=== PATIENT | male | born 1965 | race Caucasian/White ===

== ENCOUNTER 2018-04-29 14:37 | Inpatient (IN) | payer OTHER ==
--- NOTE | 2018-04-29 15:06 | PDOC ---
History of Present Illness - General Chief Complaint: Altered Mental Status Stated Complaint: AMS Time Seen by Provider: 04/29/18 15:06 - History of Present Illness Initial Comments: 04/29/18 15:13 Mr. Medina is a 52 yo male w/ pmh of diffuse large B cell lymphoma s/p chemotherapy complicated by aplastic anemia (last chemo in February R-CHOP, itMTX ; discontinued as patient platelets were reportedly extremely low) who presents for evaluation of altered mental status. Patient had been recently admitted to [facility] 01/31/18-02/11/2018 for SOB w/ hematemesis, multiple falls, and AMS and was found to be in aplastic crisis with SAH, distributive shock, and lactic acidosis. Was treated in NSICU for IV ABX and blood products. R-ICE started . Patient discharged with dx of paraneoplastic vs. disease infiltration for outpatient f/u. Niece who is with him reports he had been improving since then however yesterday started "talking to the air" however responding appropriately. Today they noticed him not answering questions appropriately at all. Niece also believes he has looked yellow for 3-4 days. Denies other symptoms at this time. FULL CODE Past History - Past Medical History Allergies/Adverse Reactions: Allergies Allergy/AdvReac Type Severity Reaction Status Date / Time No Known Allergies Allergy Verified 04/29/18 15:04 Home Medications: Ambulatory Orders Eltrombopag Olamine [Promacta] 50 mg PO DAILY 04/29/18 Filgrastim [Neupogen] 300 mcg IJ ASDIR 04/29/18 Filgrastim-Sndz [Zarxio] 300 mcg IJ ASDIR 04/29/18 Levofloxacin [Levaquin] 500 mg PO ASDIR 04/29/18 Posaconazole [Noxafil] 100 mg PO ASDIR 04/29/18 Valacyclovir HCl [Valtrex -] 1,000 mg PO ASDIR 04/29/18 Review of Systems - Review of Systems Comments:: 04/29/18 15:23 Unable to obtain further. *Physical Exam - Physical Exam Comments: 04/29/18 15:23 GENERAL: +Patient not oriented at this time. Appears yellow in color. Awake, alert, in no acute distress HEAD: No signs of trauma, normocephalic, atraumatic EYES: +Conjunctiva yellowed. PERRLA, EOMI, sclera anicteric ENT: Auricles normal inspection, hearing grossly normal, nares patent, oropharynx clear without exudates. Moist mucosa NECK: Normal ROM, supple, no lymphadenopathy, JVD, or masses LUNGS: No distress, speaks full sentences, clear to auscultation bilaterally HEART: Regular rate and rhythm, normal S1 and S2, no murmurs, rubs or gallops, peripheral pulses normal and equal bilaterally. ABDOMEN: Soft, nontender, normoactive bowel sounds. No guarding, no rebound. No masses EXTREMITIES: +Asterixis noted. Normal inspection, Normal range of motion, no edema. No clubbing or cyanosis. NEUROLOGICAL: +Right sided neglect noted. Cranial nerves II through XII grossly intact. Normal speech, no focal sensorimotor deficits SKIN: Warm, Dry, normal turgor, no rashes or lesions noted. ED Treatment Course - LABORATORY CBC & Chemistry Diagram: 04/29/18 15:30 04/29/18 15:30 Medical Decision Making - Medical Decision Making 04/29/18 16:21 Mr. Medina is a 52 yo male w/ pmh as described who presents for evaluation of symptoms concerning for aplastic anemia vs. cranial process vs. hyperammonemia vs. other acute process. Patient evaluation started with broad septic and AMS workup. Patient noted to be severely anemic upon CBC with low platelets; hematology paged (Abhilash Khan). 04/29/18 16:51 Patient lactate elevated. 04/29/18 16:58 2 units PRBC and 1 unit platelets ordered. Discussed patient with Hematology ( Dr. Zeng) who recommended empiric ABX Vanc/Zosyn for coverage. Agreed with blood products. 04/29/18 17:[address] negative for acute bleed. 04/29/18 17:[address] Perdomo of [facility] who did not believe patient stable for transfer at this time. Suggested admission to ICU for stabilization and agreed with patient receiving 2 units PRBC's and 1 unit platelets as well as ABX admin. No further oncologic treatment suggested emergently at this time beyond stabilization. Transfer to be revisited tomorrow. Patient Head CT negative. Patient CXR negative. 04/29/18 19:17 Discussed with MICHELLE Restrepo for admission to ICU. Patient niece made aware patient will stay. Divina [phone] Laboratory Results - last 24 hr 04/29/18 04/29/18 04/29/18 15:25 15:30 15:30 WBC 3.0 L RBC 0.67 L Hgb 2.2 L* Hct 6.0 L MCV 88.5 MCH 32.6 MCHC 36.9 H RDW 12.9 Plt Count 8 L* MPV 10.0 Absolute Neuts (auto) 1.3 L Neutrophils % 43.9 Lymphocytes % 38.7 Monocytes % 15.2 H Eosinophils % 1.7 Basophils % 0.5 Nucleated RBC % 0 PT with INR Cancelled INR Cancelled PTT (Actin FS) Cancelled VBG pH POC VBG pCO2 POC VBG pO2 VBG HCO3 VBG O2 Sat (Emily) VBG Base Excess Sodium Potassium Chloride Carbon Dioxide Anion Gap BUN Creatinine Creat Clearance w eGFR Random Glucose Lactic Acid Calcium Total Bilirubin AST ALT Alkaline Phosphatase Ammonia Troponin I Total Protein Albumin Urine Color Yellow Urine Appearance Clear Urine pH 6.0 Ur Specific [place] 1.011 Urine Protein Negative Urine Glucose (UA) Negative Urine Ketones Negative Urine Blood Negative Urine Nitrite Negative Urine Bilirubin Negative Urine Urobilinogen 0.2 Ur Leukocyte Esterase Trace Urine WBC (Auto) 3 Urine RBC (Auto) 3 Urine Casts (Auto) 6 U Epithel Cells (Auto) 1.9 Urine Bacteria (Auto) 1.512 Anti-A Titer Blood Type Antibody Screen Crossmatch 04/29/18 04/29/18 04/29/18 15:30 15:30 15:30 WBC RBC Hgb Hct MCV MCH MCHC RDW Plt Count MPV Absolute Neuts (auto) Neutrophils % Lymphocytes % Monocytes % Eosinophils % Basophils % Nucleated RBC % PT with INR INR PTT (Actin FS) VBG pH 7.24 L POC VBG pCO2 38.2 L POC VBG pO2 48.7 H VBG HCO3 15.9 L VBG O2 Sat (Emily) 71.4 VBG Base Excess -10.0 L Sodium 136 Potassium 4.8 Chloride 105 Carbon Dioxide 14 L Anion Gap 17 H BUN 13 Creatinine 1.2 Creat Clearance w eGFR 63.58 Random Glucose 112 H Lactic Acid Calcium 8.4 L Total Bilirubin 1.1 H AST 34 ALT 59 Alkaline Phosphatase 214 H Ammonia 51.50 H Troponin I < 0.02 Total Protein 6.5 Albumin 3.3 L Urine Color Urine Appearance Urine pH Ur Specific [place] Urine Protein Urine Glucose (UA) Urine Ketones Urine Blood Urine Nitrite Urine Bilirubin Urine Urobilinogen Ur Leukocyte Esterase Urine WBC (Auto) Urine RBC (Auto) Urine Casts (Auto) U Epithel Cells (Auto) Urine Bacteria (Auto) Anti-A Titer Blood Type Antibody Screen Crossmatch 04/29/18 04/29/18 04/29/18 15:30 16:24 17:15 WBC RBC Hgb Hct MCV MCH MCHC RDW Plt Count MPV Absolute Neuts (auto) Neutrophils % Lymphocytes % Monocytes % Eosinophils % Basophils % Nucleated RBC % PT with INR INR PTT (Actin FS) VBG pH POC VBG pCO2 POC VBG pO2 VBG HCO3 VBG O2 Sat (Emily) VBG Base Excess Sodium Potassium Chloride Carbon Dioxide Anion Gap BUN Creatinine Creat Clearance w eGFR Random Glucose Lactic Acid 9.4 H* 6.2 H* Calcium Total Bilirubin AST ALT Alkaline Phosphatase Ammonia Troponin I Total Protein Albumin Urine Color Urine Appearance Urine pH Ur Specific [place] Urine Protein Urine Glucose (UA) Urine Ketones Urine Blood Urine Nitrite Urine Bilirubin Urine Urobilinogen Ur Leukocyte Esterase Urine WBC (Auto) Urine RBC (Auto) Urine Casts (Auto) U Epithel Cells (Auto) Urine Bacteria (Auto) Anti-A Titer Blood Type A POSITIVE Antibody Screen Negative Crossmatch See Detail 04/29/18 04/29/18 17:15 17:15 WBC RBC Hgb Hct MCV MCH MCHC RDW Plt Count MPV Absolute Neuts (auto) Neutrophils % Lymphocytes % Monocytes % Eosinophils % Basophils % Nucleated RBC % PT with INR INR PTT (Actin FS) VBG pH POC VBG pCO2 POC VBG pO2 VBG HCO3 VBG O2 Sat (Emily) VBG Base Excess Sodium Potassium Chloride Carbon Dioxide Anion Gap BUN Creatinine Creat Clearance w eGFR Random Glucose Lactic Acid Calcium Total Bilirubin AST ALT Alkaline Phosphatase Ammonia Troponin I Total Protein Albumin Urine Color Urine Appearance Urine pH Ur Specific [place] Urine Protein Urine Glucose (UA) Urine Ketones Urine Blood Urine Nitrite Urine Bilirubin Urine Urobilinogen Ur Leukocyte Esterase Urine WBC (Auto) Urine RBC (Auto) Urine Casts (Auto) U Epithel Cells (Auto) Urine Bacteria (Auto) Anti-A Titer Cancelled Blood Type Cancelled A POSITIVE Antibody Screen Cancelled Crossmatch *DC/Admit/Observation/Transfer Diagnosis at time of Disposition: Aplastic anemia B-cell lymphoma Qualifiers: B-cell lymphoma type: diffuse large B-cell Lymphoma site: unspecified region Qualified Code(s): C83.30 - Diffuse large B-cell lymphoma, unspecified site - Discharge Dispostion Decision to Admit order: Yes - Referrals - Patient Instructions - Post Discharge Activity
[2018-04-29 15:57] LABS: VENOUS PC02 38.2 mmHg (41-51); VENOUS PH 7.24 (7.31-7.41); VENOUS PO2 48.7 mmHg (30-40)
[2018-04-29 16:09] LABS: BASO % 0.5 % (0-2.0); EOS % 1.7 % (0-4.5); LYMPH % 38.7 % (8-40); MCH 32.6 pg (25.7-33.7); MCHC 36.9 g/dl (32.0-35.9); MEAN CELL VOLUME 88.5 fl (80-96); MONO % 15.2 % (3.8-10.2); NEUT % 43.9 % (42.8-82.8); RBC 0.67 M/mm3 (4.00-5.60); RDW 12.9 % (11.9-15.9)
[2018-04-29 16:15] LABS: HEMOGLOBIN 2.2 GM/dL (11.7-16.9); PLATELET COUNT 8 K/MM3 (134-434)
[2018-04-29 16:26] LABS: ALBUMIN 3.3 g/dl (3.4-5.0); ALK PHOS 214 U/L (45-117); ANION GAP 17 MMOL/L (8-16); BILIRUBIN,TOTAL 1.1 mg/dL (0.2-1); BLOOD UREA NITROGEN 13 mg/dL (7-18); CALCIUM 8.4 mg/dL (8.5-10.1); CHLORIDE 105 mmol/L (98-107); CO2 14 mmol/L (21-32); CREATININE 1.2 mg/dL (0.55-1.3); GLUCOSE,RANDOM 112 mg/dL (74-106); POTASSIUM 4.8 mmol/L (3.5-5.1); SGOT/AST 34 U/L (15-37); SGPT/ALT 59 U/L (13-61); SODIUM 136 mmol/L (136-145); TOT PROT 6.5 g/dl (6.4-8.2)
[2018-04-29] MEDS ORDERED: LORazepam 2 MG/ML SDV VIAL ONE (16:26)
[2018-04-29 16:41] LABS: EPI CELLS 1.9 /HPF (0-5); URINE APPEARANCE CLEAR; URINE BACTERIA 1.512 /hpf (NEGATIVE); URINE BILIRUBIN NEGATIVE (<2.0 mg/dL); URINE CASTS 6 /hpf (0-8); URINE COLOR YELLOW; URINE GLUCOSE (UA) NEGATIVE (NEGATIVE); URINE KETONE NEGATIVE (NEGATIVE); URINE LEUK ESTERASE TRACE (NEGATIVE); URINE NITRITE NEGATIVE (NEGATIVE); URINE PROTEIN NEGATIVE (NEGATIVE); URINE RBC 3 /hpf (0-4); URINE UROBILINOGEN 0.2 mg/dL (0.2-1.0); URINE WBC 3 /hpf (0-5)
[2018-04-29] MEDS ORDERED: PIPERACILLIN/TAZOB 3.375 GM 3.375 GM in DEXTROSE 5%-WATER - 50 ML IVPB ONE (16:57)
[2018-04-29] MEDS ORDERED: VANCOMYCIN 1 GM in D5W (PRE-DOCKED) 1,000 MG/250 ML IVPB ONE (16:57)
[2018-04-29] MEDS ORDERED: PIPERACILLIN/TAZOB 3.375 GM 3.375 GM/50 ML BAG IVPB ONE (17:07)
[2018-04-29] MEDS ORDERED: VANCOMYCIN 1 GRAM (PRE-DOCKED) 1,000 MG/250 ML BAG IVPB ONE (17:27)
--- NOTE | 2018-04-29 17:30 | PDOC ---
Attending Attestation - HPI HPI: 04/29/18 17:33 The patient is a 52-year-old female with past medical history significant for B cell lymphoma s/p chemotherapy complicated by aplastic anemia (the last chemo in February R-CHOP, itMTX; discontinued as patient platelets were reportedly extremely low) presents to the emergency department for AMS. Per niece at the bedside, The patients been acting weird for the past 2 days, states she noticed the patient was talking to the air 2 days ago, however, the patient was responding appropriately. Which changes earlier today, states the patient wasn t answering questions appropriately. The niece reports associated symptoms of the patient appear more yellow for the past 3-4 days. The patient lives with family members. The patient was admitted to [facility] on 01/31/2018 for shortness of breath with hematemesis, AMS and multiple falls. The patient was found to be an aplastic crisis with SAH, distributive shock, and lactic acidosis. The patient was treated in NSICU with IV abx and blood product. The patient was started on R -ICE on 02/08/2018. The patient was discharged on 02/11/2018 with a dx of paraneoplastic vs. disease infiltration for outpatient f/u. Allergies: NKDA PCP: Not on staff. - Physicial Exam PE: 04/29/18 17:32 GENERAL: AOx0. The patient is awake. in no acute distress HEAD: No signs of trauma EYES: PERRLA, EOMI, scleral icterus, conjunctiva clear ENT: Auricles normal inspection, hearing grossly normal, nares patent. Moist mucosa NECK: supple, no JVD, or masses LUNGS: Breath sounds equal, clear to auscultation bilaterally. No wheezes, and no crackles HEART: Regular rate and rhythm, normal S1 and S2, no murmurs, rubs or gallops ABDOMEN: Soft, nontender. No guarding, no rebound. No masses EXTREMITIES: no edema. No clubbing or cyanosis. No cords, erythema, or tenderness NEUROLOGICAL: +right side neglect, doesnt follow commands, appears to move extremities grossly. SKIN: Warm, Dry, normal turgor, no rashes or lesions noted. - Medical Decision Making 04/29/18 17:33 Documentation prepared by Liliana Truong, acting as medical authorization specialist for Presley Pollock MD. 04/29/18 17:34 Phone Call: Call placed to Dr. Santoro/Azucena at 4:47 pm. Spoke with service and waiting for a call back. Case discussed with Dr. Zeng at 4:52 pm. Call placed to [facility] 5:24 pm. Information exchanged with the service. Waiting for a call back from Dr. Del Rosario, on-call hem/onc. Second call placed to [facility] 6:11 pm. Case discussed with Dr. Perdomo at 6:17 pm. 04/29/18 17:41 EXAM: CT Head EXAM DATE AND TIME: 2018-04-29 16:36:22 FINDINGS: The cerebral sulci and ventricles are normal in size for the patient' s age. There are no intracranial hemorrhages, extra-axial fluid collections or evidence of an intra-axial mass lesion. There is no clear evidence of chronic ischemic demyelination. Cerebral grijalva/white matter differentiation is preserved , without clear evidence of an acute ischemic lesion at this time. Orbital and petrous structures, cerebellopontine angles, and posterior fossa appear unremarkable. The paranasal and mastoid sinuses are clear. IMPRESSION: The study is otherwise unremarkable. No evidence of acute or chronic ischemic change. No intracranial hemorrhages, extra-axial fluid collections or intra- axial mass lesion. THIS DOCUMENT HAS BEEN ELECTRONICALLY SIGNED Tony Chinchilla MD. 04/29/2018 17:10 EST <Liliana Truong - Last Filed: 04/29/18 18:17> - Resident Resident Name: Edmond Anna - ED Attending Attestation I have performed the following: I have examined & evaluated the patient, The case was reviewed & discussed with the resident, I agree w/resident's findings & plan, Exceptions are as noted - Medical Decision Making 04/29/18 17:28 A portion of this note was documented by scribe services under my direction. I have reviewed the details of the note, within reason, and agree with the documentation with the following case summary and management plan written by me. Patient treated in the ED. Nursing notes are reviewed and incorporated into the medical decision-making. Vital signs reviewed. Peripheral IV access obtained by the nurse, laboratory studies are drawn and sent, reviewed and interpreted by myself. Vital Signs Temp Pulse Resp BP Pulse Ox 97.2 F L 117 H 16 126/64 100 04/29/18 15:29 04/29/18 16:50 04/29/18 16:50 04/29/18 16:50 04/29/18 16:50 52-year-old male with past medical history of diffuse B-cell lymphoma, last chemotherapy in February 2018, plastic anemia, presents with altered mental status. Since yesterday, the patient's niece had noted that the patient has become increasingly altered. The patient has been neglecting his right side. An has also noticed that he's becoming increasing jaundice. Patient denies any pain but otherwise does not follow directions. Patient's blood work demonstrates anemia as well as from a cytopenia. Initially I was concerned for spontaneous brain bleed but the head CT is negative. We'll however need transfused PRBCs and platelets. Patient's has an elevated lactate so we'll cover empirically with vancomycin and Zosyn. The patient's symptoms and findings are likely secondary to his cancer. Given the complexity of the case, case is discussed with Dr. Zeng. Requests that we speak to Harsha Lucien/ Onc. 04/29/18 18:35 CBC, BMP 04/29/18 15:30 04/29/18 15:30 CMP Sodium 136 mmol/L (136-145) 04/29/18 15:30 Potassium 4.8 mmol/L (3.5-5.1) 04/29/18 15:30 Chloride 105 mmol/L (98-107) 04/29/18 15:30 Carbon Dioxide 14 mmol/L (21-32) L 04/29/18 15:30 Anion Gap 17 MMOL/L (8-16) H 04/29/18 15:30 BUN 13 mg/dL (7-18) 04/29/18 15:30 Creatinine 1.2 mg/dL (0.55-1.3) 04/29/18 15:30 Creat Clearance w eGFR 63.58 (>60) 04/29/18 15:30 Random Glucose 112 mg/dL (74-106) H 04/29/18 15:30 Lactic Acid 6.2 mmol/L (0.4-2.0) H* 04/29/18 17:15 Calcium 8.4 mg/dL (8.5-10.1) L 04/29/18 15:30 Total Bilirubin 1.1 mg/dL (0.2-1) H 04/29/18 15:30 AST 34 U/L (15-37) 04/29/18 15:30 ALT 59 U/L (13-61) 04/29/18 15:30 Alkaline Phosphatase 214 U/L (45-117) H 04/29/18 15:30 Ammonia 51.50 umol/L (11-32) H 04/29/18 15:30 Troponin I < 0.02 ng/ml (0.00-0.05) 04/29/18 15:30 Total Protein 6.5 g/dl (6.4-8.2) 04/29/18 15:30 Albumin 3.3 g/dl (3.4-5.0) L 04/29/18 15:30 Urine Test Results Urine Color Yellow 04/29/18 15:25 Urine Appearance Clear 04/29/18 15:25 Urine pH 6.0 (5.0-8.0) 04/29/18 15:25 Ur Specific [place] 1.011 (1.010-1.035) 04/29/18 15:25 Urine Protein Negative (NEGATIVE) 04/29/18 15:25 Urine Glucose (UA) Negative (NEGATIVE) 04/29/18 15:25 Urine Ketones Negative (NEGATIVE) 04/29/18 15:25 Urine Blood Negative (NEGATIVE) 04/29/18 15:25 Urine Nitrite Negative (NEGATIVE) 04/29/18 15:25 Urine Bilirubin Negative (<2.0 mg/dL) 04/29/18 15:25 Ur Leukocyte Esterase Trace (NEGATIVE) 04/29/18 15:25 Pt's laboratory demonstrates multiple issues. Pt is anemic and pt thrombocytopenic. Case discussed with Dr. Del Rosario (Heme onc attending). Agrees with our plan for PRBCs and platelets. Head CT is negative for bleed. Given elevated lactic acid and SBP 90s, states that we should treat this as sepsis. Pt given vanc and zosyn. Dr. Perdomo states patient should be stabilized and should be transferred tomorrow once stabilized. States no new other treatments needed, and we should treat as sepsis. After lengthy discussion with the attending, the patient will be kept here at [facility] ICU and then considered for transfer tomorrow. <Presley Pollock - Last Filed: 04/29/18 18:38> Heart Score/ECG Review #1 ECG reviewed & interpreted by me at: 17:35 04/29/18 17:54 NSR 101, low voltage QRS, no std/nikole, QTC 461 msec <Presley Pollock - Last Filed: 04/29/18 18:38>
[2018-04-29 19:18] LABS: INR 1.2 (0.83-1.09); PROTHROMBIN TIME (PATIENT) 14.2 SEC (9.7-13.0)
--- NOTE | 2018-04-29 19:44 | PN ---
Teaching Attending Note Name of Resident: Angel Ramsey ATTENDING PHYSICIAN STATEMENT I saw and evaluated the patient. I reviewed the resident's note and discussed the case with the resident. I agree with the resident's findings and plan as documented. SUBJECTIVE: Seen and examined; please refer to resident note for further historical documentation. Briefly, this is a 52 y/o male presenting to the ER with AMS; niece saw him at home and noted that he was stuttering and not responding to questions appropriately. He was found to have aplastic anemia. ER and ICU spoke with [facility] who requested that we stabilize the patient and that they would accept him tomorrow. In the ER he was able to follow simple commands but was unable to speak just responding with sounds. Difficult neuro exam but no obvious FNDs. In terms of his cancer care, he was on RICE/itMTX but has not gotten treatment since early March due to issues with aplastic crisis. Hospitalized earlier this year at [facility] for AMS, falls, hemetemsis, SAH and distributive shock with lactic acidosis. Diagnosis at that time was paraneoplasticvs. disease infiltration. Niece provided history to ER but was unfortunately gone by the time I got there. When I saw the patient he was already in the ICU and he was mentating better than aforementioned with hemodynamics improved (stable BP, HR 110s) and he had already gotten 2 units of blood at that time. He is on prophys with valtrex/noxafil/LQ as documented. Neupogen and promacta noted on med list as well. ER discussed with Dr. Zeng who recommended vanc and zosyn. Per documentation they spoke with Dr. Perdomo of [facility] who recommended stabilation prior to xf. He has been accepted to the ICU and will be monitored on our service. 10 sys ROS done and negative aside from HPI PMH (B-cell lymphoma follows at [facility]), PSH, Family hx, Social hx reviewed Medications reviewed; pending reconciliation Home Medications Medication Instructions Recorded Eltrombopag Olamine [Promacta] 50 mg PO DAILY 04/29/18 Filgrastim [Neupogen] 300 mcg IJ ASDIR 04/29/18 Filgrastim-Sndz [Zarxio] 300 mcg IJ ASDIR 04/29/18 Levofloxacin [Levaquin] 500 mg PO ASDIR 04/29/18 Posaconazole [Noxafil] 100 mg PO ASDIR 04/29/18 Valacyclovir HCl [Valtrex -] 1,000 mg PO ASDIR 04/29/18 OBJECTIVE: VS, labs, imaging reviewed NAD, AAOx1, resting in bed, pale and confused NC AT EOMI PERRLA Tachycardic but sinus, s1/2 no mgr Lungs CTAB, w/ sym exp NT ND +BS CN2-12 wnl, no fnd, only orientated to self. Confused; poor thought progression and thought content lacking only; not agitated CT head done negative for acute pathology Labs show pancytopenia across all cell lines. ASSESSMENT AND PLAN: Presents to the hospital with AMS found to have aplastic crisis with AG+ Lactic Acidosis; he has B-cell lymphoma for which he follows at [facility] 1) Pancytopenia/Aplastic Crisis 2) Lactic Acidosis 3) Elevated bilirubin/Alk Phos -Niece concerned at home he was 'looking yellow;' I do not know if his bili is baseline elevated or not. Check GGT and RUQ u/s; would be useful to compare to old labs at [facility]. Checking lipase. If needed consult GI. 4) Elevated Ammonia 5) Neutropenia 6) Altered mental status 7) B-cell Lymphoma (s/p R-ICE, itMTX) Admitting to ICU; transfusing 2 units PRBC and placing 2 on hold. Transfusing platelets. Continue vanc and zosyn; noted on prophys so will continue valtrex and noxafil for now and defer further tx to heme/onc and ID. Consulting ID. Plan to transfer tomorrow to [facility] once stabilized. Frequent neuro checks with seizure precautions, NPO for now. Mentation is improved from ER to ICU. Consider hepatic encephalopathy as potential cause; consider starting lactulose in AM (avoiding rectal given neutropenia and furthermore his mentation, while slightly improved, would be prohibitive of reliable oral dosing) Aggressively hydrating and rechecking lactate; trended down to 6. Will continue to trend and keep him on isotonic fluids overnight. Appreciate excellent care rendered in ER and ICU Full Code
--- NOTE | 2018-04-29 21:54 | HP ---
CHIEF COMPLAINT: AMS PCP: HISTORY OF PRESENT ILLNESS: 52 yo M w/ pmhx of diffuse large B cell lymphoma s/p chemotherapy complicated by aplastic anemia (last chemo in February R-CHOP, itMTX; discontinued as patient platelets were reportedly extremely low) who presents for evaluation of altered mental status. Patient had been recently admitted to [facility] 01/31/18 -02/11/2018 for SOB w/ hematemesis, multiple falls, and AMS and was found to be in aplastic crisis with SAH, distributive shock, and lactic acidosis. Was treated in NSICU for IV ABX and blood products. R-ICE started 02/08/18. Patient discharged with dx of paraneoplastic vs. disease infiltration for outpatient f/ u. Niece who is with him reports he had been improving since then however yesterday started "talking to the air" however responding appropriately. Today they noticed him not answering questions appropriately at all. Niece also believes he has looked yellow for 3-4 days. ER course was notable for: (1) Labs show aplastic anemia (2)1 unit PRBC's (3)1 unit Plt.s Recent Travel: denies PAST MEDICAL HISTORY: B-cell lymphoma PAST SURGICAL HISTORY: none mentioned by niece. Social History: Smoking:never Alcohol:denied Drugs: denied Family History: Allergies No Known Allergies Allergy (Verified 04/29/18 15:04) HOME MEDICATIONS: Home Medications Medication Instructions Recorded Eltrombopag Olamine [Promacta] 50 mg PO DAILY 04/29/18 Filgrastim [Neupogen] 300 mcg IJ ASDIR 04/29/18 Filgrastim-Sndz [Zarxio] 300 mcg IJ ASDIR 04/29/18 Levofloxacin [Levaquin] 500 mg PO ASDIR 04/29/18 Posaconazole [Noxafil] 100 mg PO ASDIR 04/29/18 Valacyclovir HCl [Valtrex -] 1,000 mg PO ASDIR 04/29/18 REVIEW OF SYSTEMS unable to obtain 2/2 clinical condition. PHYSICAL EXAMINATION Vital Signs - 24 hr 04/29/18 04/29/18 04/29/18 15:04 15:29 16:50 Temperature 97.2 F L Pulse Rate 114 H Pulse Rate [ 117 H Apical] Respiratory 24 H 16 Rate Blood Pressure 94/60 Blood Pressure 126/64 [Right Arm] O2 Sat by Pulse 92 L 100 Oximetry (%) 04/29/18 04/29/18 04/29/18 18:03 18:27 18:35 Temperature 98.3 F 98.5 F Pulse Rate 103 H Pulse Rate [ 92 H 92 H Apical] Respiratory 16 12 16 Rate Blood Pressure 110/90 Blood Pressure 76/39 L 95/50 L [Right Arm] O2 Sat by Pulse 97 97 Oximetry (%) 04/29/18 19:57 Temperature Pulse Rate Pulse Rate [ 90 Apical] Respiratory 18 Rate Blood Pressure Blood Pressure 91/60 [Right Arm] O2 Sat by Pulse 100 Oximetry (%) GENERAL: lethargic minimally responsive. HEAD: NCAT EYES: PERRLA,EOMI, sclera anicteric, conjunctiva clear. EARS, NOSE, THROAT:dry mucous membranes. NECK: supple with JVD present. LUNGS: CTAB. No wheezes, and no crackles. No accessory muscle use. HEART: RRR, normal S1 and S2 without murmur, rub or gallop. ABDOMEN: Soft, NTND, NABS, no guarding, no rebound, no masses. No hepatomegaly or splenomegaly. LOWER EXTREMITIES: 2+ pulses, warm, well-perfused. No calf tenderness. No peripheral edema. NEUROLOGICAL: lethargic and minimally responsive. PSYCHIATRIC: uncooperative. poor eye contact. SKIN: Warm, dry, normal turgor, no rashes or lesions noted, normal capillary refill. Laboratory Results - last 24 hr 04/29/18 04/29/18 04/29/18 15:25 15:30 15:30 WBC 3.0 L RBC 0.67 L Hgb 2.2 L* Hct 6.0 L MCV 88.5 MCH 32.6 MCHC 36.9 H RDW 12.9 Plt Count 8 L* MPV 10.0 Absolute Neuts (auto) 1.3 L Neutrophils % 43.9 Lymphocytes % 38.7 Monocytes % 15.2 H Eosinophils % 1.7 Basophils % 0.5 Nucleated RBC % 0 PT with INR Cancelled INR Cancelled PTT (Actin FS) Cancelled VBG pH POC VBG pCO2 POC VBG pO2 VBG HCO3 VBG O2 Sat (Emily) VBG Base Excess Sodium Potassium Chloride Carbon Dioxide Anion Gap BUN Creatinine Creat Clearance w eGFR Random Glucose Lactic Acid Calcium Total Bilirubin AST ALT Alkaline Phosphatase Ammonia Troponin I Total Protein Albumin Urine Color Yellow Urine Appearance Clear Urine pH 6.0 Ur Specific [place] 1.011 Urine Protein Negative Urine Glucose (UA) Negative Urine Ketones Negative Urine Blood Negative Urine Nitrite Negative Urine Bilirubin Negative Urine Urobilinogen 0.2 Ur Leukocyte Esterase Trace Urine WBC (Auto) 3 Urine RBC (Auto) 3 Urine Casts (Auto) 6 U Epithel Cells (Auto) 1.9 Urine Bacteria (Auto) 1.512 Anti-A Titer Blood Type Antibody Screen Crossmatch 04/29/18 04/29/18 04/29/18 15:30 15:30 15:30 WBC RBC Hgb Hct MCV MCH MCHC RDW Plt Count MPV Absolute Neuts (auto) Neutrophils % Lymphocytes % Monocytes % Eosinophils % Basophils % Nucleated RBC % PT with INR INR PTT (Actin FS) VBG pH 7.24 L POC VBG pCO2 38.2 L POC VBG pO2 48.7 H VBG HCO3 15.9 L VBG O2 Sat (Emily) 71.4 VBG Base Excess -10.0 L Sodium 136 Potassium 4.8 Chloride 105 Carbon Dioxide 14 L Anion Gap 17 H BUN 13 Creatinine 1.2 Creat Clearance w eGFR 63.58 Random Glucose 112 H Lactic Acid Calcium 8.4 L Total Bilirubin 1.1 H AST 34 ALT 59 Alkaline Phosphatase 214 H Ammonia 51.50 H Troponin I < 0.02 Total Protein 6.5 Albumin 3.3 L Urine Color Urine Appearance Urine pH Ur Specific [place] Urine Protein Urine Glucose (UA) Urine Ketones Urine Blood Urine Nitrite Urine Bilirubin Urine Urobilinogen Ur Leukocyte Esterase Urine WBC (Auto) Urine RBC (Auto) Urine Casts (Auto) U Epithel Cells (Auto) Urine Bacteria (Auto) Anti-A Titer Blood Type Antibody Screen Crossmatch 04/29/18 04/29/18 04/29/18 15:30 16:24 17:15 WBC RBC Hgb Hct MCV MCH MCHC RDW Plt Count MPV Absolute Neuts (auto) Neutrophils % Lymphocytes % Monocytes % Eosinophils % Basophils % Nucleated RBC % PT with INR INR PTT (Actin FS) VBG pH POC VBG pCO2 POC VBG pO2 VBG HCO3 VBG O2 Sat (Emily) VBG Base Excess Sodium Potassium Chloride Carbon Dioxide Anion Gap BUN Creatinine Creat Clearance w eGFR Random Glucose Lactic Acid 9.4 H* 6.2 H* Calcium Total Bilirubin AST ALT Alkaline Phosphatase Ammonia Troponin I Total Protein Albumin Urine Color Urine Appearance Urine pH Ur Specific [place] Urine Protein Urine Glucose (UA) Urine Ketones Urine Blood Urine Nitrite Urine Bilirubin Urine Urobilinogen Ur Leukocyte Esterase Urine WBC (Auto) Urine RBC (Auto) Urine Casts (Auto) U Epithel Cells (Auto) Urine Bacteria (Auto) Anti-A Titer Blood Type A POSITIVE Antibody Screen Negative Crossmatch See Detail 04/29/18 04/29/18 04/29/18 17:15 17:15 17:32 WBC RBC Hgb Hct MCV MCH MCHC RDW Plt Count MPV Absolute Neuts (auto) Neutrophils % Lymphocytes % Monocytes % Eosinophils % Basophils % Nucleated RBC % PT with INR 14.20 H INR 1.20 H PTT (Actin FS) 26.0 VBG pH POC VBG pCO2 POC VBG pO2 VBG HCO3 VBG O2 Sat (Emily) VBG Base Excess Sodium Potassium Chloride Carbon Dioxide Anion Gap BUN Creatinine Creat Clearance w eGFR Random Glucose Lactic Acid Calcium Total Bilirubin AST ALT Alkaline Phosphatase Ammonia Troponin I Total Protein Albumin Urine Color Urine Appearance Urine pH Ur Specific [place] Urine Protein Urine Glucose (UA) Urine Ketones Urine Blood Urine Nitrite Urine Bilirubin Urine Urobilinogen Ur Leukocyte Esterase Urine WBC (Auto) Urine RBC (Auto) Urine Casts (Auto) U Epithel Cells (Auto) Urine Bacteria (Auto) Anti-A Titer Cancelled Blood Type Cancelled A POSITIVE Antibody Screen Cancelled Crossmatch ASSESSMENT/PLAN: 52 yo M w/ pmhx of 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 Problem List - Problem (1) Aplastic anemia Assessment/Plan: admit to ICU * transfused 2 units of PRBC will order for 2 more. - repeat CBC in AM * Transfuse plt. * CT head was negative for acute bleed. * Empiric antibiotics. * Continue Prophylaxis with Valacyclovir and antifungal * ID consult * Heme/Onc consult * awaiting transfer to [facility] (2) B-cell lymphoma Visit type - Emergency Visit Emergency Visit: Yes ED Registration Date: 04/29/18 Care time: The patient presented to the Emergency Department on the above date and was hospitalized for further evaluation of their emergent condition. - New Patient This patient is new to me today: Yes Date on this admission: 04/30/18 - Critical Care Critical Care patient: Yes Total Critical Care Time (in minutes): 63 Critical Care Statement: The care of this patient involved high complexity decision making to prevent further life threatening deterioration of the patient 's condition and/or to evaluate & treat vital organ system(s) failure or risk of failure.
[2018-04-29] MEDS: MUPIROCIN 2% TOPICAL OINTMENT FOR DECOLONIZATION NS SCH (22:43)
[2018-04-29] MEDS: CHLORHEXIDINE GLUCONATE 4% CLEANSER FOR DECOLONIZATION TP SCH (22:43)
[2018-04-29] MEDS ORDERED: LORazepam 2 MG/ML SDV VIAL IVPUSH STA (23:25)
[2018-04-29] MEDS ORDERED: valACYclovir HCL 1000 MG TABLET PO SCH (23:30)
[2018-04-29] MEDS: LORazepam 2 MG/ML SDV VIAL IVPUSH PRN (23:57)
[2018-04-30] MEDS: SODIUM CHLORIDE 1,000 ML IV SCH (02:24)
[2018-04-30 02:55] LABS: BASO % 0.2 % (0-2.0); EOS % 1.9 % (0-4.5); HEMATOCRIT 10.8 % (35.4-49); HEMOGLOBIN 3.9 GM/dL (11.7-16.9); LYMPH % 19.5 % (8-40); MCH 29.2 pg (25.7-33.7); MCHC 36.4 g/dl (32.0-35.9); MEAN CELL VOLUME 80.3 fl (80-96); MEAN PLT VOLUME 8.5 fl (7.5-11.1); MONO % 19.3 % (3.8-10.2); NEUT % 59.1 % (42.8-82.8); PLATELET COUNT 47 K/MM3 (134-434); RBC 1.35 M/mm3 (4.00-5.60); RDW 14.4 % (11.9-15.9); WHITE BLOOD COUNT 1.3 K/mm3 (4.0-10.0)
[2018-04-30] MEDS ORDERED: SODIUM BICARBONATE 8.4% - 50 ML ONE (04:21)
[2018-04-30 05:28] LABS: ANISOCYTOSIS 2+; MACROCYTOSIS 1+; PLATELET ESTIMATE DECREASED
--- NOTE | 2018-04-30 07:42 | CONSULT ---
Consult Consult Specialty:: PULM/CCM Referred by:: Dr. Baldo Kirk Reason for Consultation:: Neutropenic infection/AA crisis - History of Present Illness Chief Complaint: AMS History of Present Illness: Mr. Medina is a 52 y/o man w/ DLBCL on Chemo c/b AA (last chemo in February R- CHOP + itMTX; d/c'ed 2/2 thrombocytopenia) pt of Dr. Santoro & Dr. Zeng ( [facility] Heme/Onc). Pt family presents the pt to the ED yesterday (04/29) for AMS (talking to the air, not making any sense). Of note, the pt is followed by Onc at [facility]. The pt receives all of his care at [facility]. All of the pt's records are at [facility]. The [facility] to [facility]. The pt was admitted last to [facility] on 01/31/2018 for AMS, multiple falls, hematemesis, & SOB. At that time the pt was found to be in AA crisis w/ distributive shock & an SAH. The patient was treated in NSICU with IV abx and blood products. The patient was started on R-ICE on 02/08/2018. The patient was discharged on 02/11/2018 with a dx of paraneoplastic vs. disease infiltration for outpatient f/u. In the ED the pt was notable for stewart-cytopenia, fever, and AMS m/l multifactorial: neutropenic infection, Chemo, bone marrow suppression, AA crisis all or any combo there of +/-. I instructed Dr. Edmond Perez to: stewart-clxr, adm PRBCs X2U, Plts, Vanc, Zo, & immediately X-Vamsi the pt to [facility] for best patient care. I explained that once the pt is admitted to this ICU he becomes an ICU - ICU X- Vamsi which is very difficult w/ [facility]. I explained that the fastest, safest , and best course for this patient would be immediately X-Vamsi the pt to [facility] s/p PRBCs, Plts, & Abx. My instructions were completely disregarded and the pt was promptly sent to this ICU. - History Source History Provided By: Transfer Record Limitations to Obtaining History: Clinical Condition - Past Medical History Heme/Onc: Yes: Anemia, Other (DLBCL) Infectious Disease: Yes: Other (Neutropenic) - Alcohol/Substance Use Hx Alcohol Use: No - Smoking History Smoking history: Never smoked - Social History Usual Living Arrangement: Other (w/ Family) ADL: Family Assistance Place of : Other History of Recent Travel: No Home Medications - Allergies Allergies/Adverse Reactions: Allergies Allergy/AdvReac Type Severity Reaction Status Date / Time No Known Allergies Allergy Verified 04/29/18 15:04 - Home Medications Home Medications: Ambulatory Orders Eltrombopag Olamine [Promacta] 50 mg PO DAILY 04/29/18 Filgrastim [Neupogen] 300 mcg IJ ASDIR 04/29/18 Filgrastim-Sndz [Zarxio] 300 mcg IJ ASDIR 04/29/18 Levofloxacin [Levaquin] 500 mg PO ASDIR 04/29/18 Posaconazole [Noxafil] 100 mg PO ASDIR 04/29/18 Valacyclovir HCl [Valtrex -] 1,000 mg PO ASDIR 04/29/18 Family Disease History - Family Disease History Family History: Unable to Obtain (AMS) Review of Systems Unable to obtain ROS, reason: AMS Physical Exam Vital Signs: Vital Signs Temperature 97.4 F L 04/30/18 05:00 Pulse Rate 103 H 04/30/18 05:00 Respiratory Rate 12 04/30/18 05:00 Blood Pressure 92/63 04/30/18 05:00 O2 Sat by Pulse Oximetry (%) 100 04/29/18 19:57 Intake & Output 04/27/18 04/28/18 04/29/18 04/30/18 23:59 23:59 23:59 23:59 Intake Total 350 1100 Balance 350 1100 Weight 56.331 kg 56.331 kg Constitutional: Yes: Well Nourished, Anxious Eyes: Yes: WNL, Conjunctiva Clear, EOM Intact HENT: Yes: WNL, Atraumatic, Normocephalic Neck: Yes: WNL, Supple, Trachea Midline Cardiovascular: Yes: WNL, Regular Rate and Rhythm, Tachycardia, S1, S2 Respiratory: Yes: WNL, Regular, CTA Bilaterally Gastrointestinal: Yes: WNL, Normal Bowel Sounds, Soft ...Rectal Exam: Yes: Deferred Renal/: Yes: WNL Breast(s): Yes: WNL Musculoskeletal: Yes: WNL Extremities: Yes: WNL Edema: No Peripheral Pulses WNL: Yes Integumentary: Yes: Jaundice Neurological: Yes: Confusion ...Motor Strength: WNL Psychiatric: Yes: Agitated Labs: CBC, BMP 04/30/18 02:24 04/29/18 15:30 Laboratory Tests 04/29/18 04/29/18 04/29/18 15:25 15:30 15:30 WBC 3.0 L RBC 0.67 L Hgb 2.2 L* Hct 6.0 L MCV 88.5 MCH 32.6 MCHC 36.9 H RDW 12.9 Plt Count 8 L* MPV 10.0 Absolute Neuts (auto) 1.3 L Neutrophils % 43.9 Neutrophils % (Manual) Band Neutrophils % Lymphocytes % 38.7 Lymphocytes % (Manual) Monocytes % 15.2 H Monocytes % (Manual) Eosinophils % 1.7 Eosinophils % (Manual) Basophils % 0.5 Basophils % (Manual) Myelocytes % (Man) Promyelocytes % (Man) Blast Cells % (Manual) Nucleated RBC % 0 Metamyelocytes Hypochromia Platelet Estimate Polychromasia Poikilocytosis Anisocytosis Microcytosis Macrocytosis Spherocytes PT with INR Cancelled INR Cancelled PTT (Actin FS) Cancelled VBG pH POC VBG pCO2 POC VBG pO2 VBG HCO3 VBG O2 Sat (Emily) VBG Base Excess Sodium Potassium Chloride Carbon Dioxide Anion Gap BUN Creatinine Creat Clearance w eGFR Random Glucose Lactic Acid Calcium Total Bilirubin AST ALT Alkaline Phosphatase Ammonia Troponin I Total Protein Albumin Urine Color Yellow Urine Appearance Clear Urine pH 6.0 Ur Specific [place] 1.011 Urine Protein Negative Urine Glucose (UA) Negative Urine Ketones Negative Urine Blood Negative Urine Nitrite Negative Urine Bilirubin Negative Urine Urobilinogen 0.2 Ur Leukocyte Esterase Trace Urine WBC (Auto) 3 Urine RBC (Auto) 3 Urine Casts (Auto) 6 U Epithel Cells (Auto) 1.9 Urine Bacteria (Auto) 1.512 Anti-A Titer Blood Type Antibody Screen Crossmatch 04/29/18 04/29/18 04/29/18 15:30 15:30 15:30 WBC RBC Hgb Hct MCV MCH MCHC RDW Plt Count MPV Absolute Neuts (auto) Neutrophils % Neutrophils % (Manual) Band Neutrophils % Lymphocytes % Lymphocytes % (Manual) Monocytes % Monocytes % (Manual) Eosinophils % Eosinophils % (Manual) Basophils % Basophils % (Manual) Myelocytes % (Man) Promyelocytes % (Man) Blast Cells % (Manual) Nucleated RBC % Metamyelocytes Hypochromia Platelet Estimate Polychromasia Poikilocytosis Anisocytosis Microcytosis Macrocytosis Spherocytes PT with INR INR PTT (Actin FS) VBG pH 7.24 L POC VBG pCO2 38.2 L POC VBG pO2 48.7 H VBG HCO3 15.9 L VBG O2 Sat (Emily) 71.4 VBG Base Excess -10.0 L Sodium 136 Potassium 4.8 Chloride 105 Carbon Dioxide 14 L Anion Gap 17 H BUN 13 Creatinine 1.2 Creat Clearance w eGFR 63.58 Random Glucose 112 H Lactic Acid Calcium 8.4 L Total Bilirubin 1.1 H AST 34 ALT 59 Alkaline Phosphatase 214 H Ammonia 51.50 H Troponin I < 0.02 Total Protein 6.5 Albumin 3.3 L Urine Color Urine Appearance Urine pH Ur Specific [place] Urine Protein Urine Glucose (UA) Urine Ketones Urine Blood Urine Nitrite Urine Bilirubin Urine Urobilinogen Ur Leukocyte Esterase Urine WBC (Auto) Urine RBC (Auto) Urine Casts (Auto) U Epithel Cells (Auto) Urine Bacteria (Auto) Anti-A Titer Blood Type Antibody Screen Crossmatch 04/29/18 04/29/18 04/29/18 15:30 16:24 17:15 WBC RBC Hgb Hct MCV MCH MCHC RDW Plt Count MPV Absolute Neuts (auto) Neutrophils % Neutrophils % (Manual) Band Neutrophils % Lymphocytes % Lymphocytes % (Manual) Monocytes % Monocytes % (Manual) Eosinophils % Eosinophils % (Manual) Basophils % Basophils % (Manual) Myelocytes % (Man) Promyelocytes % (Man) Blast Cells % (Manual) Nucleated RBC % Metamyelocytes Hypochromia Platelet Estimate Polychromasia Poikilocytosis Anisocytosis Microcytosis Macrocytosis Spherocytes PT with INR INR PTT (Actin FS) VBG pH POC VBG pCO2 POC VBG pO2 VBG HCO3 VBG O2 Sat (Emily) VBG Base Excess Sodium Potassium Chloride Carbon Dioxide Anion Gap BUN Creatinine Creat Clearance w eGFR Random Glucose Lactic Acid 9.4 H* 6.2 H* Calcium Total Bilirubin AST ALT Alkaline Phosphatase Ammonia Troponin I Total Protein Albumin Urine Color Urine Appearance Urine pH Ur Specific [place] Urine Protein Urine Glucose (UA) Urine Ketones Urine Blood Urine Nitrite Urine Bilirubin Urine Urobilinogen Ur Leukocyte Esterase Urine WBC (Auto) Urine RBC (Auto) Urine Casts (Auto) U Epithel Cells (Auto) Urine Bacteria (Auto) Anti-A Titer Blood Type A POSITIVE Antibody Screen Negative Crossmatch See Detail 04/29/18 04/29/18 04/29/18 17:15 17:15 17:32 WBC RBC Hgb Hct MCV MCH MCHC RDW Plt Count MPV Absolute Neuts (auto) Neutrophils % Neutrophils % (Manual) Band Neutrophils % Lymphocytes % Lymphocytes % (Manual) Monocytes % Monocytes % (Manual) Eosinophils % Eosinophils % (Manual) Basophils % Basophils % (Manual) Myelocytes % (Man) Promyelocytes % (Man) Blast Cells % (Manual) Nucleated RBC % Metamyelocytes Hypochromia Platelet Estimate Polychromasia Poikilocytosis Anisocytosis Microcytosis Macrocytosis Spherocytes PT with INR 14.20 H INR 1.20 H PTT (Actin FS) 26.0 VBG pH POC VBG pCO2 POC VBG pO2 VBG HCO3 VBG O2 Sat (Emily) VBG Base Excess Sodium Potassium Chloride Carbon Dioxide Anion Gap BUN Creatinine Creat Clearance w eGFR Random Glucose Lactic Acid Calcium Total Bilirubin AST ALT Alkaline Phosphatase Ammonia Troponin I Total Protein Albumin Urine Color Urine Appearance Urine pH Ur Specific [place] Urine Protein Urine Glucose (UA) Urine Ketones Urine Blood Urine Nitrite Urine Bilirubin Urine Urobilinogen Ur Leukocyte Esterase Urine WBC (Auto) Urine RBC (Auto) Urine Casts (Auto) U Epithel Cells (Auto) Urine Bacteria (Auto) Anti-A Titer Cancelled Blood Type Cancelled A POSITIVE Antibody Screen Cancelled Crossmatch 04/30/18 04/30/18 02:24 02:24 WBC 1.3 L* RBC 1.35 L Hgb 3.9 L* Hct 10.8 L MCV 80.3 D MCH 29.2 D MCHC 36.4 H RDW 14.4 D Plt Count 47 L D MPV 8.5 D Absolute Neuts (auto) 0.8 L Neutrophils % 59.1 D Neutrophils % (Manual) 60.6 Band Neutrophils % 1.0 Lymphocytes % 19.5 D Lymphocytes % (Manual) 22.2 Monocytes % 19.3 H Monocytes % (Manual) 9 Eosinophils % 1.9 Eosinophils % (Manual) 0.0 Basophils % 0.2 Basophils % (Manual) 0.0 Myelocytes % (Man) 1 Promyelocytes % (Man) 0 Blast Cells % (Manual) 5 H Nucleated RBC % 0 Metamyelocytes 1 Hypochromia 1+ Platelet Estimate Decreased Polychromasia 0 Poikilocytosis 0 Anisocytosis 2+ Microcytosis 2+ Macrocytosis 1+ Spherocytes 1+ PT with INR INR PTT (Actin FS) VBG pH POC VBG pCO2 POC VBG pO2 VBG HCO3 VBG O2 Sat (Emily) VBG Base Excess Sodium Potassium Chloride Carbon Dioxide Anion Gap BUN Creatinine Creat Clearance w eGFR Random Glucose Lactic Acid 1.0 Calcium Total Bilirubin AST ALT Alkaline Phosphatase Ammonia Troponin I Total Protein Albumin Urine Color Urine Appearance Urine pH Ur Specific [place] Urine Protein Urine Glucose (UA) Urine Ketones Urine Blood Urine Nitrite Urine Bilirubin Urine Urobilinogen Ur Leukocyte Esterase Urine WBC (Auto) Urine RBC (Auto) Urine Casts (Auto) U Epithel Cells (Auto) Urine Bacteria (Auto) Anti-A Titer Blood Type Antibody Screen Crossmatch Imaging - Results Chest X-ray: Image Reviewed (CXR 04/29: Clear but PLEASE NOTE: cannot r/o PNA as pt is extremely volume down and this PNA may not show on CXR until the pt has been properly resucitated (My Read).) Cat Scan: Report Reviewed (04/29/18 17:41 EXAM: CT Head EXAM DATE AND TIME: 2018 16:36:22 FINDINGS: The cerebral sulci and ventricles are normal in size for the patient's age. There are no intracranial hemorrhages, extra-axial fluid collections or evidence of an intra-axial mass lesion. There is no clear evidence of chronic ischemic demyelination. Cerebral grijalva/white matter differentiation is preserved, without clear evidence of an acute ischemic lesion at this time. Orbital and petrous structures, cerebellopontine angles, and posterior fossa appear unremarkable. The paranasal and mastoid sinuses are clear. IMPRESSION: The study is otherwise unremarkable. No evidence of acute or chronic ischemic change. No intracranial hemorrhages, extra-axial fluid collections or intra-axial mass lesion.) Ultrasound: Report Reviewed (ABD US 04/29: Multiple gallbladder calculi are noted with resultant partial obscuration of the posterior gallbladder wall and fundus. There appears to be mild thickening of the visualized ventral gallbladder wall. No obvious pericholecystic fluid accumulation is noted allowing for partially obscuring artifact arising from the previously described multiple calculi. There is no obvious gallbladder overdistention. The common bile duct diameter appears unremarkable measuring 0.3 cm. The liver, right kidney and partially visualized pancreas demonstrate no obvious pathology. No free intraperitoneal fluid is seen. Impression: Cholelithiasis is noted above. There is mild nonspecific thickening of the visualized ventral gallbladder wall. Additional imaging evaluation may be performed if there is clinical concern for possible acute cholecystitis.) EKG: Image Reviewed (12 Lead 04/29: S-Tach @ 110 w/o ectopy, q'ued out in Lead I c/f LWI & global T-wave flattening but low QRS voltage, QTc = 454ms, very poor quality EKG, ?arm lead reversal --> difficult to interpret (My Read).) Problem List - Problems (1) Aplastic anemia Code(s): D61.9 - APLASTIC ANEMIA, UNSPECIFIED (2) B-cell lymphoma Code(s): C85.10 - UNSPECIFIED B-CELL LYMPHOMA, UNSPECIFIED SITE Qualifiers: B-cell lymphoma type: diffuse large B-cell Lymphoma site: unspecified region Qualified Code(s): C83.30 - Diffuse large B-cell lymphoma, unspecified site (3) Neutropenic sepsis Code(s): A41.9 - SEPSIS, UNSPECIFIED ORGANISM; D70.9 - NEUTROPENIA, UNSPECIFIED (4) Altered mental status Code(s): R41.82 - ALTERED MENTAL STATUS, UNSPECIFIED (5) Dehydration Code(s): E86.0 - DEHYDRATION (6) Hyperbilirubinemia Code(s): E80.6 - OTHER DISORDERS OF BILIRUBIN METABOLISM Assessment/Plan ASSESS: This is a 52 y/o man w/ DLBCL on Chemo c/b AA (last chemo in February R- CHOP + itMTX; d/c'ed 2/2 thrombocytopenia) pt of Dr. Santoro & Dr. Zeng ( [facility] Heme/Onc), who presents now w/ stewart-cytopneia & AMS m/l multifactorial : neutropenic infection, Chemo, bone marrow suppression, AA crisis, paraneoplastic, dz infiltration all or any combo there of +/-. Of note: The ED generated a plan to Transfer this pt to [facility] from this ICU However I am unable to Transfer this pt & I have no medical records for this complex patient. PLAN: -Stewart Clxr -Supp FiO2 for an SpO2 > 92% -Nebs -IS -Vanc -Zo -Staci -Immediate ID Consult -Trend LA -Low Threshold to establish CVC -PRBCs for a Hgb of 7.0 -Plts for a goal of > 40 -Prepare for Renal Fail -Stict I's & O's -Trend BUN/Cr -Replete e-lytes prn -Prepare for MSOF -Initiate full Heme/Onc Consult now -Prepare for Lengthy stay in this ICU -Call [facility] & retrieve as much data as possible (Micro, counts, ABx Hx) -Trend LFTs -Lipase -GI Consult -SCDs -No AC -PPI -DNR/DNI -Transfer to Hospice -Meet w/ Family Thank you for this Interesting Consult C[facility], [facility] ICU PULM/CCM [id number] Critical Care Total Critical Care Time (in minutes): 38 Critical Care Statement: The care of this patient involved high complexity decision making to prevent further life threatening deterioration of the patient 's condition and/or to evaluate & treat vital organ system(s) failure or risk of failure.
[2018-04-30] MEDS ORDERED: PIPERACILLIN/TAZOB 3.375 GM 3.375 GM in DEXTROSE 5%-WATER - 50 ML IVPB ONE (08:45)
[2018-04-30] MEDS ORDERED: DEXTROSE 5%-WATER - 50 ML IVPB ONE ×2 (09:04→21:03)
[2018-04-30] MEDS ORDERED: PIPERACILLIN/TAZOBACTAM 3.375 GM VIAL IVPB ONE ×2 (09:04→21:02)
--- NOTE | 2018-04-30 09:06 | PN ---
Progress Note (short form) - Note Progress Note: Subjective: unable to obtain hx. per RN , he has been very restless and confused. last night. received 3 units of RBC and one unit of Plt . he is starting the 4th unit . Objective: Vital Signs: Last Vital Signs Temp Pulse Resp BP Pulse Ox 97.4 F L 103 H 12 92/63 100 04/30/18 05:00 04/30/18 05:00 04/30/18 05:00 04/30/18 05:00 04/29/18 19:57 Laboratory Results - last 24 hr 04/29/18 04/29/18 04/29/18 15:25 15:30 15:30 WBC 3.0 L RBC 0.67 L Hgb 2.2 L* Hct 6.0 L MCV 88.5 MCH 32.6 MCHC 36.9 H RDW 12.9 Plt Count 8 L* MPV 10.0 Absolute Neuts (auto) 1.3 L Neutrophils % 43.9 Neutrophils % (Manual) Band Neutrophils % Lymphocytes % 38.7 Lymphocytes % (Manual) Monocytes % 15.2 H Monocytes % (Manual) Eosinophils % 1.7 Eosinophils % (Manual) Basophils % 0.5 Basophils % (Manual) Myelocytes % (Man) Promyelocytes % (Man) Blast Cells % (Manual) Nucleated RBC % 0 Metamyelocytes Hypochromia Platelet Estimate Polychromasia Poikilocytosis Anisocytosis Microcytosis Macrocytosis Spherocytes PT with INR Cancelled INR Cancelled PTT (Actin FS) Cancelled VBG pH POC VBG pCO2 POC VBG pO2 VBG HCO3 VBG O2 Sat (Emliy) VBG Base Excess Sodium Potassium Chloride Carbon Dioxide Anion Gap BUN Creatinine Creat Clearance w eGFR Random Glucose Lactic Acid Calcium Total Bilirubin AST ALT Alkaline Phosphatase Ammonia Troponin I Total Protein Albumin Urine Color Yellow Urine Appearance Clear Urine pH 6.0 Ur Specific [place] 1.011 Urine Protein Negative Urine Glucose (UA) Negative Urine Ketones Negative Urine Blood Negative Urine Nitrite Negative Urine Bilirubin Negative Urine Urobilinogen 0.2 Ur Leukocyte Esterase Trace Urine WBC (Auto) 3 Urine RBC (Auto) 3 Urine Casts (Auto) 6 U Epithel Cells (Auto) 1.9 Urine Bacteria (Auto) 1.512 Anti-A Titer Blood Type Antibody Screen Crossmatch 04/29/18 04/29/18 04/29/18 15:30 15:30 15:30 WBC RBC Hgb Hct MCV MCH MCHC RDW Plt Count MPV Absolute Neuts (auto) Neutrophils % Neutrophils % (Manual) Band Neutrophils % Lymphocytes % Lymphocytes % (Manual) Monocytes % Monocytes % (Manual) Eosinophils % Eosinophils % (Manual) Basophils % Basophils % (Manual) Myelocytes % (Man) Promyelocytes % (Man) Blast Cells % (Manual) Nucleated RBC % Metamyelocytes Hypochromia Platelet Estimate Polychromasia Poikilocytosis Anisocytosis Microcytosis Macrocytosis Spherocytes PT with INR INR PTT (Actin FS) VBG pH 7.24 L POC VBG pCO2 38.2 L POC VBG pO2 48.7 H VBG HCO3 15.9 L VBG O2 Sat (Emily) 71.4 VBG Base Excess -10.0 L Sodium 136 Potassium 4.8 Chloride 105 Carbon Dioxide 14 L Anion Gap 17 H BUN 13 Creatinine 1.2 Creat Clearance w eGFR 63.58 Random Glucose 112 H Lactic Acid Calcium 8.4 L Total Bilirubin 1.1 H AST 34 ALT 59 Alkaline Phosphatase 214 H Ammonia 51.50 H Troponin I < 0.02 Total Protein 6.5 Albumin 3.3 L Urine Color Urine Appearance Urine pH Ur Specific [place] Urine Protein Urine Glucose (UA) Urine Ketones Urine Blood Urine Nitrite Urine Bilirubin Urine Urobilinogen Ur Leukocyte Esterase Urine WBC (Auto) Urine RBC (Auto) Urine Casts (Auto) U Epithel Cells (Auto) Urine Bacteria (Auto) Anti-A Titer Blood Type Antibody Screen Crossmatch 04/29/18 04/29/18 04/29/18 15:30 16:24 17:15 WBC RBC Hgb Hct MCV MCH MCHC RDW Plt Count MPV Absolute Neuts (auto) Neutrophils % Neutrophils % (Manual) Band Neutrophils % Lymphocytes % Lymphocytes % (Manual) Monocytes % Monocytes % (Manual) Eosinophils % Eosinophils % (Manual) Basophils % Basophils % (Manual) Myelocytes % (Man) Promyelocytes % (Man) Blast Cells % (Manual) Nucleated RBC % Metamyelocytes Hypochromia Platelet Estimate Polychromasia Poikilocytosis Anisocytosis Microcytosis Macrocytosis Spherocytes PT with INR INR PTT (Actin FS) VBG pH POC VBG pCO2 POC VBG pO2 VBG HCO3 VBG O2 Sat (Emily) VBG Base Excess Sodium Potassium Chloride Carbon Dioxide Anion Gap BUN Creatinine Creat Clearance w eGFR Random Glucose Lactic Acid 9.4 H* 6.2 H* Calcium Total Bilirubin AST ALT Alkaline Phosphatase Ammonia Troponin I Total Protein Albumin Urine Color Urine Appearance Urine pH Ur Specific [place] Urine Protein Urine Glucose (UA) Urine Ketones Urine Blood Urine Nitrite Urine Bilirubin Urine Urobilinogen Ur Leukocyte Esterase Urine WBC (Auto) Urine RBC (Auto) Urine Casts (Auto) U Epithel Cells (Auto) Urine Bacteria (Auto) Anti-A Titer Blood Type A POSITIVE Antibody Screen Negative Crossmatch See Detail 04/29/18 04/29/18 04/29/18 17:15 17:15 17:32 WBC RBC Hgb Hct MCV MCH MCHC RDW Plt Count MPV Absolute Neuts (auto) Neutrophils % Neutrophils % (Manual) Band Neutrophils % Lymphocytes % Lymphocytes % (Manual) Monocytes % Monocytes % (Manual) Eosinophils % Eosinophils % (Manual) Basophils % Basophils % (Manual) Myelocytes % (Man) Promyelocytes % (Man) Blast Cells % (Manual) Nucleated RBC % Metamyelocytes Hypochromia Platelet Estimate Polychromasia Poikilocytosis Anisocytosis Microcytosis Macrocytosis Spherocytes PT with INR 14.20 H INR 1.20 H PTT (Actin FS) 26.0 VBG pH POC VBG pCO2 POC VBG pO2 VBG HCO3 VBG O2 Sat (Emily) VBG Base Excess Sodium Potassium Chloride Carbon Dioxide Anion Gap BUN Creatinine Creat Clearance w eGFR Random Glucose Lactic Acid Calcium Total Bilirubin AST ALT Alkaline Phosphatase Ammonia Troponin I Total Protein Albumin Urine Color Urine Appearance Urine pH Ur Specific [place] Urine Protein Urine Glucose (UA) Urine Ketones Urine Blood Urine Nitrite Urine Bilirubin Urine Urobilinogen Ur Leukocyte Esterase Urine WBC (Auto) Urine RBC (Auto) Urine Casts (Auto) U Epithel Cells (Auto) Urine Bacteria (Auto) Anti-A Titer Cancelled Blood Type Cancelled A POSITIVE Antibody Screen Cancelled Crossmatch 04/30/18 04/30/18 02:24 02:24 WBC 1.3 L* RBC 1.35 L Hgb 3.9 L* Hct 10.8 L MCV 80.3 D MCH 29.2 D MCHC 36.4 H RDW 14.4 D Plt Count 47 L D MPV 8.5 D Absolute Neuts (auto) 0.8 L Neutrophils % 59.1 D Neutrophils % (Manual) 60.6 Band Neutrophils % 1.0 Lymphocytes % 19.5 D Lymphocytes % (Manual) 22.2 Monocytes % 19.3 H Monocytes % (Manual) 9 Eosinophils % 1.9 Eosinophils % (Manual) 0.0 Basophils % 0.2 Basophils % (Manual) 0.0 Myelocytes % (Man) 1 Promyelocytes % (Man) 0 Blast Cells % (Manual) 5 H Nucleated RBC % 0 Metamyelocytes 1 Hypochromia 1+ Platelet Estimate Decreased Polychromasia 0 Poikilocytosis 0 Anisocytosis 2+ Microcytosis 2+ Macrocytosis 1+ Spherocytes 1+ PT with INR INR PTT (Actin FS) VBG pH POC VBG pCO2 POC VBG pO2 VBG HCO3 VBG O2 Sat (Emily) VBG Base Excess Sodium Potassium Chloride Carbon Dioxide Anion Gap BUN Creatinine Creat Clearance w eGFR Random Glucose Lactic Acid 1.0 Calcium Total Bilirubin AST ALT Alkaline Phosphatase Ammonia Troponin I Total Protein Albumin Urine Color Urine Appearance Urine pH Ur Specific [place] Urine Protein Urine Glucose (UA) Urine Ketones Urine Blood Urine Nitrite Urine Bilirubin Urine Urobilinogen Ur Leukocyte Esterase Urine WBC (Auto) Urine RBC (Auto) Urine Casts (Auto) U Epithel Cells (Auto) Urine Bacteria (Auto) Anti-A Titer Blood Type Antibody Screen Crossmatch Physical Exam: NAD, comfortable in bed. arousable to verbal command, but answers OK to all questions. In [place] , per [place] speaking RN, he does not make sense. HEENT: dry lips, no thrush in mouth , round equal pupils, reactive to light, no facial droop, no JVD. CV: RRR, no mRG , no JVD Lungs: CTAB anteriorly . no wheezes or crackles Ext : no edema or erythema. no signs of fungal infection in interdigital webs Imaging: Head CT image reviewed: no bleed seen . final report pending cxray image and report was reviewed Assessment/Plan: Unfortunate 52 y/o man with h/o B cell lymphoma, with recent admission to [facility] AMS, SAH, and hematemesis. he presented yesterday as he was found with AMS by his niece. He was found to have aplastic crisis. 1- Aplastic crisis: likely due to progression of his disease , but can't r/o an acute infection/sepsis causing the crisis - s/p 3 units of RBCs, now getting 4th unit - s/p 1 unit of PLt . count improved to 48k - neutropenic . - will repeat counts after transfusion . - neutropenic precautions - heme consult placed - follow blood cx - give another dose of vanc and zosyn now. ID to approve 2- AMS: due to ? infection, vs severe anemia, vs stroke ( per history had neglect of his R side) . unlikely hepatic encephalopathy - hydrate and transfuse blood products and reassess - CT with no big stroke or bleed. - will consider MRI when more stable. - even if he had a stroke he is not a candidate for any intervention or anti- plt therapy. - if needed neuro can be involved 3- Elevated Alk phos, and ammonia: disease process VS other - US of liver pending - GGT pending monitor Dispo: spoke to Dr. Del Rosario from [facility], who accepted patient for a transfer to heme/onc service. Beds are not available though. will be contacted later. paperwork was filled. message left for his niece . awaiting call back Visit type - Emergency Visit Emergency Visit: Yes ED Registration Date: 04/29/18 Care time: The patient presented to the Emergency Department on the above date and was hospitalized for further evaluation of their emergent condition. - New Patient This patient is new to me today: Yes Date on this admission: 04/30/18 - Critical Care Critical Care patient: Yes Total Critical Care Time (in minutes): 45 Critical Care Statement: The care of this patient involved high complexity decision making to prevent further life threatening deterioration of the patient 's condition and/or to evaluate & treat vital organ system(s) failure or risk of failure.
[2018-04-30] MEDS ORDERED: CALCIUM GLUCONATE 10% - 1,000 MG/10 ML VIAL IVPUSH ONE (09:26)
[2018-04-30] MEDS: MUPIROCIN 2% TOPICAL OINTMENT FOR DECOLONIZATION NS SCH ×2 (09:39→21:13)
[2018-04-30] MEDS ORDERED: VANCOMYCIN 750 MG in DEXTROSE 5%-WATER - 250 ML IVPB ONE ×2 (10:00→22:00)
[2018-04-30] MEDS: CALCIUM GLUCONATE 10% - 1,000 MG/10 ML VIAL IVPB SCH ×2 (11:02→12:27)
[2018-04-30] MEDS: valACYclovir HCL 500 MG TABLET (FP) PO SCH (14:03)
[2018-04-30 14:23] LABS: BASO % 0.2 % (0-2.0); HEMATOCRIT 20.3 % (35.4-49); HEMOGLOBIN 7.2 GM/dL (11.7-16.9); LYMPH % 21.4 % (8-40); MCH 28.4 pg (25.7-33.7); MCHC 35.4 g/dl (32.0-35.9); MEAN CELL VOLUME 80.2 fl (80-96); MEAN PLT VOLUME 8.6 fl (7.5-11.1); MONO % 9.5 % (3.8-10.2); NEUT % 64.9 % (42.8-82.8); PLATELET COUNT 44 K/MM3 (134-434); RBC 2.53 M/mm3 (4.00-5.60); RDW 16.1 % (11.9-15.9)
[2018-04-30 14:28] LABS: ALBUMIN 3.1 g/dl (3.4-5.0); ALK PHOS 189 U/L (45-117); ANION GAP 8 MMOL/L (8-16); BILIRUBIN,DIRECT 0.9 mg/dL (0.0-0.2); BILIRUBIN,TOTAL 2.2 mg/dL (0.2-1); BLOOD UREA NITROGEN 12 mg/dL (7-18); CALCIUM 8.7 mg/dL (8.5-10.1); CHLORIDE 110 mmol/L (98-107); CHOLESTEROL 148 mg/dL (50-200); CO2 21 mmol/L (21-32); CREATININE 0.9 mg/dL (0.55-1.3); GLUCOSE,RANDOM 74 mg/dL (74-106); HDL CHOLESTEROL 45 mg/dL (40-60); MAGNESIUM 1.5 mg/dL (1.8-2.4); PHOSPHOROUS 4.2 mg/dL (2.5-4.9); SGOT/AST 38 U/L (15-37); SGPT/ALT 60 U/L (13-61); SODIUM 138 mmol/L (136-145); TRIGLYCERIDES 209 mg/dL (0-150)
[2018-04-30] MEDS: LORazepam 2 MG/ML SDV VIAL IVPUSH PRN ×2 (14:51→22:52)
--- NOTE | 2018-04-30 14:55 | CON.ID ---
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 Patient had been recently admitted to [facility] 01/31/18 -02/11/2018 for SOB w/ hematemesis, multiple falls, and AMS and was found to be in aplastic crisis with SAH, distributive shock, and lactic acidosis. Was treated in NSICU for IV ABX and blood products. R-ICE started 02/08/18. Patient discharged with dx of paraneoplastic vs. disease infiltration for outpatient f/ u. Niece who is with him reports he had been improving since then however yesterday started "talking to the air" however responding appropriately. Today they noticed him not answering questions appropriately at all. the above was his history on admission patient was admitted to icu and received one 6 pack of patelets,and 4 units of prbc patient currently lethargic,and looks more septic - History Source History Provided By: Medical Record Limitations to Obtaining History: Clinical Condition - Past Medical History Infectious Disease: Yes: Other (Neutropenic) - Alcohol/Substance Use Hx Alcohol Use: No - Smoking History Smoking history: Never smoked - Social History Usual Living Arrangement: Other (w/ Family) ADL: Family Assistance History of Recent Travel: No Home Medications - Allergies Allergies/Adverse Reactions: Allergies Allergy/AdvReac Type Severity Reaction Status Date / Time No Known Allergies Allergy Verified 04/29/18 15:04 - Home Medications Home Medications: Ambulatory Orders Eltrombopag Olamine [Promacta] 50 mg PO DAILY 04/29/18 Filgrastim [Neupogen] 300 mcg IJ ASDIR 04/29/18 Filgrastim-Sndz [Zarxio] 300 mcg IJ ASDIR 04/29/18 Levofloxacin [Levaquin] 500 mg PO ASDIR 04/29/18 Posaconazole [Noxafil] 100 mg PO ASDIR 04/29/18 Valacyclovir HCl [Valtrex -] 1,000 mg PO ASDIR 04/29/18 Review of Systems Unable to obtain ROS, reason: unable to obtain Physical Exam Vital Signs: Vital Signs Temperature 97.4 F L 04/30/18 05:00 Pulse Rate 95 H 04/30/18 13:00 Respiratory Rate 15 04/30/18 13:00 Blood Pressure 91/60 04/30/18 13:00 O2 Sat by Pulse Oximetry (%) 100 04/30/18 09:00 Constitutional: Yes: Mild Distress, Thin, Other (barely responsive,thin,) Neck: Yes: Supple Cardiovascular: Yes: Regular Rate and Rhythm Respiratory: Yes: Regular, CTA Bilaterally, On Nasal O2 Gastrointestinal: Yes: Normal Bowel Sounds, Soft Musculoskeletal: Yes: WNL Extremities: Yes: WNL Neurological: Yes: Lethargy Psychiatric: Yes: Other Labs: CBC, BMP 04/30/18 13:45 04/30/18 13:45 Imaging - Results Chest X-ray: Report Reviewed, Image Reviewed Cat Scan: Report Reviewed, Image Reviewed Ultrasound: Report Reviewed, Image Reviewed Assessment/Plan 52 yo M w/ pmhx of 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 Problem List - Problem (1) Aplastic anemia (2) B-cell lymphoma 3 sepsis 4 fever plan continue broad spectrum abx await for all blood cx close watch on the condition transfusion as needed await for all cx reports rest as per icu monitor h and h cc 45 min
--- NOTE | 2018-04-30 17:09 | PN ---
Progress Note (short form) - Note Progress Note: Patient seen and examined
--- NOTE | 2018-04-30 17:10 | CONSULT ---
Consult - text type - Consultation Consultation Note: Mr. 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 Recently admitted to [facility] for polymicrobial bacteremia/ cellulitis/ MRSA/ sepsis. Was on dialysis. Palliative care was being discussed. He was brought in by his niece for altered mental status Allergies/Adverse Reactions: Allergies Allergy/AdvReac Type Severity Reaction Status Date / Time No Known Allergies Allergy Verified 04/29/18 15:04 Home Medications: Ambulatory Orders Eltrombopag Olamine [Promacta] 50 mg PO DAILY 04/29/18 Filgrastim [Neupogen] 300 mcg IJ ASDIR 04/29/18 Filgrastim-Sndz [Zarxio] 300 mcg IJ ASDIR 04/29/18 Levofloxacin [Levaquin] 500 mg PO ASDIR 04/29/18 Posaconazole [Noxafil] 100 mg PO ASDIR 04/29/18 Valacyclovir HCl [Valtrex -] 1,000 mg PO ASDIR 04/29/18 Last Vital Signs Temp Pulse Resp BP Pulse Ox 97.4 F L 100 H 15 98/74 100 04/30/18 05:00 04/30/18 15:00 04/30/18 15:00 04/30/18 15:00 04/30/18 09:00 Cor: RSR, No murmurs, No gallops Lungs: Clear to P&A Abd: Soft, Normal bowel sounds, No organomegaly Ext:No significant edema Labs/Meds reviewed A/P Mr. 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 Recently admitted to [facility] for polymicrobial bacteremia/ cellulitis/ MRSA/ sepsis. Was on dialysis. Palliative care was being discussed. He was brought in by his niece for altered mental status CT head negative for bleed Severe pancytopenia Hgb 3 s/p PRBCs s/p platelet transfusion Broad spectrum antibiotics
[2018-04-30 17:14] LABS: ANISOCYTOSIS 0; MACROCYTOSIS 0; PLATELET ESTIMATE DECREASED
[2018-04-30 20:10] LABS: HEMATOCRIT 20.7 % (35.4-49); HEMOGLOBIN 7.4 GM/dL (11.7-16.9); MCH 28.1 pg (25.7-33.7); MCHC 35.6 g/dl (32.0-35.9); MEAN PLT VOLUME 7.8 fl (7.5-11.1); PLATELET COUNT 40 K/MM3 (134-434); RBC 2.62 M/mm3 (4.00-5.60); RDW 15.8 % (11.9-15.9)
[2018-04-30 20:19] LABS: WHITE BLOOD COUNT 1.5 K/mm3 (4.0-10.0)
[2018-04-30] MEDS: CHLORHEXIDINE GLUCONATE 4% CLEANSER FOR DECOLONIZATION TP SCH (21:13)
[2018-04-30] MEDS: PIPERACILLIN/TAZOB 3.375 GM 3.375 GM in DEXTROSE 5%-WATER - 50 ML IVPB SCH (21:13)
--- NOTE | 2018-04-30 23:42 | PN ---
Progress Note (short form) - Note Progress Note: Patient's niece Ms. Murcia (HCP) at bed side this evening. Requesting to call her at [phone] if there are any changes in patient's medical condition. Discussed about code status, patient is a FULL CODE
--- NOTE | 2018-04-30 23:50 | EKG ---
Test Reason : Blood Pressure : / mmHG Vent. Rate : 101 BPM Atrial Rate : 101 BPM P-R Int : 152 ms QRS Dur : 086 ms QT Int : 356 ms P-R-T Axes : 066 -08 027 degrees QTc Int : 461 ms SINUS TACHYCARDIA LOW VOLTAGE QRS BORDERLINE ECG NO PREVIOUS ECGS AVAILABLE Confirmed by ALIYA RAMOS MD ([id number]) on 04/30/2018 11:50:37 PM Referred By: Confirmed By:ALIYA RAMOS MD
[2018-05-01] MEDS: SODIUM CHLORIDE 1,000 ML IV SCH (06:40)
[2018-05-01 06:44] LABS: ALBUMIN 2.6 g/dl (3.4-5.0); ALK PHOS 157 U/L (45-117); ANION GAP 8 MMOL/L (8-16); BILIRUBIN,TOTAL 1.4 mg/dL (0.2-1); BLOOD UREA NITROGEN 10 mg/dL (7-18); CALCIUM 7.8 mg/dL (8.5-10.1); CHLORIDE 113 mmol/L (98-107); CO2 19 mmol/L (21-32); CREATININE 0.8 mg/dL (0.55-1.3); GLUCOSE,RANDOM 78 mg/dL (74-106); MAGNESIUM 1.4 mg/dL (1.8-2.4); PHOSPHOROUS 4.6 mg/dL (2.5-4.9); POTASSIUM 3.3 mmol/L (3.5-5.1); SGOT/AST 26 U/L (15-37); SGPT/ALT 56 U/L (13-61); SODIUM 140 mmol/L (136-145); TOT PROT 5.1 g/dl (6.4-8.2)
[2018-05-01 06:50] LABS: BASO % 0.3 % (0-2.0); EOS % 4.8 % (0-4.5); HEMATOCRIT 17.5 % (35.4-49); LYMPH % 20.4 % (8-40); MCH 28.8 pg (25.7-33.7); MCHC 36.9 g/dl (32.0-35.9); MONO % 18.4 % (3.8-10.2); NEUT % 56.1 % (42.8-82.8); PLATELET COUNT 38 K/MM3 (134-434); RBC 2.25 M/mm3 (4.00-5.60)
[2018-05-01 07:46] LABS: HEMOGLOBIN 6.5 GM/dL (11.7-16.9); WHITE BLOOD COUNT 1.1 K/mm3 (4.0-10.0)
--- NOTE | 2018-05-01 07:50 | PN ---
Physical Exam: SUBJECTIVE: Patient seen and examined at bedside. Pt seen very lethargic but arousable to voice. Scientific Glass Blower hands but does not move feet. Does not follow commands very well and does not verbally communicate when asked questions. OBJECTIVE: Vital Signs Period Temp Pulse Resp BP Sys/Borjas Pulse Ox Last 24 Hr 97.7 F-98.9 F 86-100 12-17 85-110/60-81 100-100 GENERAL: Lethargic, arousable to verbal stimuli. Unable to follow commands or converse. HEENT: AT/NC. EOMI. MMM. NECK: Trachea midline, full range of motion, supple. LUNGS: CTA B/L. No wheezes noted. HEART: RRR. Normal S1, S2. No murmurs noted. ABDOMEN: Soft, NT/ND. normoactive bowel sounds. EXTREMITIES: 2+ pulses, warm, well-perfused, no edema. NEUROLOGICAL: Unable to assess. CBC, BMP 05/01/18 05:30 05/01/18 05:30 Active Medications Chlorhexidine Gluconate (Hibiclens For Decolonization -) 1 applic TP HS JAYLENE Last Admin: 04/30/18 21:13 Dose: 1 applic Sodium Chloride (Normal Saline -) 1,000 mls @ 150 mls/hr IV ASDIR JAYLENE Last Admin: 05/01/18 06:40 Dose: 150 mls/hr Piperacillin Sod/Tazobactam (Sod 3.375 gm/ Dextrose) 50 mls @ 100 mls/hr IVPB BID JAYLENE; Protocol Last Admin: 04/30/18 21:13 Dose: 100 mls/hr Vancomycin HCl 1,500 mg/ (Dextrose) 500 mls @ 250 mls/hr IVPB Q24H JAYLENE; Protocol Lorazepam (Ativan Injection -) 1 mg IVPUSH Q3H PRN PRN Reason: ANXIETY Last Admin: 04/30/18 22:52 Dose: 1 mg Mupirocin (Bactroban Ointment (For Decolonization) -) 1 applic NS BID JAYLENE Stop: 05/04/18 21:59 Last Admin: 04/30/18 21:13 Dose: 1 applic Non-Formulary Medication (Posaconazole [Noxafil]) 100 mg PO ASDIR JAYLENE Valacyclovir HCl (Valtrex -) 1,000 mg PO DAILY JAYLENE Last Admin: 04/30/18 14:03 Dose: Not Given IMAGING: * CXR (04/29/18): No acute chest pathology. * Head CT (04/29/18): No definite CT evidence of acute IC pathology. Possible minimal to mild periventricular chronic microvascular changes. Small amt of nonspecific fluid seen within L mastoid air cells. B/l nasal fractures probably chronic. * Multiple GB calculi noted w/ resultant partial obstruction of posterior GB wall and fundus. No obvious GB overdistension. CBD measuring 0.3mm in diameter. 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 NEURO -Lethargic, but arousable to verbal stimuli -Previously on Ativan 1 mg Q3H IVP for agitation; will hold for now and re- assess mental status -Neuro checks PULM -Aspiration precautions -O2 NC 2L -monitor O2 sat HEME #Aplastic crisis likely 2/2 chemotherapy -s/p 4U pRBC, 1U pl upon admission -H/H today 6.5/17.5; Abs neuts 0.6 -1U pRBC ordered today; recheck CBC this evening. Goal Hgb >7, transfuse PRN -Neutropenic precautions #Diffuse Large B Cell Lymphoma - hold chemotherapy agents ID -Per ID, cont Vanc 1500 mg/Zosyn 3.375 gm for broad spectrum coverage -BCx (04/29) neg x24h; follow up final results -UCx neg PROPHYLAXIS -Hold AC FEN -NS @ 150 -repletes lytes PRN -NPO Dispo -Currently being monitored in the ICU for transfusional support -Called [facility] this AM, accepted for transfer to oncology floor for continuation of care -Will downgrade from ICU as patient no longer needs ICU level of care - Visit type - Emergency Visit Emergency Visit: Yes ED Registration Date: 04/29/18 Care time: The patient presented to the Emergency Department on the above date and was hospitalized for further evaluation of their emergent condition. - New Patient This patient is new to me today: Yes Date on this admission: 05/01/18 - Critical Care Critical Care patient: Yes Total Critical Care Time (in minutes): 40 Critical Care Statement: The care of this patient involved high complexity decision making to prevent further life threatening deterioration of the patient 's condition and/or to evaluate & treat vital organ system(s) failure or risk of failure.
[2018-05-01] MEDS ORDERED: MAGNESIUM OXIDE 400 MG TABLET (FP) PO ONE (08:18)
[2018-05-01] MEDS ORDERED: MAGNESIUM SULF 50% (8.12 MEQ/2 ML-1 GM VIAL) IVPB ONE (09:39)
[2018-05-01] MEDS ORDERED: PIPERACILLIN/TAZOBACTAM 3.375 GM VIAL IVPB ONE ×2 (09:42→21:19)
[2018-05-01] MEDS ORDERED: PT OWN MED DRAWER 7, Y5N ONE (09:42)
[2018-05-01] MEDS ORDERED: DEXTROSE 5%-WATER - 50 ML IVPB ONE ×2 (09:43→21:19)
[2018-05-01] MEDS: MUPIROCIN 2% TOPICAL OINTMENT FOR DECOLONIZATION NS SCH ×2 (09:58→21:25)
[2018-05-01] MEDS: PIPERACILLIN/TAZOB 3.375 GM 3.375 GM in DEXTROSE 5%-WATER - 50 ML IVPB SCH ×2 (09:59→21:26)
[2018-05-01] MEDS: valACYclovir HCL 500 MG TABLET (FP) PO SCH (09:59)
--- NOTE | 2018-05-01 10:00 | PN ---
Physical Exam: HEME/ONC Progress Note SUBJECTIVE: Patient seen and examined at bedside. Patient is lethargic but awakens to touch and voice. Is able to nod yes and shake head no to simple questions but is not speaking and is unable to answer any complex questions. Denies generalized pain but nods head "yes" when asked if patient has pain in abdomen. Per nurse, patient has axillary temp of 99.4 and tachycardic. OBJECTIVE: Vital Signs Period Temp Pulse Resp BP Sys/Borjas Pulse Ox Last 24 Hr 97.7 F-98.9 F 90-100 13-17 91-110/60-81 100 GENERAL: The patient is awake but not alert or oriented HEAD: Normal with no signs of trauma. EYES: Pupils equal, slightly constricted and sluggish to react to light, unable to assess extraocular eye muscles, no scleral icterus noted on exam52 ye ENT: poor dentition, patient is not opening his mouth wide enough to visualize pharynx, no overt blood noted in mouth NECK: Trachea midline, full range of motion, supple, no masses palpated LUNGS: Breath sounds equal but coarse, no crackles noted bilaterally HEART: tachycardic without murmur ABDOMEN: Soft, nontender, nondistended, bowel sounds present, no masses palpated EXTREMITIES: 2+ pulses, warm, well-perfused, no edema. NEUROLOGICAL: unable to assess neurologic status due to mental status, innovation analyst strength intact SKIN: Warm, dry, normal turgor, no rashes or lesions noted Laboratory Results - last 24 hr 04/29/18 04/30/18 04/30/18 16:24 13:45 13:45 WBC 1.0 L* RBC 2.53 L Hgb 7.2 L Hct 20.3 L D MCV 80.2 MCH 28.4 MCHC 35.4 RDW 16.1 H Plt Count 44 L MPV 8.6 Absolute Neuts (auto) 0.6 L Neutrophils % 64.9 Neutrophils % (Manual) 54.7 Band Neutrophils % 4.1 Lymphocytes % 21.4 Lymphocytes % (Manual) 33.0 D Monocytes % 9.5 Monocytes % (Manual) 4 Eosinophils % 4.0 D Eosinophils % (Manual) 3.1 D Basophils % 0.2 Basophils % (Manual) 0.0 Myelocytes % (Man) 1 Promyelocytes % (Man) 0 Blast Cells % (Manual) 0 D Nucleated RBC % 1 H Metamyelocytes 0 D Hypochromia 0 Platelet Estimate Decreased Polychromasia 0 Poikilocytosis 0 Anisocytosis 0 Microcytosis 0 Macrocytosis 0 Sodium 138 Potassium 4.0 Chloride 110 H Carbon Dioxide 21 Anion Gap 8 BUN 12 Creatinine 0.9 Creat Clearance w eGFR 88.61 Random Glucose 74 Lactic Acid Calcium 8.7 Phosphorus 4.2 Magnesium 1.5 L Total Bilirubin 2.2 H Direct Bilirubin 0.9 H AST 38 H ALT 60 Alkaline Phosphatase 189 H Total Protein 6.0 L Albumin 3.1 L Triglycerides 209 H Cholesterol 148 Total LDL Cholesterol 76 HDL Cholesterol 45 Crossmatch See Detail 04/30/18 04/30/18 05/01/18 13:45 19:55 05:30 WBC 1.5 L* 1.1 L* RBC 2.62 L 2.25 L Hgb 7.4 L 6.5 L* Hct 20.7 L 17.5 L D MCV 79.0 L 78.0 L MCH 28.1 28.8 MCHC 35.6 36.9 H RDW 15.8 16.0 H Plt Count 40 L 38 L MPV 7.8 9.0 D Absolute Neuts (auto) 0.6 L Neutrophils % 56.1 Neutrophils % (Manual) Band Neutrophils % Lymphocytes % 20.4 Lymphocytes % (Manual) Monocytes % 18.4 H D Monocytes % (Manual) Eosinophils % 4.8 H Eosinophils % (Manual) Basophils % 0.3 Basophils % (Manual) Myelocytes % (Man) Promyelocytes % (Man) Blast Cells % (Manual) Nucleated RBC % 0 Metamyelocytes Hypochromia Platelet Estimate Polychromasia Poikilocytosis Anisocytosis Microcytosis Macrocytosis Sodium Potassium Chloride Carbon Dioxide Anion Gap BUN Creatinine Creat Clearance w eGFR Random Glucose Lactic Acid 1.3 Calcium Phosphorus Magnesium Total Bilirubin Direct Bilirubin AST ALT Alkaline Phosphatase Total Protein Albumin Triglycerides Cholesterol Total LDL Cholesterol HDL Cholesterol Crossmatch 05/01/18 05:30 WBC RBC Hgb Hct MCV MCH MCHC RDW Plt Count MPV Absolute Neuts (auto) Neutrophils % Neutrophils % (Manual) Band Neutrophils % Lymphocytes % Lymphocytes % (Manual) Monocytes % Monocytes % (Manual) Eosinophils % Eosinophils % (Manual) Basophils % Basophils % (Manual) Myelocytes % (Man) Promyelocytes % (Man) Blast Cells % (Manual) Nucleated RBC % Metamyelocytes Hypochromia Platelet Estimate Polychromasia Poikilocytosis Anisocytosis Microcytosis Macrocytosis Sodium 140 Potassium 3.3 L Chloride 113 H Carbon Dioxide 19 L Anion Gap 8 BUN 10 Creatinine 0.8 Creat Clearance w eGFR 101.51 Random Glucose 78 Lactic Acid Calcium 7.8 L Phosphorus 4.6 Magnesium 1.4 L Total Bilirubin 1.4 H Direct Bilirubin AST 26 ALT 56 Alkaline Phosphatase 157 H Total Protein 5.1 L Albumin 2.6 L Triglycerides Cholesterol Total LDL Cholesterol HDL Cholesterol Crossmatch Active Medications Generic Name Dose Route Start Last Admin Trade Name Freq PRN Reason Stop Dose Admin Chlorhexidine Gluconate 1 applic 04/29/18 22:00 04/30/18 21:13 Hibiclens For Decolonization - TP 1 applic HS JAYLENE Administration Sodium Chloride 1,000 mls @ 150 mls/hr 04/30/18 01:00 05/01/18 06:40 Normal Saline - IV 150 mls/hr ASDIR JAYLENE Administration Piperacillin Sod/Tazobactam 50 mls @ 100 mls/hr 04/30/18 22:00 04/30/18 21:13 Sod 3.375 gm/ Dextrose IVPB 100 mls/hr BID JAYLENE Administration Protocol Vancomycin HCl 1,500 mg/ 500 mls @ 250 mls/hr 05/01/18 10:00 Dextrose IVPB Q24H JAYLENE Protocol Potassium Chloride 10 meq in 100 mls @ 100 mls/hr 05/01/18 08:30 Potassium Chloride 10 Meq Premix Ivpb - IVPB 05/01/18 11:29 Q60M JAYLENE Lorazepam 1 mg 04/29/18 23:25 04/30/18 22:52 Ativan Injection - IVPUSH 1 mg Q3H PRN Administration ANXIETY Mupirocin 1 applic 04/29/18 22:00 04/30/18 21:13 Bactroban Ointment (For Decolonization) - NS 05/04/18 21:59 1 applic BID JAYLENE Administration Non-Formulary Medication 100 mg 04/29/18 23:30 Posaconazole [Noxafil] PO ASDIR JAYLENE Valacyclovir HCl 1,000 mg 04/30/18 10:00 04/30/18 14:03 Valtrex - PO Not Given DAILY JAYLENE ASSESSMENT/PLAN: DRAFT 52 year old male with a hx of 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 (most recently 02/15) with aplastic crisis presented for altered mental status, multiple falls Aplastic crisis: possibly secondary to bone marrow destruction from chemotherapy , absolute neutrophil count 600 = moderate neutropenia compounded with overlying infection -neutropenic precautions -s/p 4U PRBC and 1 platelets -continue to transfuse to hgb goal of 7 -continue vanc/zosyn/valtrex Altered Mental Status: possibly 2/2 infectious process and neutropenic fever head ct (-) for acute disease Continue to treat with abx 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 -chemo held due to low platelets/aplastic crisis -will need evaluation after acute symptoms resolve Hypokalemia replete potassium Non-anion gap metabolic acidosis - low bicarb/high chloride -would recommend holding normal saline as this is increasing serum chloride and possibly contributing to acidosis -recommend transitioning to lactated ringers for fluid repletion between transfusions, which would assist in repleting potassium as well Hyperbilirubinemia: improving -continue to hydrate and transfuse prbcs Lactic Acidosis: resolved Pending transfer to [facility] Thank you for this consultative opportunity, Elton Melchor, PGY2 Discussed case with Dr. Shea Visit type - Emergency Visit Emergency Visit: No - New Patient This patient is new to me today: Yes Date on this admission: 05/01/18 - Critical Care Critical Care patient: No
[2018-05-01] MEDS: KCL 10 MEQ IVPB 10 MEQ/100 ML INFUS.BAG IVPB SCH ×3 (11:28→13:30)
--- NOTE | 2018-05-01 11:46 | PN ---
Teaching Attending Note Name of Resident: Tabitha Tellez ATTENDING PHYSICIAN STATEMENT I saw and evaluated the patient. I reviewed the resident's note and discussed the case with the resident. I agree with the resident's findings and plan as documented. SUBJECTIVE: Patient seen and examined in the ICU. Lethargic but arousable. Gripping hands and moves feet when repeatedly prompted. Severe hematologic derrangement noted. Hemodynamics stable. Transfusional support ordered. Intake & Output 04/28/18 04/29/18 04/30/18 05/01/18 23:59 23:59 23:59 23:59 Intake Total 350 2750 0 Balance 350 2750 0 Weight 124 lb 3 oz 124 lb 3 oz 125 lb 1.6 oz Last Vital Signs Temp Pulse Resp BP Pulse Ox 99.2 F 103 H 13 117/88 100 05/01/18 10:00 05/01/18 10:00 05/01/18 10:00 05/01/18 10:00 04/30/18 20:14 Active Medications Chlorhexidine Gluconate (Hibiclens For Decolonization -) 1 applic TP HS JAYLENE Last Admin: 04/30/18 21:13 Dose: 1 applic Sodium Chloride (Normal Saline -) 1,000 mls @ 150 mls/hr IV ASDIR JAYLENE Last Admin: 05/01/18 06:40 Dose: 150 mls/hr Piperacillin Sod/Tazobactam (Sod 3.375 gm/ Dextrose) 50 mls @ 100 mls/hr IVPB BID JAYLENE; Protocol Last Admin: 05/01/18 09:59 Dose: 100 mls/hr Vancomycin HCl 1,500 mg/ (Dextrose) 500 mls @ 250 mls/hr IVPB Q24H JAYLENE; Protocol Lorazepam (Ativan Injection -) 1 mg IVPUSH Q3H PRN PRN Reason: ANXIETY Last Admin: 04/30/18 22:52 Dose: 1 mg Mupirocin (Bactroban Ointment (For Decolonization) -) 1 applic NS BID JAYLENE Stop: 05/04/18 21:59 Last Admin: 05/01/18 09:58 Dose: 1 applic Non-Formulary Medication (Posaconazole [Noxafil]) 100 mg PO ASDIR JAYLENE Valacyclovir HCl (Valtrex -) 1,000 mg PO DAILY JAYLENE Last Admin: 05/01/18 09:59 Dose: Not Given Constitutional: Yes: Lethragic but arousable, NAD Eyes: Yes: WNL, Conjunctiva Clear, EOM Intact HENT: Yes: WNL, Atraumatic, Normocephalic Neck: Yes: WNL, Supple, Trachea Midline Cardiovascular: Yes: WNL, Regular Rate and Rhythm, Tachycardia, S1, S2 Respiratory: Yes: Clear Gastrointestinal: Yes: WNL, Normal Bowel Sounds, Soft Renal/: Yes: WNL Breast(s): Yes: WNL Musculoskeletal: Yes: WNL Extremities: Yes: WNL Edema: No Peripheral Pulses WNL: Yes Integumentary: Yes: Jaundice Neurological: Yes: Confusion ...Motor Strength: WNL Psychiatric: Yes: Agitated, confusion Labs: Laboratory Results - last 24 hr 04/29/18 04/30/18 04/30/18 16:24 13:45 13:45 WBC 1.0 L* RBC 2.53 L Hgb 7.2 L Hct 20.3 L D MCV 80.2 MCH 28.4 MCHC 35.4 RDW 16.1 H Plt Count 44 L MPV 8.6 Absolute Neuts (auto) 0.6 L Neutrophils % 64.9 Neutrophils % (Manual) 54.7 Band Neutrophils % 4.1 Lymphocytes % 21.4 Lymphocytes % (Manual) 33.0 D Monocytes % 9.5 Monocytes % (Manual) 4 Eosinophils % 4.0 D Eosinophils % (Manual) 3.1 D Basophils % 0.2 Basophils % (Manual) 0.0 Myelocytes % (Man) 1 Promyelocytes % (Man) 0 Blast Cells % (Manual) 0 D Nucleated RBC % 1 H Metamyelocytes 0 D Hypochromia 0 Platelet Estimate Decreased Polychromasia 0 Poikilocytosis 0 Anisocytosis 0 Microcytosis 0 Macrocytosis 0 Sodium 138 Potassium 4.0 Chloride 110 H Carbon Dioxide 21 Anion Gap 8 BUN 12 Creatinine 0.9 Creat Clearance w eGFR 88.61 Random Glucose 74 Lactic Acid Calcium 8.7 Phosphorus 4.2 Magnesium 1.5 L Total Bilirubin 2.2 H Direct Bilirubin 0.9 H AST 38 H ALT 60 Alkaline Phosphatase 189 H Total Protein 6.0 L Albumin 3.1 L Triglycerides 209 H Cholesterol 148 Total LDL Cholesterol 76 HDL Cholesterol 45 Crossmatch See Detail 04/30/18 04/30/18 05/01/18 13:45 19:55 05:30 WBC 1.5 L* 1.1 L* RBC 2.62 L 2.25 L Hgb 7.4 L 6.5 L* Hct 20.7 L 17.5 L D MCV 79.0 L 78.0 L MCH 28.1 28.8 MCHC 35.6 36.9 H RDW 15.8 16.0 H Plt Count 40 L 38 L MPV 7.8 9.0 D Absolute Neuts (auto) 0.6 L Neutrophils % 56.1 Neutrophils % (Manual) Band Neutrophils % Lymphocytes % 20.4 Lymphocytes % (Manual) Monocytes % 18.4 H D Monocytes % (Manual) Eosinophils % 4.8 H Eosinophils % (Manual) Basophils % 0.3 Basophils % (Manual) Myelocytes % (Man) Promyelocytes % (Man) Blast Cells % (Manual) Nucleated RBC % 0 Metamyelocytes Hypochromia Platelet Estimate Polychromasia Poikilocytosis Anisocytosis Microcytosis Macrocytosis Sodium Potassium Chloride Carbon Dioxide Anion Gap BUN Creatinine Creat Clearance w eGFR Random Glucose Lactic Acid 1.3 Calcium Phosphorus Magnesium Total Bilirubin Direct Bilirubin AST ALT Alkaline Phosphatase Total Protein Albumin Triglycerides Cholesterol Total LDL Cholesterol HDL Cholesterol Crossmatch 05/01/18 05:30 WBC RBC Hgb Hct MCV MCH MCHC RDW Plt Count MPV Absolute Neuts (auto) Neutrophils % Neutrophils % (Manual) Band Neutrophils % Lymphocytes % Lymphocytes % (Manual) Monocytes % Monocytes % (Manual) Eosinophils % Eosinophils % (Manual) Basophils % Basophils % (Manual) Myelocytes % (Man) Promyelocytes % (Man) Blast Cells % (Manual) Nucleated RBC % Metamyelocytes Hypochromia Platelet Estimate Polychromasia Poikilocytosis Anisocytosis Microcytosis Macrocytosis Sodium 140 Potassium 3.3 L Chloride 113 H Carbon Dioxide 19 L Anion Gap 8 BUN 10 Creatinine 0.8 Creat Clearance w eGFR 101.51 Random Glucose 78 Lactic Acid Calcium 7.8 L Phosphorus 4.6 Magnesium 1.4 L Total Bilirubin 1.4 H Direct Bilirubin AST 26 ALT 56 Alkaline Phosphatase 157 H Total Protein 5.1 L Albumin 2.6 L Triglycerides Cholesterol Total LDL Cholesterol HDL Cholesterol Crossmatch Problem List - Problems (1) Aplastic anemia Code(s): D61.9 - APLASTIC ANEMIA, UNSPECIFIED (2) B-cell lymphoma Code(s): C85.10 - UNSPECIFIED B-CELL LYMPHOMA, UNSPECIFIED SITE Qualifiers: B-cell lymphoma type: diffuse large B-cell Lymphoma site: unspecified region Qualified Code(s): C83.30 - Diffuse large B-cell lymphoma, unspecified site (3) Neutropenic sepsis Code(s): A41.9 - SEPSIS, UNSPECIFIED ORGANISM; D70.9 - NEUTROPENIA, UNSPECIFIED (4) Altered mental status Code(s): R41.82 - ALTERED MENTAL STATUS, UNSPECIFIED (5) Dehydration Code(s): E86.0 - DEHYDRATION (6) Hyperbilirubinemia Code(s): E80.6 - OTHER DISORDERS OF BILIRUBIN METABOLISM Assessment/Plan DLBCL on Chemo c/b AA (last chemo in February R-CHOP + itMTX; d/c'ed 2/2 thrombocytopenia) Montemayor-cytopneia AMS m/l multifactorial: neutropenic infection, Chemo, bone marrow suppression, AA crisis, paraneoplastic Transfusional support Aspiration precautions ABX coverage IVF Stict I's & O's Follow Renal function No AC PPI Would contact [facility] as that is where the patient has received all of his previous care: Does not currently require ICU level of care. Dr Viera
[2018-05-01] MEDS ORDERED: ACETAMINOPHEN 1000 MG/100 ML VIAL (NON FORMULARY) IVPB ONE (11:47)
[2018-05-01] MEDS: VANCOMYCIN HCL 1,500 MG in DEXTROSE 5%-WATER - 500 ML IVPB SCH (11:50)
[2018-05-01 14:02] LABS: ANISOCYTOSIS 1+; MACROCYTOSIS 0; PLATELET ESTIMATE DECREASED
--- NOTE | 2018-05-01 14:21 | PN ---
Progress Note, Physician History of Present Illness: patient looking much better more awake and alert fatigue receiving transfusion - Current Medication List Current Medications: Active Medications Chlorhexidine Gluconate (Hibiclens For Decolonization -) 1 applic TP HS JAYLENE Last Admin: 04/30/18 21:13 Dose: 1 applic Sodium Chloride (Normal Saline -) 1,000 mls @ 150 mls/hr IV ASDIR JAYLENE Last Admin: 05/01/18 06:40 Dose: 150 mls/hr Piperacillin Sod/Tazobactam (Sod 3.375 gm/ Dextrose) 50 mls @ 100 mls/hr IVPB BID JAYLENE; Protocol Last Admin: 05/01/18 09:59 Dose: 100 mls/hr Vancomycin HCl 1,500 mg/ (Dextrose) 500 mls @ 250 mls/hr IVPB Q24H JAYLENE; Protocol Last Admin: 05/01/18 11:50 Dose: 250 mls/hr Lorazepam (Ativan Injection -) 1 mg IVPUSH Q3H PRN PRN Reason: ANXIETY Last Admin: 04/30/18 22:52 Dose: 1 mg Mupirocin (Bactroban Ointment (For Decolonization) -) 1 applic NS BID [facility] Stop: 05/04/18 21:59 Last Admin: 05/01/18 09:58 Dose: 1 applic Non-Formulary Medication (Posaconazole [Noxafil]) 100 mg PO ASDIR JAYLENE Valacyclovir HCl (Valtrex -) 1,000 mg PO DAILY [facility] Last Admin: 05/01/18 09:59 Dose: Not Given - Objective Vital Signs: Vital Signs Temperature 102 F H 05/01/18 12:00 Pulse Rate 118 H 05/01/18 12:00 Respiratory Rate 15 05/01/18 12:00 Blood Pressure 120/82 05/01/18 12:00 O2 Sat by Pulse Oximetry (%) 100 04/30/18 20:14 Constitutional: Yes: Calm, Mild Distress Neck: Yes: Supple, Trachea Midline Cardiovascular: Yes: Regular Rate and Rhythm Respiratory: Yes: Regular, CTA Bilaterally Gastrointestinal: Yes: Normal Bowel Sounds, Soft Musculoskeletal: Yes: WNL Extremities: Yes: WNL Integumentary: Yes: WNL Neurological: Yes: Alert, Oriented Psychiatric: Yes: Alert, Oriented Labs: CBC, BMP 05/01/18 05:30 05/01/18 05:30 INR, PTT INR 1.20 (0.83-1.09) H 04/29/18 17:32 Assessment/Plan 52 yo M w/ pmhx of 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 Problem List - Problem (1) Aplastic anemia (2) B-cell lymphoma 3 sepsis 4 fever plan continue broad spectrum abx transfusion monitor closely rest as per icu nutrition monitor fevers cc 40 min
--- NOTE | 2018-05-01 15:04 | PN ---
Teaching Attending Note Name of Resident: Rojelio Alonso ATTENDING PHYSICIAN STATEMENT I saw and evaluated the patient. I reviewed the resident's note and discussed the case with the resident. I agree with the resident's findings and plan as documented. SUBJECTIVE: unable to obtain hx due to AMS . no events over night OBJECTIVE: NAD, lethargic but arousable. HEENT: dry lips, no thrush in mouth , round equal pupils, reactive to light, no facial droop, no JVD. CV: RRR, no mRG , no JVD Lungs: CTAB . no wheezes or crackles Ext : no edema or erythema. Assessment/Plan: Unfortunate 52 y/o man with h/o B cell lymphoma, with recent admission to [facility] for AMS, SAH, polymicrobial bacteremia ( including MRSA ) and hematemesis. he presented yesterday as he was found with AMS by his niece. He was found to have aplastic crisis. 1- Aplastic crisis: likely due to progression of his disease or chemotherapy , but can't r/o an acute infection/sepsis causing the crisis - transfuse one unit today and repeat CBC. keep Hb > 7 - check parvovirus B19 - neutropenic [precautions . - will repeat counts after transfusion . - neutropenic precautions - cont vanc and zosyn. will get vanco trough when due - follow blood cx 2- AMS: due to ? infection, vs severe anemia, vs stroke - hydrate and transfuse blood products - CT with no big stroke or bleed. - consider MRI 3- Transaminitis : improved . US noted . - trend Dispo: pending transfer to [facility]. Spoke with office coordinator receptionist . Bed is pending
[2018-05-01] MEDS ORDERED: ACETAMINOPHEN 1000 MG/100 ML VIAL (NON FORMULARY) IVPB PRN (17:42)
--- NOTE | 2018-05-01 18:51 | PN ---
Physical Exam: SUBJECTIVE: Patient seen and examined in ICU. Not responsive to questions. OBJECTIVE: Vital Signs Period Temp Pulse Resp BP Sys/Borjas Pulse Ox Last 24 Hr 97.7 F-102 F 90-118 13-16 91-130/71-88 100 GENERAL: Somnolent HEAD: Atraumatic/Normocephalic EYES: Scleral icterus NECK: Trachea midline, full range of motion, supple. LUNGS: Refused Lung exam HEART: RRR nl s1s2 ABDOMEN: Soft NDNT EXTREMITIES: No CCE Laboratory Results - last 24 hr 04/29/18 04/30/18 05/01/18 16:24 19:55 05:30 WBC 1.5 L* 1.1 L* RBC 2.62 L 2.25 L Hgb 7.4 L 6.5 L* Hct 20.7 L 17.5 L D MCV 79.0 L 78.0 L MCH 28.1 28.8 MCHC 35.6 36.9 H RDW 15.8 16.0 H Plt Count 40 L 38 L MPV 7.8 9.0 D Absolute Neuts (auto) 0.6 L Neutrophils % 56.1 Neutrophils % (Manual) 54.6 Band Neutrophils % 2.1 Lymphocytes % 20.4 Lymphocytes % (Manual) 19.6 D Monocytes % 18.4 H D Monocytes % (Manual) 14 H D Eosinophils % 4.8 H Eosinophils % (Manual) 4.1 Basophils % 0.3 Basophils % (Manual) 0.0 Myelocytes % (Man) 0 D Promyelocytes % (Man) 0 Blast Cells % (Manual) 5 H D Nucleated RBC % 0 Metamyelocytes 0 Hypochromia 0 Platelet Estimate Decreased Polychromasia 0 Poikilocytosis 0 Anisocytosis 1+ Microcytosis 1+ Macrocytosis 0 Sodium Potassium Chloride Carbon Dioxide Anion Gap BUN Creatinine Creat Clearance w eGFR Random Glucose Calcium Phosphorus Magnesium Total Bilirubin AST ALT Alkaline Phosphatase Total Protein Albumin Blood Type A POSITIVE Antibody Screen Negative Crossmatch See Detail 05/01/18 05:30 WBC RBC Hgb Hct MCV MCH MCHC RDW Plt Count MPV Absolute Neuts (auto) Neutrophils % Neutrophils % (Manual) Band Neutrophils % Lymphocytes % Lymphocytes % (Manual) Monocytes % Monocytes % (Manual) Eosinophils % Eosinophils % (Manual) Basophils % Basophils % (Manual) Myelocytes % (Man) Promyelocytes % (Man) Blast Cells % (Manual) Nucleated RBC % Metamyelocytes Hypochromia Platelet Estimate Polychromasia Poikilocytosis Anisocytosis Microcytosis Macrocytosis Sodium 140 Potassium 3.3 L Chloride 113 H Carbon Dioxide 19 L Anion Gap 8 BUN 10 Creatinine 0.8 Creat Clearance w eGFR 101.51 Random Glucose 78 Calcium 7.8 L Phosphorus 4.6 Magnesium 1.4 L Total Bilirubin 1.4 H AST 26 ALT 56 Alkaline Phosphatase 157 H Total Protein 5.1 L Albumin 2.6 L Blood Type Antibody Screen Crossmatch Active Medications Generic Name Dose Route Start Last Admin Trade Name Freq PRN Reason Stop Dose Admin Acetaminophen 1,000 mg 05/01/18 17:42 05/01/18 18:34 Ofirmev Injection - IVPB 1,000 mg Q6H PRN Administration PAIN LEVEL 7 - 10 Chlorhexidine Gluconate 1 applic 04/29/18 22:00 04/30/18 21:13 Hibiclens For Decolonization - TP 1 applic HS JAYLENE Administration Sodium Chloride 1,000 mls @ 150 mls/hr 04/30/18 01:00 05/01/18 06:40 Normal Saline - IV 150 mls/hr ASDIR JAYLENE Administration Piperacillin Sod/Tazobactam 50 mls @ 100 mls/hr 04/30/18 22:00 05/01/18 09:59 Sod 3.375 gm/ Dextrose IVPB 100 mls/hr BID JAYLENE Administration Protocol Vancomycin HCl 1,500 mg/ 500 mls @ 250 mls/hr 05/01/18 10:00 05/01/18 11:50 Dextrose IVPB 250 mls/hr Q24H JAYLENE Administration Protocol Lorazepam 1 mg 04/29/18 23:25 04/30/18 22:52 Ativan Injection - IVPUSH 1 mg Q3H PRN Administration ANXIETY Mupirocin 1 applic 04/29/18 22:00 05/01/18 09:58 Bactroban Ointment (For Decolonization) - NS 05/04/18 21:59 1 applic BID AJYLENE Administration Non-Formulary Medication 100 mg 04/29/18 23:30 Posaconazole [Noxafil] PO ASDIR JAYLENE Valacyclovir HCl 1,000 mg 04/30/18 10:00 05/01/18 09:59 Valtrex - PO Not Given DAILY [facility] ASSESSMENT/PLAN: Unfortunate 52 y/o man with h/o B cell lymphoma, with recent admission to [facility] for AMS, SAH, polymicrobial bacteremia ( including MRSA ) and hematemesis. Presented to [facility] as he was found with AMS by his niece. He was found to have aplastic crisis. #Aplastic crisis likely 2/2 chemotherapy -s/p 4U pRBC, 1U pl upon admission -H/H today 6.5/17.5; Abs neuts 0.6 -1U pRBC ordered today; recheck CBC this evening. Goal Hgb >7, transfuse PRN -Neutropenic precautions - check parvovirus B19 #Diffuse Large B Cell Lymphoma - hold chemotherapy agents -Per ID, cont Vanc 1500 mg/Zosyn 3.375 gm for broad spectrum coverage -BCx (04/29) neg x24h; follow up final results -UCx neg FEN -NS @ 150 -Monitor Electrolytes -NPO Dispo -[facility] has accepted patient. Waiting on bed availability. - Visit type - Emergency Visit Emergency Visit: Yes ED Registration Date: 04/29/18 Care time: The patient presented to the Emergency Department on the above date and was hospitalized for further evaluation of their emergent condition. - New Patient This patient is new to me today: Yes Date on this admission: 05/01/18 - Critical Care Critical Care patient: Yes Total Critical Care Time (in minutes): 35 Critical Care Statement: The care of this patient involved high complexity decision making to prevent further life threatening deterioration of the patient 's condition and/or to evaluate & treat vital organ system(s) failure or risk of failure. - Discharge Referral Referred to [facility] No
[2018-05-01 21:01] LABS: HEMATOCRIT 20.7 % (35.4-49); MCHC 35.5 g/dl (32.0-35.9); MEAN CELL VOLUME 81.7 fl (80-96); MEAN PLT VOLUME 9.3 fl (7.5-11.1); RBC 2.53 M/mm3 (4.00-5.60); RDW 17.5 % (11.9-15.9)
[2018-05-01 21:15] LABS: HEMOGLOBIN 7.3 GM/dL (11.7-16.9); WHITE BLOOD COUNT 1.2 K/mm3 (4.0-10.0)
[2018-05-01 21:16] LABS: PLATELET COUNT 28 K/MM3 (134-434)
[2018-05-01] MEDS: CHLORHEXIDINE GLUCONATE 4% CLEANSER FOR DECOLONIZATION TP SCH (21:26)
[2018-05-02] MEDS: SODIUM CHLORIDE 1,000 ML IV SCH (02:00)
[2018-05-02 06:58] LABS: HEMATOCRIT 20.1 % (35.4-49); HEMOGLOBIN 7.1 GM/dL (11.7-16.9); MCH 28.5 pg (25.7-33.7); MCHC 35.3 g/dl (32.0-35.9); MEAN CELL VOLUME 80.6 fl (80-96); MEAN PLT VOLUME 8.9 fl (7.5-11.1); RDW 16.8 % (11.9-15.9)
[2018-05-02 07:17] LABS: ALBUMIN 2.3 g/dl (3.4-5.0); ALK PHOS 130 U/L (45-117); ANION GAP 8 MMOL/L (8-16); BILIRUBIN,TOTAL 1.1 mg/dL (0.2-1); BLOOD UREA NITROGEN 8 mg/dL (7-18); CALCIUM 7.4 mg/dL (8.5-10.1); CHLORIDE 112 mmol/L (98-107); CO2 20 mmol/L (21-32); CREATININE 0.7 mg/dL (0.55-1.3); GLUCOSE,RANDOM 76 mg/dL (74-106); MAGNESIUM 1.6 mg/dL (1.8-2.4); POTASSIUM 3.2 mmol/L (3.5-5.1); SGOT/AST 15 U/L (15-37); SGPT/ALT 40 U/L (13-61); SODIUM 140 mmol/L (136-145); TOT PROT 4.6 g/dl (6.4-8.2)
--- NOTE | 2018-05-02 07:41 | PN ---
Physical Exam: SUBJECTIVE: Patient seen and examined at bedside. No acute events overnight. OBJECTIVE: Vital Signs Period Temp Pulse Resp BP Sys/Borjas Pulse Ox Last 24 Hr 97.8 F-102 F 86-118 13-17 82-130/57-88 100 GENERAL: Awake and alert. Nodding head in response to yes or no questions. Able to answer some questions. Oriented x1. HEENT: AT/NC. EOMI. MMM. NECK: Trachea midline, full range of motion, supple. LUNGS: CTA B/L. No wheezes noted. HEART: RRR. Normal S1, S2. No murmurs noted. ABDOMEN: Soft, NT/ND. normoactive bowel sounds. EXTREMITIES: 2+ pulses, warm, well-perfused, no edema. NEUROLOGICAL: Unable to assess. CBCD WBC 1.2 K/mm3 (4.0-10.0) L* 05/01/18 20:00 RBC 2.53 M/mm3 (4.00-5.60) L 05/01/18 20:00 Hgb 7.3 GM/dL (11.7-16.9) L 05/01/18 20:00 Hct 20.7 % (35.4-49) L D 05/01/18 20:00 MCV 81.7 fl (80-96) 05/01/18 20:00 MCHC 35.5 g/dl (32.0-35.9) 05/01/18 20:00 RDW 17.5 % (11.9-15.9) H 05/01/18 20:00 Plt Count 28 K/MM3 (134-434) L* D 05/01/18 20:00 MPV 9.3 fl (7.5-11.1) 05/01/18 20:00 CMP Sodium 140 mmol/L (136-145) 05/02/18 05:30 Potassium 3.2 mmol/L (3.5-5.1) L 05/02/18 05:30 Chloride 112 mmol/L (98-107) H 05/02/18 05:30 Carbon Dioxide 20 mmol/L (21-32) L 05/02/18 05:30 Anion Gap 8 MMOL/L (8-16) 05/02/18 05:30 BUN 8 mg/dL (7-18) 05/02/18 05:30 Creatinine 0.7 mg/dL (0.55-1.3) 05/02/18 05:30 Creat Clearance w eGFR 118.43 (>60) 05/02/18 05:30 Calcium 7.4 mg/dL (8.5-10.1) L 05/02/18 05:30 Total Bilirubin 1.1 mg/dL (0.2-1) H 05/02/18 05:30 AST 15 U/L (15-37) 05/02/18 05:30 ALT 40 U/L (13-61) 05/02/18 05:30 Alkaline Phosphatase 130 U/L (45-117) H 05/02/18 05:30 Total Protein 4.6 g/dl (6.4-8.2) L 05/02/18 05:30 Albumin 2.3 g/dl (3.4-5.0) L 05/02/18 05:30 Active Medications Acetaminophen (Ofirmev Injection -) 1,000 mg IVPB Q6H PRN PRN Reason: PAIN LEVEL 7 - 10 Last Admin: 05/01/18 18:34 Dose: 1,000 mg Chlorhexidine Gluconate (Hibiclens For Decolonization -) 1 applic TP HS JAYLENE Last Admin: 05/01/18 21:26 Dose: 1 applic Sodium Chloride (Normal Saline -) 1,000 mls @ 150 mls/hr IV ASDIR JAYLENE Last Admin: 05/02/18 02:00 Dose: 150 mls/hr Piperacillin Sod/Tazobactam (Sod 3.375 gm/ Dextrose) 50 mls @ 100 mls/hr IVPB BID [facility]; Protocol Last Admin: 05/01/18 21:26 Dose: 100 mls/hr Vancomycin HCl 1,500 mg/ (Dextrose) 500 mls @ 250 mls/hr IVPB Q24H JAYLENE; Protocol Last Admin: 05/01/18 11:50 Dose: 250 mls/hr Potassium Chloride (Potassium Chloride 10 Meq Premix Ivpb -) 10 meq in 100 mls @ 100 mls/hr IVPB Q60M JAYLENE Stop: 05/02/18 10:29 Lorazepam (Ativan Injection -) 1 mg IVPUSH Q3H PRN PRN Reason: ANXIETY Last Admin: 04/30/18 22:52 Dose: 1 mg Magnesium Sulfate (Magnesium Sulfate) 2 gm IVPB ONCE ONE Stop: 05/02/18 07:28 Mupirocin (Bactroban Ointment (For Decolonization) -) 1 applic NS BID [facility] Stop: 05/04/18 21:59 Last Admin: 05/01/18 21:25 Dose: 1 applic Non-Formulary Medication (Posaconazole [Noxafil]) 100 mg PO ASDIR [facility] Valacyclovir HCl (Valtrex -) 1,000 mg PO DAILY [facility] Last Admin: 05/01/18 09:59 Dose: Not Given IMAGING: * CXR (04/29/18): No acute chest pathology. * Head CT (04/29/18): No definite CT evidence of acute IC pathology. Possible minimal to mild periventricular chronic microvascular changes. Small amt of nonspecific fluid seen within L mastoid air cells. B/l nasal fractures probably chronic. * Multiple GB calculi noted w/ resultant partial obstruction of posterior GB wall and fundus. No obvious GB overdistension. CBD measuring 0.3mm in diameter. 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 NEURO -More alert today, answering questions nodding head. -Neuro checks PULM -Aspiration precautions -O2 NC 2L -monitor O2 sat HEME #Aplastic crisis likely 2/2 chemotherapy -s/p 5U pRBCs, 1U platelets total this admission -H/H stable; trend CBC, transfuse PRN #Diffuse Large B Cell Lymphoma -hold chemotherapy agents ID -Per ID, cont Vanc 1500 mg/Zosyn 3.375 gm for broad spectrum coverage -BCx (04/29) neg x72h; follow up final results -UCx neg -ID recs PROPHYLAXIS -Hold AC FEN -NS @ 150 -repletes lytes PRN -NPO Dispo -transfer to [facility] -Primary team contacted by tertiary care facility; pt accepted for transfer, but still awaiting bed -full code Visit type - Emergency Visit Emergency Visit: Yes ED Registration Date: 04/29/18 Care time: The patient presented to the Emergency Department on the above date and was hospitalized for further evaluation of their emergent condition. - New Patient This patient is new to me today: No - Critical Care Critical Care patient: Yes Total Critical Care Time (in minutes): 30 Critical Care Statement: The care of this patient involved high complexity decision making to prevent further life threatening deterioration of the patient 's condition and/or to evaluate & treat vital organ system(s) failure or risk of failure.
[2018-05-02 08:03] LABS: WHITE BLOOD COUNT 1.3 K/mm3 (4.0-10.0)
[2018-05-02 08:04] LABS: PLATELET COUNT 24 K/MM3 (134-434)
[2018-05-02] MEDS ORDERED: MAGNESIUM SULF 50% (8.12 MEQ/2 ML-1 GM VIAL) ONE (08:07)
[2018-05-02] MEDS ORDERED: PIPERACILLIN/TAZOBACTAM 3.375 GM VIAL IVPB ONE ×2 (08:07→20:15)
[2018-05-02] MEDS ORDERED: DEXTROSE 5%-WATER - 50 ML IVPB ONE ×2 (08:08→20:15)
[2018-05-02] MEDS ORDERED: LACTATED RINGERS SOLUTION 1,000 ML/1,000 ML INFUS.BAG IV SCH (08:15)
[2018-05-02] MEDS ORDERED: MAGNESIUM 2GM/50ML STERILE WATER IVPB IVPB ONE (08:30)
[2018-05-02] MEDS: PIPERACILLIN/TAZOB 3.375 GM 3.375 GM in DEXTROSE 5%-WATER - 50 ML IVPB SCH ×2 (09:19→22:10)
[2018-05-02] MEDS: KCL 10 MEQ IVPB 10 MEQ/100 ML INFUS.BAG IVPB SCH ×3 (09:27→13:32)
--- NOTE | 2018-05-02 10:43 | PN ---
Teaching Attending Note Name of Resident: Tabitha Tellez ATTENDING PHYSICIAN STATEMENT I saw and evaluated the patient. I reviewed the resident's note and discussed the case with the resident. I agree with the resident's findings and plan as documented. SUBJECTIVE: Patient seen and examined in the ICU. Less lethargic today and more interactive. Can tell us his name. Moves all extremities. No occult bleeding noted. Intake & Output 04/29/18 04/30/18 05/01/18 05/02/18 23:59 23:59 23:59 23:59 Intake Total 350 2750 4090 1800 Output Total 700 Balance 350 2750 4090 1100 Weight 124 lb 3 oz 124 lb 3 oz 125 lb 127 lb Last Vital Signs Temp Pulse Resp BP Pulse Ox 98.7 F 88 14 93/62 100 05/02/18 04:00 05/02/18 08:00 05/02/18 08:00 05/02/18 08:00 05/01/18 21:00 Active Medications Acetaminophen (Ofirmev Injection -) 1,000 mg IVPB Q6H PRN PRN Reason: PAIN LEVEL 7 - 10 Last Admin: 05/01/18 18:34 Dose: 1,000 mg Piperacillin Sod/Tazobactam (Sod 3.375 gm/ Dextrose) 50 mls @ 100 mls/hr IVPB BID [facility]; Protocol Last Admin: 05/02/18 09:19 Dose: 100 mls/hr Vancomycin HCl 1,500 mg/ (Dextrose) 500 mls @ 250 mls/hr IVPB Q24H [facility]; Protocol Last Admin: 05/01/18 11:50 Dose: 250 mls/hr Potassium Chloride (Potassium Chloride 10 Meq Premix Ivpb -) 10 meq in 100 mls @ 100 mls/hr IVPB Q60M JAYLENE Stop: 05/02/18 11:14 Last Admin: 05/02/18 09:27 Dose: 100 mls/hr Lactated Ringer's (Lactated Ringers Solution) 1,000 ml in 1,000 mls @ 150 mls/ hr IV ASDIR JAYLENE Last Admin: 05/02/18 08:18 Dose: 150 mls/hr Lorazepam (Ativan Injection -) 1 mg IVPUSH Q3H PRN PRN Reason: ANXIETY Last Admin: 04/30/18 22:52 Dose: 1 mg Non-Formulary Medication (Posaconazole [Noxafil]) 100 mg PO ASDIR [facility] Valacyclovir HCl (Valtrex -) 1,000 mg PO DAILY [facility] Last Admin: 05/01/18 09:59 Dose: Not Given Constitutional: Yes: Less lethargic, more interactive, NAD Eyes: Yes: WNL, Conjunctiva Clear, EOM Intact HENT: Yes: WNL, Atraumatic, Normocephalic Neck: Yes: WNL, Supple, Trachea Midline Cardiovascular: Yes: WNL, Regular Rate and Rhythm, Tachycardia, S1, S2 Respiratory: Yes: Clear Gastrointestinal: Yes: WNL, Normal Bowel Sounds, Soft Renal/: Yes: WNL Breast(s): Yes: WNL Musculoskeletal: Yes: WNL Extremities: Yes: WNL Edema: No Peripheral Pulses WNL: Yes Integumentary: Yes: Jaundice Neurological: Yes: Confusion ...Motor Strength: WNL Psychiatric: Yes: confusion Labs: Laboratory Results - last 24 hr 04/29/18 05/01/18 05/01/18 16:24 05:30 20:00 WBC 1.2 L* RBC 2.53 L Hgb 7.3 L Hct 20.7 L D MCV 81.7 MCH 29.0 MCHC 35.5 RDW 17.5 H Plt Count 28 L* D MPV 9.3 Neutrophils % (Manual) 54.6 Band Neutrophils % 2.1 Lymphocytes % (Manual) 19.6 D Monocytes % (Manual) 14 H D Eosinophils % (Manual) 4.1 Basophils % (Manual) 0.0 Myelocytes % (Man) 0 D Promyelocytes % (Man) 0 Blast Cells % (Manual) 5 H D Metamyelocytes 0 Hypochromia 0 Platelet Estimate Decreased Polychromasia 0 Poikilocytosis 0 Anisocytosis 1+ Microcytosis 1+ Macrocytosis 0 Sodium Potassium Chloride Carbon Dioxide Anion Gap BUN Creatinine Creat Clearance w eGFR Random Glucose Calcium Phosphorus Magnesium Total Bilirubin AST ALT Alkaline Phosphatase Total Protein Albumin Vancomycin Pre-Dose Blood Type A POSITIVE Antibody Screen Negative Crossmatch See Detail 05/02/18 05/02/18 05/02/18 05:30 05:30 09:35 WBC 1.3 L* RBC 2.50 L Hgb 7.1 L Hct 20.1 L MCV 80.6 MCH 28.5 MCHC 35.3 RDW 16.8 H Plt Count 24 L* MPV 8.9 Neutrophils % (Manual) Band Neutrophils % Lymphocytes % (Manual) Monocytes % (Manual) Eosinophils % (Manual) Basophils % (Manual) Myelocytes % (Man) Promyelocytes % (Man) Blast Cells % (Manual) Metamyelocytes Hypochromia Platelet Estimate Polychromasia Poikilocytosis Anisocytosis Microcytosis Macrocytosis Sodium 140 Potassium 3.2 L Chloride 112 H Carbon Dioxide 20 L Anion Gap 8 BUN 8 Creatinine 0.7 Creat Clearance w eGFR 118.43 Random Glucose 76 Calcium 7.4 L Phosphorus 4.0 Magnesium 1.6 L Total Bilirubin 1.1 H AST 15 ALT 40 Alkaline Phosphatase 130 H Total Protein 4.6 L Albumin 2.3 L Vancomycin Pre-Dose 14.5 L Blood Type Antibody Screen Crossmatch Problem List - Problems (1) Aplastic anemia Code(s): D61.9 - APLASTIC ANEMIA, UNSPECIFIED (2) B-cell lymphoma Code(s): C85.10 - UNSPECIFIED B-CELL LYMPHOMA, UNSPECIFIED SITE Qualifiers: B-cell lymphoma type: diffuse large B-cell Lymphoma site: unspecified region Qualified Code(s): C83.30 - Diffuse large B-cell lymphoma, unspecified site (3) Neutropenic sepsis Code(s): A41.9 - SEPSIS, UNSPECIFIED ORGANISM; D70.9 - NEUTROPENIA, UNSPECIFIED (4) Altered mental status Code(s): R41.82 - ALTERED MENTAL STATUS, UNSPECIFIED (5) Dehydration Code(s): E86.0 - DEHYDRATION (6) Hyperbilirubinemia Code(s): E80.6 - OTHER DISORDERS OF BILIRUBIN METABOLISM Assessment/Plan DLBCL on Chemo c/b AA (last chemo in February R-CHOP + itMTX; d/c'ed 2/2 thrombocytopenia) Montemayor-cytopneia AMS m/l multifactorial: neutropenic infection, Chemo, bone marrow suppression, AA crisis, paraneoplastic Transfusional support Aspiration precautions ABX coverage IVF Stict I's & O's Follow Renal function No AC PPI Would contact [facility] as that is where the patient has received all of his previous care: Does not currently require ICU level of care. Dr Viera
[2018-05-02] MEDS: valACYclovir HCL 500 MG TABLET (FP) PO SCH (11:58)
[2018-05-02] MEDS ORDERED: POSACONAZOLE 100 MG PO SCH (12:23)
[2018-05-02] MEDS ORDERED: ACETAMINOPHEN 1000 MG/100 ML VIAL (NON FORMULARY) IVPB PRN (12:23)
[2018-05-02] MEDS ORDERED: LORazepam 2 MG/ML SDV VIAL IVPUSH PRN (12:23)
[2018-05-02] MEDS: MUPIROCIN 2% TOPICAL OINTMENT FOR DECOLONIZATION NS SCH (12:27)
[2018-05-02] MEDS: VANCOMYCIN HCL 1,500 MG in DEXTROSE 5%-WATER - 500 ML IVPB SCH (12:27)
[2018-05-02] MEDS: POSACONAZOLE 100 MG PO SCH ×2 (12:27→12:28)
--- NOTE | 2018-05-02 12:37 | PN ---
Physical Exam: SUBJECTIVE: Patient seen and examined at bedside. Compared to yesterday, patient is more awake and alert, is able to speak (in polish). Denies overt pain, fevers, chills, nausea, vomiting, diarrhea. OBJECTIVE: Vital Signs Period Temp Pulse Resp BP Sys/Borjas Pulse Ox Last 24 Hr 97.8 F-99.0 F 86-109 14-17 82-118/57-79 100-100 GENERAL: The patient is awake alert and oriented HEAD: Normal with no signs of trauma. EYES: Pupils equal, round and reactive to light ENT: poor dentition, otherwise normal oropharynx, no peticheae NECK: Trachea midline, full range of motion, supple, no masses palpated LUNGS: Breath sounds equal but coarse, no crackles noted bilaterally HEART: tachycardic without murmur ABDOMEN: Soft, nontender, nondistended, bowel sounds present, no masses palpated EXTREMITIES: 2+ pulses, warm, well-perfused, no edema. SKIN: Warm, dry, normal turgor, no rashes or lesions noted Laboratory Results - last 24 hr 04/29/18 05/01/18 05/01/18 16:24 05:30 20:00 WBC 1.2 L* RBC 2.53 L Hgb 7.3 L Hct 20.7 L D MCV 81.7 MCH 29.0 MCHC 35.5 RDW 17.5 H Plt Count 28 L* D MPV 9.3 Neutrophils % (Manual) 54.6 Band Neutrophils % 2.1 Lymphocytes % (Manual) 19.6 D Monocytes % (Manual) 14 H D Eosinophils % (Manual) 4.1 Basophils % (Manual) 0.0 Myelocytes % (Man) 0 D Promyelocytes % (Man) 0 Blast Cells % (Manual) 5 H D Metamyelocytes 0 Hypochromia 0 Platelet Estimate Decreased Polychromasia 0 Poikilocytosis 0 Anisocytosis 1+ Microcytosis 1+ Macrocytosis 0 Sodium Potassium Chloride Carbon Dioxide Anion Gap BUN Creatinine Creat Clearance w eGFR Random Glucose Calcium Phosphorus Magnesium Total Bilirubin AST ALT Alkaline Phosphatase Total Protein Albumin Vancomycin Pre-Dose Blood Type A POSITIVE Antibody Screen Negative Crossmatch See Detail 05/02/18 05/02/18 05/02/18 05:30 05:30 09:35 WBC 1.3 L* RBC 2.50 L Hgb 7.1 L Hct 20.1 L MCV 80.6 MCH 28.5 MCHC 35.3 RDW 16.8 H Plt Count 24 L* MPV 8.9 Neutrophils % (Manual) Band Neutrophils % Lymphocytes % (Manual) Monocytes % (Manual) Eosinophils % (Manual) Basophils % (Manual) Myelocytes % (Man) Promyelocytes % (Man) Blast Cells % (Manual) Metamyelocytes Hypochromia Platelet Estimate Polychromasia Poikilocytosis Anisocytosis Microcytosis Macrocytosis Sodium 140 Potassium 3.2 L Chloride 112 H Carbon Dioxide 20 L Anion Gap 8 BUN 8 Creatinine 0.7 Creat Clearance w eGFR 118.43 Random Glucose 76 Calcium 7.4 L Phosphorus 4.0 Magnesium 1.6 L Total Bilirubin 1.1 H AST 15 ALT 40 Alkaline Phosphatase 130 H Total Protein 4.6 L Albumin 2.3 L Vancomycin Pre-Dose 14.5 L Blood Type Antibody Screen Crossmatch Active Medications Generic Name Dose Route Start Last Admin Trade Name Freq PRN Reason Stop Dose Admin Acetaminophen 1,000 mg 05/02/18 12:23 Ofirmev Injection - IVPB Q6H PRN PAIN LEVEL 7 - 10 Lactated Ringer's 1,000 ml in 1,000 mls @ 150 mls/hr 05/02/18 12:23 Lactated Ringers Solution IV ASDIR JAYLENE Vancomycin HCl 1,500 mg/ 500 mls @ 250 mls/hr 05/03/18 10:00 Dextrose IVPB Q24H JAYLENE Protocol Piperacillin Sod/Tazobactam 50 mls @ 100 mls/hr 05/02/18 22:00 Sod 3.375 gm/ Dextrose IVPB BID [facility] Protocol Lorazepam 1 mg 05/02/18 12:23 Ativan Injection - IVPUSH Q3H PRN ANXIETY Non-Formulary Medication 100 mg 05/02/18 12:23 Posaconazole [Noxafil] PO ASDIR JAYLENE Valacyclovir HCl 1,000 mg 05/03/18 10:00 Valtrex - PO DAILY [facility] CBC, BMP 05/02/18 05:30 05/02/18 05:30 ASSESSMENT/PLAN: 52 year old male with a hx of 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 (most recently 02/15) with aplastic crisis presented for altered mental status, multiple falls Aplastic crisis: possibly secondary to bone marrow destruction from chemotherapy , absolute neutrophil count 600 = moderate neutropenia compounded with overlying infection -neutropenic precautions -s/p multiple transfusions -continue to transfuse to hgb goal of 7 -continue abx Altered Mental Status: possibly 2/2 infectious process and neutropenic fever head ct (-) for acute disease Continue to treat with abx 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 -chemo held due to low platelets/aplastic crisis -will need evaluation after acute symptoms resolve Hypokalemia replete potassium Hyperbilirubinemia: improving -continue to hydrate and transfuse prbcs Lactic Acidosis: resolved Pending transfer to [facility] Thank you for this consultative opportunity, Elton Melchor, PGY2 Visit type - Emergency Visit Emergency Visit: No - New Patient This patient is new to me today: No - Critical Care Critical Care patient: Yes Total Critical Care Time (in minutes): 37 Critical Care Statement: The care of this patient involved high complexity decision making to prevent further life threatening deterioration of the patient 's condition and/or to evaluate & treat vital organ system(s) failure or risk of failure.
--- NOTE | 2018-05-02 13:12 | PN ---
Teaching Attending Note Name of Resident: Rojelio Alonso ATTENDING PHYSICIAN STATEMENT I saw and evaluated the patient. I reviewed the resident's note and discussed the case with the resident. I agree with the resident's findings and plan as documented. SUBJECTIVE: No pain or SOB. OBJECTIVE: NAD, awake, responsive and cooperative. knows location , not age. knows his name and his 's. HEENT: no thrush in mouth , round equal pupils, reactive to light, no facial droop, no JVD. CV: RRR, no MRG, no JVD Lungs: CTAB . Ext: no edema or erythema. Neuro exam non focal with no neglect per Dr Hamm's exam Assessment/Plan: Unfortunate 52 y/o man with h/o B cell lymphoma, with recent admission to [facility] for AMS, SAH, polymicrobial bacteremia ( including MRSA ) and hematemesis. he presented yesterday as he was found with AMS by his niece. He was found to have aplastic crisis. 1- Aplastic crisis: - transfuse for Hb < 7 - parvovirus B19 pending - neutropenic precautions . - repeat CBC this afternoon - cont vanc and zosyn. will get vanco trough today - blood cx neg x 48 hr 2- AMS: more awake today and cooperative - hydrate and transfuse blood products as needed 3- Transaminitis: improved. - trend Transfer to Med surg Dispo: pending transfer to [facility] when bed is available
[2018-05-02] MEDS: LACTATED RINGERS SOLUTION 1,000 ML/1,000 ML INFUS.BAG IV SCH ×2 (13:15→19:04)
--- NOTE | 2018-05-02 13:16 | PN ---
Progress Note, Physician History of Present Illness: patient looking much better patient spike a fever high grade yesterday afternoon now doing very well - Current Medication List Current Medications: Active Medications Acetaminophen (Ofirmev Injection -) 1,000 mg IVPB Q6H PRN PRN Reason: PAIN LEVEL 7 - 10 Lactated Ringer's (Lactated Ringers Solution) 1,000 ml in 1,000 mls @ 150 mls/ hr IV ASDIR [facility] Vancomycin HCl 1,500 mg/ (Dextrose) 500 mls @ 250 mls/hr IVPB Q24H [facility]; Protocol Piperacillin Sod/Tazobactam (Sod 3.375 gm/ Dextrose) 50 mls @ 100 mls/hr IVPB BID [facility]; Protocol Lorazepam (Ativan Injection -) 1 mg IVPUSH Q3H PRN PRN Reason: ANXIETY Non-Formulary Medication (Posaconazole [Noxafil]) 100 mg PO ASDIR [facility] Valacyclovir HCl (Valtrex -) 1,000 mg PO DAILY [facility] - Objective Vital Signs: Vital Signs Temperature 98.4 F 05/02/18 12:39 Pulse Rate 69 05/02/18 12:39 Respiratory Rate 17 05/02/18 12:39 Blood Pressure 103/69 05/02/18 12:39 O2 Sat by Pulse Oximetry (%) 100 05/02/18 09:00 Constitutional: Yes: No Distress, Calm Cardiovascular: Yes: Regular Rate and Rhythm Respiratory: Yes: Regular, CTA Bilaterally Gastrointestinal: Yes: Normal Bowel Sounds, Soft Musculoskeletal: Yes: WNL Extremities: Yes: WNL Neurological: Yes: Alert, Oriented Psychiatric: Yes: Alert, Oriented Labs: CBC, BMP 05/02/18 05:30 05/02/18 05:30 INR, PTT INR 1.20 (0.83-1.09) H 04/29/18 17:32 Assessment/Plan 52 yo M w/ pmhx of 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 Problem List - Problem (1) Aplastic anemia (2) B-cell lymphoma 3 sepsis 4 fever plan will continue abx if patient remains afebrile for 24 hours will stop vanco tomorrow and zosyn the following day close watch monitor his h and h rest as per the team
--- NOTE | 2018-05-02 15:18 | PN ---
Physical Exam: SUBJECTIVE: Patient seen and examined at bedside. Somnolent, responds to verbal stimuli. OBJECTIVE: Vital Signs Period Temp Pulse Resp BP Sys/Borjas Pulse Ox Last 24 Hr 97.8 F-99.0 F 69-109 14-17 82-118/57-79 100-100 GENERAL: Somnolent HEAD: Atraumatic/Normocephalic EYES: Scleral icterus NECK: Trachea midline, full range of motion, supple. LUNGS: Refused Lung exam HEART: RRR nl s1s2 ABDOMEN: Soft NDNT EXTREMITIES: No CCE Laboratory Results - last 24 hr 05/01/18 05/01/18 05/02/18 05:30 20:00 05:30 WBC 1.2 L* 1.3 L* RBC 2.53 L 2.50 L Hgb 7.3 L 7.1 L Hct 20.7 L D 20.1 L MCV 81.7 80.6 MCH 29.0 28.5 MCHC 35.5 35.3 RDW 17.5 H 16.8 H Plt Count 28 L* D 24 L* MPV 9.3 8.9 Neutrophils % (Manual) 54.6 Band Neutrophils % 2.1 Lymphocytes % (Manual) 19.6 D Monocytes % (Manual) 14 H D Eosinophils % (Manual) 4.1 Basophils % (Manual) 0.0 Myelocytes % (Man) 0 D Promyelocytes % (Man) 0 Blast Cells % (Manual) 5 H D Metamyelocytes 0 Hypochromia 0 Platelet Estimate Decreased Polychromasia 0 Poikilocytosis 0 Anisocytosis 1+ Microcytosis 1+ Macrocytosis 0 Sodium Potassium Chloride Carbon Dioxide Anion Gap BUN Creatinine Creat Clearance w eGFR Random Glucose Calcium Phosphorus Magnesium Total Bilirubin AST ALT Alkaline Phosphatase Total Protein Albumin Vancomycin Pre-Dose 05/02/18 05/02/18 05:30 09:35 WBC RBC Hgb Hct MCV MCH MCHC RDW Plt Count MPV Neutrophils % (Manual) Band Neutrophils % Lymphocytes % (Manual) Monocytes % (Manual) Eosinophils % (Manual) Basophils % (Manual) Myelocytes % (Man) Promyelocytes % (Man) Blast Cells % (Manual) Metamyelocytes Hypochromia Platelet Estimate Polychromasia Poikilocytosis Anisocytosis Microcytosis Macrocytosis Sodium 140 Potassium 3.2 L Chloride 112 H Carbon Dioxide 20 L Anion Gap 8 BUN 8 Creatinine 0.7 Creat Clearance w eGFR 118.43 Random Glucose 76 Calcium 7.4 L Phosphorus 4.0 Magnesium 1.6 L Total Bilirubin 1.1 H AST 15 ALT 40 Alkaline Phosphatase 130 H Total Protein 4.6 L Albumin 2.3 L Vancomycin Pre-Dose 14.5 L Active Medications Generic Name Dose Route Start Last Admin Trade Name Freq PRN Reason Stop Dose Admin Acetaminophen 1,000 mg 05/02/18 12:23 Ofirmev Injection - IVPB Q6H PRN PAIN LEVEL 7 - 10 Lactated Ringer's 1,000 ml in 1,000 mls @ 150 mls/hr 05/02/18 12:23 05/02/18 13:15 Lactated Ringers Solution IV 150 mls/hr ASDIR [facility] Administration Vancomycin HCl 1,500 mg/ 500 mls @ 250 mls/hr 05/03/18 10:00 Dextrose IVPB Q24H [facility] Protocol Piperacillin Sod/Tazobactam 50 mls @ 100 mls/hr 05/02/18 22:00 Sod 3.375 gm/ Dextrose IVPB BID [facility] Protocol Lorazepam 1 mg 05/02/18 12:23 Ativan Injection - IVPUSH Q3H PRN ANXIETY Non-Formulary Medication 100 mg 05/02/18 12:23 Posaconazole [Noxafil] PO ASDIR [facility] Valacyclovir HCl 1,000 mg 05/03/18 10:00 Valtrex - PO DAILY [facility] ASSESSMENT/PLAN: Unfortunate 52 y/o man with h/o B cell lymphoma, with recent admission to [facility] for AMS, SAH, polymicrobial bacteremia (including MRSA ) and hematemesis. Presented to [facility] as he was found with AMS by his niece. He was found to have aplastic crisis. #Aplastic crisis likely 2/2 chemotherapy -s/p 4U pRBC, 1U pl upon admission -H/H today 7.1/21.1; Abs neuts 0.6 (05/01/18) -recheck CBC this evening. Goal Hgb >7, transfuse PRN -Neutropenic precautions -Check parvovirus B19 #Diffuse Large B Cell Lymphoma - hold chemotherapy agents -Per ID, cont Vanc 1500 mg/Zosyn 3.375 gm for broad spectrum coverage. Vanco trough today 14.5 -BCx (04/29) neg x48h; follow up final results -UCx neg FEN -NS @ 150 -Monitor Electrolytes -Soft Diet [facility] accepted patient. Waiting on bed availability. Visit type - Emergency Visit Emergency Visit: Yes ED Registration Date: 04/29/18 Care time: The patient presented to the Emergency Department on the above date and was hospitalized for further evaluation of their emergent condition. - New Patient This patient is new to me today: No - Critical Care Critical Care patient: Yes Total Critical Care Time (in minutes): 35 Critical Care Statement: The care of this patient involved high complexity decision making to prevent further life threatening deterioration of the patient 's condition and/or to evaluate & treat vital organ system(s) failure or risk of failure. - Discharge Referral Referred to [facility] No
[2018-05-03] MEDS: LACTATED RINGERS SOLUTION 1,000 ML/1,000 ML INFUS.BAG IV SCH ×2 (03:47→10:35)
--- NOTE | 2018-05-03 08:13 | PN ---
Teaching Attending Note Name of Resident: Rojelio Alonso ATTENDING PHYSICIAN STATEMENT I saw and evaluated the patient. I reviewed the resident's note and discussed the case with the resident. I agree with the resident's findings and plan as documented. SUBJECTIVE: Patient had fever overnight, no other complains. OBJECTIVE: Vital Signs Temperature 100.2 F H 05/03/18 06:30 Pulse Rate 115 H 05/03/18 05:30 Respiratory Rate 18 05/03/18 05:30 Blood Pressure 109/70 05/03/18 05:30 O2 Sat by Pulse Oximetry (%) 100 05/02/18 21:00 GENERAL: awake, alert, with no NAD, lying in bed HEAD: Atraumatic/Normocephalic EYES: EOMI, PERRLA NECK: Trachea midline, full range of motion, supple. LUNGS: decreased BS at basis otherwise clear HEART: Rachycardic, nl s1s2 ABDOMEN: Soft, NDNT EXTREMITIES: No CCE : [place] catheter CBCD WBC 0.9 K/mm3 (4.0-10.0) L* 05/03/18 09:00 RBC 2.46 M/mm3 (4.00-5.60) L 05/03/18 09:00 Hgb 7.1 GM/dL (11.7-16.9) L 05/03/18 09:00 Hct 19.8 % (35.4-49) L 05/03/18 09:00 MCV 80.4 fl (80-96) 05/03/18 09:00 MCHC 35.7 g/dl (32.0-35.9) 05/03/18 09:00 RDW 16.8 % (11.9-15.9) H 05/03/18 09:00 Plt Count 17 K/MM3 (134-434) L* D 05/03/18 09:00 MPV 8.1 fl (7.5-11.1) 05/03/18 09:00 CMP Sodium 138 mmol/L (136-145) 05/03/18 09:00 Potassium 3.3 mmol/L (3.5-5.1) L 05/03/18 09:00 Chloride 111 mmol/L (98-107) H 05/03/18 09:00 Carbon Dioxide 21 mmol/L (21-32) 05/03/18 09:00 Anion Gap 6 MMOL/L (8-16) L 05/03/18 09:00 BUN 7 mg/dL (7-18) 05/03/18 09:00 Creatinine 0.9 mg/dL (0.55-1.3) 05/03/18 09:00 Creat Clearance w eGFR 88.61 (>60) 05/03/18 09:00 Random Glucose 127 mg/dL (74-106) H 05/03/18 09:00 Calcium 7.8 mg/dL (8.5-10.1) L 05/03/18 09:00 Total Bilirubin 1.1 mg/dL (0.2-1) H 05/02/18 05:30 AST 15 U/L (15-37) 05/02/18 05:30 ALT 40 U/L (13-61) 05/02/18 05:30 Alkaline Phosphatase 130 U/L (45-117) H 05/02/18 05:30 Total Protein 4.6 g/dl (6.4-8.2) L 05/02/18 05:30 Albumin 2.3 g/dl (3.4-5.0) L 05/02/18 05:30 CARDIAC ENZYMES Troponin I < 0.02 ng/ml (0.00-0.05) 04/29/18 15:30 Current Medications Generic Name Dose Route Start Last Admin Trade Name Freq PRN Reason Stop Dose Admin Acetaminophen 1,000 mg 05/02/18 12:23 05/03/18 05:39 Ofirmev Injection - IVPB 1,000 mg Q6H PRN Administration PAIN LEVEL 7 - 10 Lactated Ringer's 1,000 ml in 1,000 mls @ 150 mls/hr 05/02/18 12:23 05/03/18 03:47 Lactated Ringers Solution IV 150 mls/hr ASDIR JAYLENE Administration Vancomycin HCl 1,500 mg/ 500 mls @ 250 mls/hr 05/03/18 10:00 Dextrose IVPB Q24H JAYLENE Protocol Piperacillin Sod/Tazobactam 50 mls @ 100 mls/hr 05/02/18 22:00 05/02/18 22:10 Sod 3.375 gm/ Dextrose IVPB 100 mls/hr BID JAYLENE Administration Protocol Lorazepam 1 mg 05/02/18 12:23 Ativan Injection - IVPUSH Q3H PRN ANXIETY Non-Formulary Medication 100 mg 05/02/18 12:23 Posaconazole [Noxafil] PO ASDIR JAYLENE Valacyclovir HCl 1,000 mg 05/03/18 10:00 Valtrex - PO DAILY [facility] Home Medications Medication Instructions Recorded Eltrombopag Olamine [Promacta] 50 mg PO DAILY 04/29/18 Filgrastim [Neupogen] 300 mcg IJ ASDIR 04/29/18 Filgrastim-Sndz [Zarxio] 300 mcg IJ ASDIR 04/29/18 Levofloxacin [Levaquin] 500 mg PO ASDIR 04/29/18 Posaconazole [Noxafil] 100 mg PO ASDIR 04/29/18 Valacyclovir HCl [Valtrex -] 1,000 mg PO ASDIR 04/29/18 Microbiology 04/29/18 15:30 Blood - Peripheral Venous Blood Culture - Preliminary NO GROWTH OBTAINED AFTER 72 HOURS, INCUBATION TO CONTINUE FOR 2 DAYS. 04/29/18 15:30 Blood - Peripheral Venous Blood Culture - Preliminary NO GROWTH OBTAINED AFTER 72 HOURS, INCUBATION TO CONTINUE FOR 2 DAYS. 04/29/18 15:25 Urine - Urine Clean Catch Urine Culture - Final NO GROWTH OBTAINED ASSESSMENT AND PLAN: Patient is a 52 y/o man with h/o B cell lymphoma, with recent admission to [facility] for AMS, SAH, polymicrobial bacteremia ( including MRSA ) and hematemesis. presented to ED. for having change of mental status, and was found to have aplastic crisis. # Aplastic crisis: parvovirus B19 pending, neutropenic precaution and isolation and diet, transfuse for Hb < 7 cont vanc and will add cefepime , id on the case, vanco trough , blood cx neg so far. will add neupogen to the regimen. # AMS most likely due to sepsis : improved , more awake and cooperative now hydrate and transfuse blood products as needed # Acute hypokalemia: will add KCL 40meq to NS at 100cc/hr x 2 liter, repeat K level in am. # Transaminitis: improved, will continue to trend Dispo: pending transfer to [facility] when bed is available DVT Px: SVDs , can't AC due to platelets of 17K
[2018-05-03 09:23] LABS: URINE APPEARANCE CLEAR; URINE BILIRUBIN NEGATIVE (NEGATIVE); URINE COLOR YELLOW; URINE GLUCOSE (UA) NEGATIVE (NEGATIVE); URINE KETONE NEGATIVE (NEGATIVE); URINE LEUK ESTERASE NEGATIVE (NEGATIVE); URINE NITRITE NEGATIVE (NEGATIVE); URINE PROTEIN NEGATIVE (NEGATIVE); URINE UROBILINOGEN 0.2 mg/dL (0.2-1.0)
[2018-05-03 09:40] LABS: BASO % 0.3 % (0-2.0); EOS % 3.1 % (0-4.5); HEMATOCRIT 19.8 % (35.4-49); HEMOGLOBIN 7.1 GM/dL (11.7-16.9); LYMPH % 22.4 % (8-40); MCH 28.7 pg (25.7-33.7); MCHC 35.7 g/dl (32.0-35.9); MEAN CELL VOLUME 80.4 fl (80-96); MEAN PLT VOLUME 8.1 fl (7.5-11.1); MONO % 10.8 % (3.8-10.2); NEUT % 63.4 % (42.8-82.8); RBC 2.46 M/mm3 (4.00-5.60); RDW 16.8 % (11.9-15.9)
[2018-05-03 10:14] LABS: PLATELET COUNT 17 K/MM3 (134-434); WHITE BLOOD COUNT 0.9 K/mm3 (4.0-10.0)
[2018-05-03] MEDS: PIPERACILLIN/TAZOB 3.375 GM 3.375 GM in DEXTROSE 5%-WATER - 50 ML IVPB SCH (10:17)
[2018-05-03 10:22] LABS: ANION GAP 6 MMOL/L (8-16); BLOOD UREA NITROGEN 7 mg/dL (7-18); CALCIUM 7.8 mg/dL (8.5-10.1); CHLORIDE 111 mmol/L (98-107); CO2 21 mmol/L (21-32); CREATININE 0.9 mg/dL (0.55-1.3); GLUCOSE,RANDOM 127 mg/dL (74-106); MAGNESIUM 1.6 mg/dL (1.8-2.4); PHOSPHOROUS 2.9 mg/dL (2.5-4.9); POTASSIUM 3.3 mmol/L (3.5-5.1); SODIUM 138 mmol/L (136-145)
[2018-05-03] MEDS: VANCOMYCIN HCL 1,500 MG in DEXTROSE 5%-WATER - 500 ML IVPB SCH (10:26)
[2018-05-03] MEDS: valACYclovir HCL 500 MG TABLET (FP) PO SCH (10:27)
[2018-05-03] MEDS ORDERED: CEFEPIME HCL/D5W 2 GM/50 ML BAG IVPB SCH ×2 (10:30→18:00)
[2018-05-03] MEDS ORDERED: CEFEPIME 2 GM in DEXTROSE 5%-WATER 100 ML IVPB SCH (10:30)
[2018-05-03] MEDS ORDERED: SODIUM CHLORIDE 1,000 ML with POTASSIUM CHLORIDE 40 MEQ IVPB SCH ×2 (11:00→12:15)
[2018-05-03] MEDS ORDERED: TBO-FILGRASTIM 300 MCG/0.5 ML DISP.SYRINGE SQ ONE (11:30)
[2018-05-03] MEDS ORDERED: DEXTROSE 5%-WATER 100 ML IVPB ONE (11:34)
[2018-05-03] MEDS ORDERED: CEFEPIME HCL 2 GM VIAL (RESTRICTED TO ID) ONE (11:34)
[2018-05-03] MEDS: ACETAMINOPHEN 325 MG TABLET (FP) PO PRN ×2 (11:36→21:23)
[2018-05-03] MEDS ORDERED: PIPERACILLIN/TAZOB 3.375 GM 3.375 GM in DEXTROSE 5%-WATER - 50 ML IVPB SCH (12:45)
--- NOTE | 2018-05-03 12:45 | PN ---
Progress Note, Physician History of Present Illness: patient started spiking fevers from last night patient is awake and alert family in room - Current Medication List Current Medications: Active Medications Acetaminophen (Ofirmev Injection -) 1,000 mg IVPB Q6H PRN PRN Reason: PAIN LEVEL 7 - 10 Last Admin: 05/03/18 05:39 Dose: 1,000 mg Acetaminophen (Tylenol -) 650 mg PO Q6H PRN PRN Reason: FEVER Last Admin: 05/03/18 11:36 Dose: 650 mg Vancomycin HCl 1,500 mg/ (Dextrose) 500 mls @ 250 mls/hr IVPB Q24H JAYLENE; Protocol Last Admin: 05/03/18 10:26 Dose: 250 mls/hr Cefepime HCl (Maxipime 2gm Ivpb (Premix)) 2 gm in 50 mls @ 100 mls/hr IVPB Q8H- IV JAYLENE; Protocol Cefepime HCl 2 gm/ Dextrose 100 mls @ 200 mls/hr IVPB Q8H-IV JAYLENE; Protocol Stop: 05/04/18 10:29 Last Admin: 05/03/18 11:37 Dose: 200 mls/hr Potassium Chloride 40 meq/ (Sodium Chloride) 1,020 mls @ 100 mls/hr IVPB Q10H JAYLENE Stop: 05/04/18 08:29 Piperacillin Sod/Tazobactam (Sod 3.375 gm/ Dextrose) 50 mls @ 100 mls/hr IVPB Q8H-IV JAYLENE; Protocol Lorazepam (Ativan Injection -) 1 mg IVPUSH Q3H PRN PRN Reason: ANXIETY Non-Formulary Medication (Posaconazole [Noxafil]) 100 mg PO ASDIR JAYLENE Valacyclovir HCl (Valtrex -) 1,000 mg PO DAILY JAYLENE Last Admin: 05/03/18 10:27 Dose: 1,000 mg - Objective Vital Signs: Vital Signs Temperature 101.8 F H 05/03/18 12:36 Pulse Rate 98 H 05/03/18 08:00 Respiratory Rate 05/03/18 08:00 Blood Pressure 102/64 05/03/18 08:00 O2 Sat by Pulse Oximetry (%) 100 05/02/18 21:00 Constitutional: Yes: No Distress, Calm HENT: Yes: Other Neck: Yes: Other (rt central line) Cardiovascular: Yes: Regular Rate and Rhythm Respiratory: Yes: Regular, Poor Air Entry Gastrointestinal: Yes: Normal Bowel Sounds, Soft Musculoskeletal: Yes: WNL Extremities: Yes: WNL Neurological: Yes: Alert, Oriented Labs: CBC, BMP 05/03/18 09:00 05/03/18 09:00 INR, PTT INR 1.20 (0.83-1.09) H 04/29/18 17:32 Assessment/Plan 52 yo M w/ pmhx of 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 Problem List - Problem (1) Aplastic anemia (2) B-cell lymphoma 3 sepsis 4 fever started to spike fever since last night plan will continue emelyn and ramiron await for repeat blood cx monitor fevers rest as per the team
[2018-05-03 13:10] LABS: ANISOCYTOSIS 0; HELMET CELLS 0; HOWELL-JOLLY BODIES 0; MACROCYTOSIS 0; OVALOCYTE 0; PLATELET ESTIMATE DECREASED; ROULEAU 0; SICKELED CELLS 0; TARGET CELLS 0; TEAR DROP CELLS 0; TOXIC GRANULATION 0
[2018-05-03] MEDS ORDERED: ACETAMINOPHEN 325 MG TABLET (FP) PO ONE (13:14)
[2018-05-03] MEDS: POTASSIUM CHLORIDE 40 MEQ in SODIUM CHLORIDE 1,000 ML IVPB SCH (13:25)
--- NOTE | 2018-05-03 14:26 | PN ---
Physical Exam: SUBJECTIVE: Patient seen and examined at bedside. febrile 102.5 early am. OBJECTIVE: Vital Signs Period Temp Pulse Resp BP Sys/Borjas Pulse Ox Last 24 Hr 99 F-102.5 F 82-115 17-19 101-113/64-70 100-100 GENERAL: AAOx3 NAD HEAD: Atraumatic/Normocephalic EYES: Scleral icterus NECK: Trachea midline, full range of motion, supple. LUNGS: Refused Lung exam HEART: RRR nl s1s2 ABDOMEN: Soft NDNT EXTREMITIES: No CCE Laboratory Results - last 24 hr 04/29/18 05/03/18 05/03/18 16:24 09:00 09:00 WBC 0.9 L* RBC 2.46 L Hgb 7.1 L Hct 19.8 L MCV 80.4 MCH 28.7 MCHC 35.7 RDW 16.8 H Plt Count 17 L* D MPV 8.1 Absolute Neuts (auto) 0.6 L Neutrophils % 63.4 Lymphocytes % 22.4 Monocytes % 10.8 H Eosinophils % 3.1 Basophils % 0.3 Nucleated RBC % 0 Sodium 138 Potassium 3.3 L Chloride 111 H Carbon Dioxide 21 Anion Gap 6 L BUN 7 Creatinine 0.9 Creat Clearance w eGFR 88.61 Random Glucose 127 H Calcium 7.8 L Phosphorus 2.9 Magnesium 1.6 L Urine Color Urine Appearance Urine pH Ur Specific [place] Urine Protein Urine Glucose (UA) Urine Ketones Urine Blood Urine Nitrite Urine Bilirubin Urine Urobilinogen Ur Leukocyte Esterase Blood Type A POSITIVE Antibody Screen Negative Crossmatch See Detail 05/03/18 09:00 WBC RBC Hgb Hct MCV MCH MCHC RDW Plt Count MPV Absolute Neuts (auto) Neutrophils % Lymphocytes % Monocytes % Eosinophils % Basophils % Nucleated RBC % Sodium Potassium Chloride Carbon Dioxide Anion Gap BUN Creatinine Creat Clearance w eGFR Random Glucose Calcium Phosphorus Magnesium Urine Color Yellow Urine Appearance Clear Urine pH 7.0 Ur Specific [place] 1.010 Urine Protein Negative Urine Glucose (UA) Negative Urine Ketones Negative Urine Blood Negative Urine Nitrite Negative Urine Bilirubin Negative Urine Urobilinogen 0.2 Ur Leukocyte Esterase Negative Blood Type Antibody Screen Crossmatch Active Medications Generic Name Dose Route Start Last Admin Trade Name Freq PRN Reason Stop Dose Admin Acetaminophen 1,000 mg 05/02/18 12:23 05/03/18 05:39 Ofirmev Injection - IVPB 1,000 mg Q6H PRN Administration PAIN LEVEL 7 - 10 Acetaminophen 650 mg 05/03/18 11:29 05/03/18 11:36 Tylenol - PO 650 mg Q6H PRN Administration FEVER Vancomycin HCl 1,500 mg/ 500 mls @ 250 mls/hr 05/03/18 10:00 05/03/18 10:26 Dextrose IVPB 250 mls/hr Q24H JAYLENE Administration Protocol Potassium Chloride 40 meq/ 1,020 mls @ 100 mls/hr 05/03/18 12:30 05/03/18 13: 25 Sodium Chloride IVPB 05/04/18 08:29 100 mls/hr Q10H JAYLENE Administration Meropenem 1 gm/ Dextrose 100 mls @ 200 mls/hr 05/03/18 18:00 IVPB Q8H-IV JAYLENE Lorazepam 1 mg 05/02/18 12:23 Ativan Injection - IVPUSH Q3H PRN ANXIETY Non-Formulary Medication 100 mg 05/02/18 12:23 Posaconazole [Noxafil] PO ASDIR JAYLENE Valacyclovir HCl 1,000 mg 05/03/18 10:00 05/03/18 10:27 Valtrex - PO 1,000 mg DAILY JAYLNEE Administration ASSESSMENT/PLAN: Unfortunate 52 y/o man with h/o B cell lymphoma, with recent admission to [facility] for AMS, SAH, polymicrobial bacteremia (including MRSA ) and hematemesis. Presented to [facility] as he was found with AMS by his niece. He was found to have aplastic crisis. #Aplastic crisis likely 2/2 chemotherapy -s/p 4U pRBC, 1U pl upon admission -H/H today 7.1/19.8; Abs neuts 0.6 (05/01/18) -Goal Hgb >7, transfuse PRN. -Neutropenic precautions -Check parvovirus B19 -Dr Leonard on board---> Plan for CT scans, repeat cultures- in future fungal cultures, Flu swab Will transfuse one unit of packed cells continue granix #Diffuse Large B Cell Lymphoma - hold chemotherapy agents -Per ID, Start Merrem. Received Cefepime earlier. Vanco trough 14.5. PER ID, continue Zosyn. Does not recommend Cefepime. -Repeat Blood and Urine cultures pending FEN - KCL 40meq to NS at 100cc/hr x 2 -Monitor Electrolytes -Soft Diet Dispo -Med-Surg Visit type - Emergency Visit Emergency Visit: Yes ED Registration Date: 04/29/18 Care time: The patient presented to the Emergency Department on the above date and was hospitalized for further evaluation of their emergent condition. - New Patient This patient is new to me today: No - Critical Care Critical Care patient: No - Discharge Referral Referred to [facility] Med P.C.: No
--- NOTE | 2018-05-03 15:23 | PN ---
Physical Exam: SUBJECTIVE: Patient seen and examined at bedside. No new complaints. denies chest pain, SOB, n/v/d/f/c. Apparently per primary team, refuses transfer to [facility]. OBJECTIVE: Vital Signs Period Temp Pulse Resp BP Sys/Borjas Pulse Ox Last 24 Hr 99 F-102.5 F 82-115 17-20 101-113/64-70 100-100 GENERAL: The patient is awake alert and oriented HEAD: Normal with no signs of trauma. EYES: Pupils equal, round and reactive to light ENT: poor dentition, otherwise normal oropharynx, no peticheae NECK: Trachea midline, full range of motion, supple, no masses palpated LUNGS: Breath sounds equal but coarse, no crackles noted bilaterally HEART: tachycardic without murmur ABDOMEN: Soft, nontender, nondistended, bowel sounds present, no masses palpated EXTREMITIES: 2+ pulses, warm, well-perfused, no edema. SKIN: Warm, dry, normal turgor, no rashes or lesions noted Laboratory Results - last 24 hr 04/29/18 05/03/18 05/03/18 16:24 09:00 09:00 WBC 0.9 L* RBC 2.46 L Hgb 7.1 L Hct 19.8 L MCV 80.4 MCH 28.7 MCHC 35.7 RDW 16.8 H Plt Count 17 L* D MPV 8.1 Absolute Neuts (auto) 0.6 L Neutrophils % 63.4 Neutrophils % (Manual) 69.4 D Band Neutrophils % 3.1 Lymphocytes % 22.4 Lymphocytes % (Manual) 21.4 Monocytes % 10.8 H Monocytes % (Manual) 4 Eosinophils % 3.1 Eosinophils % (Manual) 2.0 Basophils % 0.3 Basophils % (Manual) 0.0 Myelocytes % (Man) 0 Promyelocytes % (Man) 0 Blast Cells % (Manual) 0 D Nucleated RBC % 0 Metamyelocytes 0 Hypochromia 0 Toxic Granulation 0 Dohle Bodies 0 Platelet Estimate Decreased Polychromasia 0 Poikilocytosis 0 Basophilic Stippling 0 Anisocytosis 0 Microcytosis 0 Macrocytosis 0 Spherocytes 0 Sickle Cells 0 Target Cells 0 Tear Drop Cells 0 Ovalocytes 0 Stomatocytes 0 Helmet Cells 0 [place] Bodies 0 [place]ard[place] Rings 0 Laura Cells 0 Acanthocytes (Spur) 0 Rouleaux 0 Fragmented RBCs 0 Schistocytes 0 Sodium 138 Potassium 3.3 L Chloride 111 H Carbon Dioxide 21 Anion Gap 6 L BUN 7 Creatinine 0.9 Creat Clearance w eGFR 88.61 Random Glucose 127 H Calcium 7.8 L Phosphorus 2.9 Magnesium 1.6 L Urine Color Urine Appearance Urine pH Ur Specific [place] Urine Protein Urine Glucose (UA) Urine Ketones Urine Blood Urine Nitrite Urine Bilirubin Urine Urobilinogen Ur Leukocyte Esterase Blood Type A POSITIVE Antibody Screen Negative Crossmatch See Detail 05/03/18 09:00 WBC RBC Hgb Hct MCV MCH MCHC RDW Plt Count MPV Absolute Neuts (auto) Neutrophils % Neutrophils % (Manual) Band Neutrophils % Lymphocytes % Lymphocytes % (Manual) Monocytes % Monocytes % (Manual) Eosinophils % Eosinophils % (Manual) Basophils % Basophils % (Manual) Myelocytes % (Man) Promyelocytes % (Man) Blast Cells % (Manual) Nucleated RBC % Metamyelocytes Hypochromia Toxic Granulation Dohle Bodies Platelet Estimate Polychromasia Poikilocytosis Basophilic Stippling Anisocytosis Microcytosis Macrocytosis Spherocytes Sickle Cells Target Cells Tear Drop Cells Ovalocytes Stomatocytes Helmet Cells [place] Bodies [place] Rings Laura Cells Acanthocytes (Spur) Rouleaux Fragmented RBCs Schistocytes Sodium Potassium Chloride Carbon Dioxide Anion Gap BUN Creatinine Creat Clearance w eGFR Random Glucose Calcium Phosphorus Magnesium Urine Color Yellow Urine Appearance Clear Urine pH 7.0 Ur Specific [place] 1.010 Urine Protein Negative Urine Glucose (UA) Negative Urine Ketones Negative Urine Blood Negative Urine Nitrite Negative Urine Bilirubin Negative Urine Urobilinogen 0.2 Ur Leukocyte Esterase Negative Blood Type Antibody Screen Crossmatch Active Medications Generic Name Dose Route Start Last Admin Trade Name Leobardo PRN Reason Stop Dose Admin Acetaminophen 1,000 mg 05/02/18 12:23 05/03/18 05:39 Ofirmev Injection - IVPB 1,000 mg Q6H PRN Administration PAIN LEVEL 7 - 10 Acetaminophen 650 mg 05/03/18 11:29 05/03/18 11:36 Tylenol - PO 650 mg Q6H PRN Administration FEVER Vancomycin HCl 1,500 mg/ 500 mls @ 250 mls/hr 05/03/18 10:00 05/03/18 10:26 Dextrose IVPB 250 mls/hr Q24H JAYLENE Administration Protocol Potassium Chloride 40 meq/ 1,020 mls @ 100 mls/hr 05/03/18 12:30 05/03/18 13: 25 Sodium Chloride IVPB 05/04/18 08:29 100 mls/hr Q10H JAYLENE Administration Meropenem 1 gm/ Dextrose 100 mls @ 200 mls/hr 05/03/18 18:00 IVPB Q8H-IV JAYLENE Lorazepam 1 mg 05/02/18 12:23 Ativan Injection - IVPUSH Q3H PRN ANXIETY Non-Formulary Medication 100 mg 05/02/18 12:23 Posaconazole [Noxafil] PO ASDIR JAYLENE Valacyclovir HCl 1,000 mg 05/03/18 10:00 05/03/18 10:27 Valtrex - PO 1,000 mg DAILY JAYLENE Administration ASSESSMENT/PLAN: 52 year old male with a hx of 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 (most recently 02/15) with aplastic crisis presented for altered mental status, multiple falls Aplastic crisis: possibly secondary to bone marrow destruction from chemotherapy , absolute neutrophil still low with platelets of 17 -neutropenic precautions -s/p multiple transfusions -continue to transfuse to hgb goal of 7 -will give granix 300 today, and daily from now on -will give 1U PRBCs after tylenol -chest/abd pelvis CT -abx changed to meropenem due to fever overnight Neutropenic Fever: overnight, fever persists -abx changed to meropenem -CXR reviewed, follow cultures Altered Mental Status: possibly 2/2 infectious process and neutropenic fever head ct (-) for acute disease Continue to treat with abx 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 -chemo held due to low platelets/aplastic crisis -will need evaluation after acute symptoms resolve Hypokalemia replete potassium Hyperbilirubinemia: improving -continue to hydrate and transfuse prbcs Lactic Acidosis: resolved Pending transfer to [facility] (QUESTIONABLE) Thank you for this consultative opportunity, Elton Melchor, PGY2 Visit type - Emergency Visit Emergency Visit: No - New Patient This patient is new to me today: No - Critical Care Critical Care patient: No
--- NOTE | 2018-05-03 16:35 | PN ---
Teaching Attending Note Name of Resident: Elton Melchor ATTENDING PHYSICIAN STATEMENT I saw and evaluated the patient. I reviewed the resident's note and discussed the case with the resident. I agree with the resident's findings and plan as documented. SUBJECTIVE:Patient seen and examined Febrile on meripenem and vancomycin Offers no complaints but for 4 days of non productive hacking cough Last Vital Signs Temp Pulse Resp BP Pulse Ox 101.5 F H 104 H 20 107/69 100 05/03/18 14:27 05/03/18 14:00 05/03/18 14:00 05/03/18 14:00 05/02/18 21:00 HEENT: JULIO, EOM Intact Oropharynx: No thrush, No mucositis Neck: Supple Nodes: Without adenopathy Breasts: Without masses Cor: RSR, No murmurs, No gallops Lungs: Clear to P&A Abd: Soft, Normal bowel sounds, No organomegaly Ext:No significant edema Skin: No rashes, Integument intact catheter in right jugular testes descended uncircumcised Rectal- external hemorrhoid - no masses CBC, BMP 05/03/18 09:00 05/03/18 09:00 Current Medications Generic Name Dose Route Start Last Admin Trade Name Freq PRN Reason Stop Dose Admin Acetaminophen 1,000 mg 05/02/18 12:23 05/03/18 05:39 Ofirmev Injection - IVPB 1,000 mg Q6H PRN Administration PAIN LEVEL 7 - 10 Acetaminophen 650 mg 05/03/18 11:29 05/03/18 11:36 Tylenol - PO 650 mg Q6H PRN Administration FEVER Vancomycin HCl 1,500 mg/ 500 mls @ 250 mls/hr 05/03/18 10:00 05/03/18 10:26 Dextrose IVPB 250 mls/hr Q24H JAYLENE Administration Protocol Potassium Chloride 40 meq/ 1,020 mls @ 100 mls/hr 05/03/18 12:30 05/03/18 13: 25 Sodium Chloride IVPB 05/04/18 08:29 100 mls/hr Q10H JAYLENE Administration Meropenem 1 gm/ Dextrose 100 mls @ 200 mls/hr 05/03/18 18:00 IVPB Q8H-IV JAYLENE Lorazepam 1 mg 05/02/18 12:23 Ativan Injection - IVPUSH Q3H PRN ANXIETY Non-Formulary Medication 100 mg 05/02/18 12:23 Posaconazole [Noxafil] PO ASDIR JAYLENE Tbo-Filgrastim 300 mcg 05/04/18 10:00 Granix - SQ DAILY JAYLENE Valacyclovir HCl 1,000 mg 05/03/18 10:00 05/03/18 10:27 Valtrex - PO 1,000 mg DAILY JAYLENE Administration Impression: Hx of transformed lymphoma s/p chemotherapy with aplastic picture now febrile. No obvious source but for hacking non productive cough . Plan for CT scans, repeat cultures- in future fungal cultures, Flu swab Will transfuse one unit of packed cells and continue granix for now OBJECTIVE: ASSESSMENT AND PLAN:
[2018-05-03] MEDS ORDERED: ACETAMINOPHEN 650 MG/20.3 ML ORAL SOLUTION (CUPS) PO ONE (16:41)
[2018-05-03] MEDS ORDERED: PT OWN MED DRAWER 7, Y5N ONE (17:22)
[2018-05-03] MEDS: MEROPENEM 1 GM in DEXTROSE 5%-WATER 100 ML IVPB SCH (18:14)
[2018-05-03] MEDS ORDERED: CEFEPIME HCL/D5W 1 GM/50 ML BAG IVPB SCH (22:00)
[2018-05-03] MEDS ORDERED: POTASSIUM CHLORIDE 40 MEQ in SODIUM CHLORIDE 1,000 ML IVPB SCH (22:15)
[2018-05-04] MEDS: POTASSIUM CHLORIDE 40 MEQ in SODIUM CHLORIDE 1,000 ML IVPB SCH ×2 (01:47→17:22)
[2018-05-04] MEDS: MEROPENEM 1 GM in DEXTROSE 5%-WATER 100 ML IVPB SCH ×3 (02:28→17:07)
[2018-05-04] MEDS ORDERED: PT OWN MED DRAWER 7, Y5N ONE ×3 (03:27→17:00)
[2018-05-04] MEDS: ACETAMINOPHEN 325 MG TABLET (FP) PO PRN ×2 (06:46→17:48)
[2018-05-04 07:28] LABS: BASO % 0.1 % (0-2.0); EOS % 2.5 % (0-4.5); HEMATOCRIT 24.5 % (35.4-49); HEMOGLOBIN 8.3 GM/dL (11.7-16.9); LYMPH % 14.8 % (8-40); MCH 27.7 pg (25.7-33.7); MCHC 33.7 g/dl (32.0-35.9); MEAN CELL VOLUME 82.1 fl (80-96); MEAN PLT VOLUME 8.8 fl (7.5-11.1); NEUT % 68.6 % (42.8-82.8); RBC 2.98 M/mm3 (4.00-5.60); RDW 16.4 % (11.9-15.9)
[2018-05-04 07:57] LABS: INR 1.24 (0.83-1.09); PROTHROMBIN TIME (PATIENT) 14.7 SEC (9.7-13.0)
[2018-05-04 07:58] LABS: WHITE BLOOD COUNT 1.4 K/mm3 (4.0-10.0)
[2018-05-04 07:59] LABS: PLATELET COUNT 12 K/MM3 (134-434)
[2018-05-04 08:00] LABS: ALBUMIN 2.6 g/dl (3.4-5.0); ALK PHOS 125 U/L (45-117); ANION GAP 11 MMOL/L (8-16); BILIRUBIN,TOTAL 1.4 mg/dL (0.2-1); BLOOD UREA NITROGEN 7 mg/dL (7-18); CALCIUM 7.4 mg/dL (8.5-10.1); CHLORIDE 108 mmol/L (98-107); CO2 22 mmol/L (21-32); CREATININE 0.8 mg/dL (0.55-1.3); GLUCOSE,RANDOM 91 mg/dL (74-106); LDH 143 U/L (87-246); MAGNESIUM 1.1 mg/dL (1.8-2.4); PHOSPHOROUS 3.3 mg/dL (2.5-4.9); SGOT/AST 10 U/L (15-37); SGPT/ALT 29 U/L (13-61); SODIUM 141 mmol/L (136-145); TOT PROT 5.3 g/dl (6.4-8.2); URIC ACID 2.8 mg/dL (2.6-7.2)
[2018-05-04 08:14] LABS: POTASSIUM 2.9 mmol/L (3.5-5.1)
[2018-05-04] MEDS ORDERED: SODIUM CHLORIDE 500 ML IV STA (08:31)
[2018-05-04] MEDS ORDERED: POTASSIUM CHLORIDE TABS 20 MEQ TABLET.ER (FP) PO ONE (09:00)
[2018-05-04] MEDS ORDERED: SODIUM CHLORIDE 250 ML IV STA (09:01)
[2018-05-04] MEDS: KCL 10 MEQ IVPB 10 MEQ/100 ML INFUS.BAG IVPB SCH ×5 (09:14→20:22)
[2018-05-04] MEDS ORDERED: MAGNESIUM SULF 50% (8.12 MEQ/2 ML-1 GM VIAL) IVPB ONE ×2 (10:00→18:00)
[2018-05-04] MEDS: valACYclovir HCL 500 MG TABLET (FP) PO SCH (10:27)
[2018-05-04] MEDS ORDERED: SODIUM CHLORIDE 0.9%/KCL 20 MEQ/1,000 ML INFUS.BAG IV SCH ×2 (10:30→10:35)
[2018-05-04] MEDS ORDERED: SODIUM CHLORIDE 1,000 ML IV SCH ×2 (10:30)
--- NOTE | 2018-05-04 10:45 | PN ---
Progress Note (short form) - Note Progress Note: Recalled for ICU evaluation for low BP this morning. 52 yr old man with DLBCL on Chemo presented with aplastic crisis initially treated in the ICU with prbc's and platelet transfusions was stable for transfer to medical floor on 05/02. Currently found to be febrile, hypotensive, thrombocytopenic, hypokalemic and have a mary jo-anal abscess on abd/pelvis CT. Pt was being transferred to [facility] under the oncology service for further management however, pt apparently refused the transfer. pt examined at bedside, awake alert, resting comfortably in bed, luxem[place]ish speaking, oriented to person, place, not date(thinks its 2017) lungs: quiet bases, no wheezing, no crackles sclera appears mildly yellow CV: s1, s2 abd: soft, nondistended, nontender ext: no LE edema, freely moving all extremities speech is clear, facial symmetry 52 yr old man with aplastic crisis found to have perianal abscess, likely cause of fever. Recommend: - IVFs, trial boluses for volume resuscitation(likely multifactorial from volume depletion from poor po intake/insensible losses from fever/infection) - replete hypokalemia - surgical evaluation for abscess drainage - replete platelets - IV tylenol as antipyretic Pt responded well to initial bolus I ordered earlier with improved BP. Pt currently stable for medical floor monitoring. will reevaluate if pt's status changes.
[2018-05-04 11:26] LABS: ANISOCYTOSIS 1+; MACROCYTOSIS 0; PLATELET ESTIMATE DECREASED
[2018-05-04] MEDS: VANCOMYCIN HCL 1,500 MG in DEXTROSE 5%-WATER - 500 ML IVPB SCH (14:33)
--- NOTE | 2018-05-04 14:43 | PN ---
Physical Exam: SUBJECTIVE: Patient seen and examined at bedside. been febrile ovn. Did not receive the unit of platelets last night. Denies any current complaints. OBJECTIVE: Vital Signs Period Temp Pulse Resp BP Sys/Borjas Pulse Ox Last 24 Hr 98 F-102.8 F 88-116 18-20 88-123/41-76 100 GENERAL: The patient is awake alert and oriented HEAD: Normal with no signs of trauma. EYES: Pupils equal, round and reactive to light ENT: poor dentition, otherwise normal oropharynx, no peticheae NECK: Trachea midline, full range of motion, supple, no masses palpated LUNGS: Breath sounds equal but coarse, no crackles noted bilaterally HEART: tachycardic without murmur ABDOMEN: Soft, nontender, nondistended, bowel sounds present, no masses palpated EXTREMITIES: 2+ pulses, warm, well-perfused, no edema. SKIN: Warm, dry, normal turgor, no rashes or lesions noted Laboratory Results - last 24 hr 04/29/18 05/03/18 05/04/18 16:24 19:00 06:30 WBC 1.4 L* RBC 2.98 L Hgb 8.3 L Hct 24.5 L D MCV 82.1 MCH 27.7 MCHC 33.7 RDW 16.4 H Plt Count 12 L* D MPV 8.8 Absolute Neuts (auto) 0.9 L Neutrophils % 68.6 Neutrophils % (Manual) 58.4 Band Neutrophils % 9.9 Lymphocytes % 14.8 D Lymphocytes % (Manual) 18.8 Monocytes % 14.0 H Monocytes % (Manual) 9 D Eosinophils % 2.5 Eosinophils % (Manual) 3.0 Basophils % 0.1 Basophils % (Manual) 0.0 Myelocytes % (Man) 0 Promyelocytes % (Man) 0 Blast Cells % (Manual) 0 Nucleated RBC % 0 Metamyelocytes 1 D Hypochromia 0 Platelet Estimate Decreased Polychromasia 0 Poikilocytosis 0 Anisocytosis 1+ Microcytosis 1+ Macrocytosis 0 PT with INR INR Sodium Potassium Chloride Carbon Dioxide Anion Gap BUN Creatinine Creat Clearance w eGFR Random Glucose Uric Acid Calcium Phosphorus Magnesium Total Bilirubin AST ALT Alkaline Phosphatase LD Total Total Protein Albumin Blood Type A POSITIVE A POSITIVE Antibody Screen Negative Negative Crossmatch See Detail See Detail 05/04/18 05/04/18 06:30 07:00 WBC RBC Hgb Hct MCV MCH MCHC RDW Plt Count MPV Absolute Neuts (auto) Neutrophils % Neutrophils % (Manual) Band Neutrophils % Lymphocytes % Lymphocytes % (Manual) Monocytes % Monocytes % (Manual) Eosinophils % Eosinophils % (Manual) Basophils % Basophils % (Manual) Myelocytes % (Man) Promyelocytes % (Man) Blast Cells % (Manual) Nucleated RBC % Metamyelocytes Hypochromia Platelet Estimate Polychromasia Poikilocytosis Anisocytosis Microcytosis Macrocytosis PT with INR 14.70 H INR 1.24 H Sodium 141 Potassium 2.9 L* Chloride 108 H Carbon Dioxide 22 Anion Gap 11 BUN 7 Creatinine 0.8 Creat Clearance w eGFR 101.51 Random Glucose 91 Uric Acid 2.8 Calcium 7.4 L Phosphorus 3.3 Magnesium 1.1 L Total Bilirubin 1.4 H AST 10 L ALT 29 Alkaline Phosphatase 125 H LD Total 143 Total Protein 5.3 L Albumin 2.6 L Blood Type Antibody Screen Crossmatch Active Medications Generic Name Dose Route Start Last Admin Trade Name Freq PRN Reason Stop Dose Admin Acetaminophen 1,000 mg 05/02/18 12:23 05/03/18 05:39 Ofirmev Injection - IVPB 1,000 mg Q6H PRN Administration PAIN LEVEL 7 - 10 Acetaminophen 650 mg 05/03/18 11:29 05/04/18 06:46 Tylenol - PO 650 mg Q6H PRN Administration FEVER Vancomycin HCl 1,500 mg/ 500 mls @ 250 mls/hr 05/03/18 10:00 05/04/18 14:33 Dextrose IVPB 250 mls/hr Q24H JAYLENE Administration Protocol Meropenem 1 gm/ Dextrose 100 mls @ 200 mls/hr 05/03/18 18:00 05/04/18 10:27 IVPB 200 mls/hr Q8H-IV JAYLENE Administration Metronidazole 500 mg in 100 mls @ 100 mls/hr 05/03/18 19:00 05/04/18 08:28 Flagyl 500mg Premixed Ivpb - IVPB 100 mls/hr Q6H-IV JAYLENE Administration Potassium Chloride/Sodium Chloride 20 meq in 1,000 mls @ 100 mls/hr 05/04/18 10:35 Ns+20 Meq Kcl - IV ASDIR JAYLENE Lorazepam 1 mg 05/02/18 12:23 Ativan Injection - IVPUSH Q3H PRN ANXIETY Non-Formulary Medication 100 mg 05/02/18 12:23 Posaconazole [Noxafil] PO ASDIR JAYLENE Tbo-Filgrastim 300 mcg 05/04/18 10:00 Granix - SQ DAILY JAYLENE Valacyclovir HCl 1,000 mg 05/03/18 10:00 05/04/18 10:27 Valtrex - PO 1,000 mg DAILY JAYLENE Administration ASSESSMENT/PLAN: 52 year old male with a hx of 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 (most recently 02/15) with aplastic crisis presented for altered mental status, multiple falls Aplastic crisis: possibly secondary to bone marrow destruction from chemotherapy , absolute neutrophil still low with platelets of 17 -neutropenic precautions -s/p multiple transfusions -continue to transfuse to hgb goal of 7 -will give granix 300 for another 24 hours -chest/abd pelvis CT shows PNA and perirenal abscess extending to anus -transfuse platelets Neutropenic Sepsis: fever persists today, likely 2/2 perirenal abscess -continue meropenem and vancomycin -follow cultures -monitor vital signs -consider antifungals Altered Mental Status: resolved head ct (-) for acute disease Continue to treat with abx 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
--- NOTE | 2018-05-04 14:51 | PN ---
Progress Note, Physician History of Present Illness: spiking fevers no new issues - Current Medication List Current Medications: Active Medications Acetaminophen (Ofirmev Injection -) 1,000 mg IVPB Q6H PRN PRN Reason: PAIN LEVEL 7 - 10 Last Admin: 05/03/18 05:39 Dose: 1,000 mg Acetaminophen (Tylenol -) 650 mg PO Q6H PRN PRN Reason: FEVER Last Admin: 05/04/18 06:46 Dose: 650 mg Vancomycin HCl 1,500 mg/ (Dextrose) 500 mls @ 250 mls/hr IVPB Q24H JAYLENE; Protocol Last Admin: 05/04/18 14:33 Dose: 250 mls/hr Meropenem 1 gm/ Dextrose 100 mls @ 200 mls/hr IVPB Q8H-IV JAYLENE Last Admin: 05/04/18 10:27 Dose: 200 mls/hr Metronidazole (Flagyl 500mg Premixed Ivpb -) 500 mg in 100 mls @ 100 mls/hr IVPB Q6H-IV JAYLENE Last Admin: 05/04/18 08:28 Dose: 100 mls/hr Potassium Chloride/Sodium Chloride (Ns+20 Meq Kcl -) 20 meq in 1,000 mls @ 100 mls/hr IV ASDIR JAYLENE Lorazepam (Ativan Injection -) 1 mg IVPUSH Q3H PRN PRN Reason: ANXIETY Non-Formulary Medication (Posaconazole [Noxafil]) 100 mg PO ASDIR JAYLENE Tbo-Filgrastim (Granix -) 300 mcg SQ DAILY JAYLENE Valacyclovir HCl (Valtrex -) 1,000 mg PO DAILY [facility] Last Admin: 05/04/18 10:27 Dose: 1,000 mg - Objective Vital Signs: Vital Signs Temperature 99.4 F 05/04/18 13:10 Pulse Rate 95 H 05/04/18 13:10 Respiratory Rate 18 05/04/18 13:10 Blood Pressure 105/76 05/04/18 13:10 O2 Sat by Pulse Oximetry (%) 100 05/03/18 21:00 Constitutional: Yes: No Distress, Calm Cardiovascular: Yes: Regular Rate and Rhythm Respiratory: Yes: Regular, CTA Bilaterally Gastrointestinal: Yes: Normal Bowel Sounds, Soft Musculoskeletal: Yes: WNL Extremities: Yes: WNL Neurological: Yes: Alert, Oriented Psychiatric: Yes: Alert, Oriented Labs: CBC, BMP 05/04/18 06:30 03/28/19 07:00 INR, PTT INR 1.24 (0.83-1.09) H 05/04/18 06:30 Assessment/Plan 52 yo M w/ pmhx of 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 Problem List - Problem (1) Aplastic anemia (2) B-cell lymphoma 3 sepsis 4 fever plan continue vanco and joshua if patient continues to spike might add antifungal tomorrow rest as per the team follow vanco levels
--- NOTE | 2018-05-04 17:01 | PN ---
Physical Exam: SUBJECTIVE: Patient seen and examined at bedside. Endorses feeling well, eating lunch. Friend at bedside. OBJECTIVE: Vital Signs Period Temp Pulse Resp BP Sys/Borjas Pulse Ox Last 24 Hr 98 F-102.8 F 88-116 18-20 88-123/41-76 100 GENERAL: No acute distress. AAOx2. HEAD: Atraumatic/Normocephalic EYES: Scleral icterus EOMI NECK: Trachea midline, full range of motion, supple. LUNGS: Refused Lung exam HEART: RRR nl s1s2 ABDOMEN: Soft NDNT EXTREMITIES: No CCE Laboratory Results - last 24 hr 04/29/18 05/03/18 05/04/18 16:24 19:00 06:30 WBC 1.4 L* RBC 2.98 L Hgb 8.3 L Hct 24.5 L D MCV 82.1 MCH 27.7 MCHC 33.7 RDW 16.4 H Plt Count 12 L* D MPV 8.8 Absolute Neuts (auto) 0.9 L Neutrophils % 68.6 Neutrophils % (Manual) 58.4 Band Neutrophils % 9.9 Lymphocytes % 14.8 D Lymphocytes % (Manual) 18.8 Monocytes % 14.0 H Monocytes % (Manual) 9 D Eosinophils % 2.5 Eosinophils % (Manual) 3.0 Basophils % 0.1 Basophils % (Manual) 0.0 Myelocytes % (Man) 0 Promyelocytes % (Man) 0 Blast Cells % (Manual) 0 Nucleated RBC % 0 Metamyelocytes 1 D Hypochromia 0 Platelet Estimate Decreased Polychromasia 0 Poikilocytosis 0 Anisocytosis 1+ Microcytosis 1+ Macrocytosis 0 PT with INR INR Sodium Potassium Chloride Carbon Dioxide Anion Gap BUN Creatinine Creat Clearance w eGFR Random Glucose Uric Acid Calcium Phosphorus Magnesium Total Bilirubin AST ALT Alkaline Phosphatase LD Total Total Protein Albumin Blood Type A POSITIVE A POSITIVE Antibody Screen Negative Negative Crossmatch See Detail See Detail 05/04/18 05/04/18 06:30 07:00 WBC RBC Hgb Hct MCV MCH MCHC RDW Plt Count MPV Absolute Neuts (auto) Neutrophils % Neutrophils % (Manual) Band Neutrophils % Lymphocytes % Lymphocytes % (Manual) Monocytes % Monocytes % (Manual) Eosinophils % Eosinophils % (Manual) Basophils % Basophils % (Manual) Myelocytes % (Man) Promyelocytes % (Man) Blast Cells % (Manual) Nucleated RBC % Metamyelocytes Hypochromia Platelet Estimate Polychromasia Poikilocytosis Anisocytosis Microcytosis Macrocytosis PT with INR 14.70 H INR 1.24 H Sodium 141 Potassium 2.9 L* Chloride 108 H Carbon Dioxide 22 Anion Gap 11 BUN 7 Creatinine 0.8 Creat Clearance w eGFR 101.51 Random Glucose 91 Uric Acid 2.8 Calcium 7.4 L Phosphorus 3.3 Magnesium 1.1 L Total Bilirubin 1.4 H AST 10 L ALT 29 Alkaline Phosphatase 125 H LD Total 143 Total Protein 5.3 L Albumin 2.6 L Blood Type Antibody Screen Crossmatch Active Medications Generic Name Dose Route Start Last Admin Trade Name Freq PRN Reason Stop Dose Admin Acetaminophen 1,000 mg 05/02/18 12:23 05/03/18 05:39 Ofirmev Injection - IVPB 1,000 mg Q6H PRN Administration PAIN LEVEL 7 - 10 Acetaminophen 650 mg 05/03/18 11:29 05/04/18 06:46 Tylenol - PO 650 mg Q6H PRN Administration FEVER Vancomycin HCl 1,500 mg/ 500 mls @ 250 mls/hr 05/03/18 10:00 05/04/18 14:33 Dextrose IVPB 250 mls/hr Q24H JAYLENE Administration Protocol Meropenem 1 gm/ Dextrose 100 mls @ 200 mls/hr 05/03/18 18:00 05/04/18 10:27 IVPB 200 mls/hr Q8H-IV JAYLENE Administration Metronidazole 500 mg in 100 mls @ 100 mls/hr 05/03/18 19:00 05/04/18 08:28 Flagyl 500mg Premixed Ivpb - IVPB 100 mls/hr Q6H-IV JAYLENE Administration Potassium Chloride/Sodium Chloride 20 meq in 1,000 mls @ 100 mls/hr 05/04/18 10:35 Ns+20 Meq Kcl - IV ASDIR JAYLENE Lorazepam 1 mg 05/02/18 12:23 Ativan Injection - IVPUSH Q3H PRN ANXIETY Non-Formulary Medication 100 mg 05/02/18 12:23 Posaconazole [Noxafil] PO ASDIR JAYLENE Tbo-Filgrastim 300 mcg 05/04/18 10:00 Granix - SQ DAILY JAYLENE Valacyclovir HCl 1,000 mg 05/03/18 10:00 05/04/18 10:27 Valtrex - PO 1,000 mg DAILY JAYLENE Administration ASSESSMENT/PLAN: Unfortunate 52 y/o man with h/o B cell lymphoma, with recent admission to [facility] for AMS, SAH, polymicrobial bacteremia (including MRSA ) and hematemesis. Presented to [facility] as he was found with AMS by his niece. He was found to have aplastic crisis. #Aplastic crisis likely 2/2 chemotherapy -s/p 4U pRBC, 1U pl upon admission -H/H today 7.3/21.3; Abs neuts 0.9 (05/04/18) -Goal Hgb >7, transfuse PRN. -Neutropenic precautions -Check parvovirus B19 -Dr Leonard on board -CTAP--> PNA and perirenal abscess extending to anus continue granix If pt continues to spike fevers, will add antifungal tomorrow #Diffuse Large B Cell Lymphoma - hold chemotherapy agents -Per ID, Merrem and Vanco -Blood and Urine Cultures negative FEN -KCL 40meq to NS at 100cc/hr x 2 -Monitor Electrolytes -Soft Diet Dispo -Med-Surg Visit type - Emergency Visit Emergency Visit: Yes ED Registration Date: 04/29/18 Care time: The patient presented to the Emergency Department on the above date and was hospitalized for further evaluation of their emergent condition. - New Patient This patient is new to me today: No - Critical Care Critical Care patient: No - Discharge Referral Referred to [facility] No
[2018-05-04] MEDS: TBO-FILGRASTIM 300 MCG/0.5 ML DISP.SYRINGE SQ SCH (17:07)
[2018-05-04] MEDS ORDERED: SODIUM CHLORIDE 1,000 ML with POTASSIUM CHLORIDE 40 MEQ IVPB SCH (17:15)
--- NOTE | 2018-05-04 17:29 | PN ---
Teaching Attending Note Name of Resident: Rojelio Alonso ATTENDING PHYSICIAN STATEMENT I saw and evaluated the patient. I reviewed the resident's note and discussed the case with the resident. I agree with the resident's findings and plan as documented. SUBJECTIVE: Patient is feeling better with no acute distress, patient feels better. OBJECTIVE: Vital Signs Temperature 102.1 F H 05/04/18 16:40 Pulse Rate 111 H 05/04/18 16:40 Respiratory Rate 18 05/04/18 16:40 Blood Pressure 126/79 05/04/18 16:40 O2 Sat by Pulse Oximetry (%) 100 05/03/18 21:00 GENERAL: awake, alert, with no NAD, lying in bed HEAD: Atraumatic/Normocephalic EYES: EOMI, PERRLA NECK: Trachea midline, full range of motion, supple. LUNGS: decreased BS at basis otherwise clear HEART: tachycardic, nl s1s2 ABDOMEN: Soft, ND, NT EXTREMITIES: No CCE : [place] catheter CBCD WBC 1.4 K/mm3 (4.0-10.0) L* 05/04/18 06:30 RBC 2.98 M/mm3 (4.00-5.60) L 05/04/18 06:30 Hgb 8.3 GM/dL (11.7-16.9) L 05/04/18 06:30 Hct 24.5 % (35.4-49) L D 05/04/18 06:30 MCV 82.1 fl (80-96) 05/04/18 06:30 MCHC 33.7 g/dl (32.0-35.9) 05/04/18 06:30 RDW 16.4 % (11.9-15.9) H 05/04/18 06:30 Plt Count 12 K/MM3 (134-434) L* D 05/04/18 06:30 MPV 8.8 fl (7.5-11.1) 05/04/18 06:30 CMP Sodium 141 mmol/L (136-145) 05/04/18 07:00 Potassium 2.9 mmol/L (3.5-5.1) L* 05/04/18 07:00 Chloride 108 mmol/L (98-107) H 05/04/18 07:00 Carbon Dioxide 22 mmol/L (21-32) 05/04/18 07:00 Anion Gap 11 MMOL/L (8-16) 05/04/18 07:00 BUN 7 mg/dL (7-18) 05/04/18 07:00 Creatinine 0.8 mg/dL (0.55-1.3) 05/04/18 07:00 Creat Clearance w eGFR 101.51 (>60) 05/04/18 07:00 Random Glucose 91 mg/dL (74-106) 05/04/18 07:00 Calcium 7.4 mg/dL (8.5-10.1) L 05/04/18 07:00 Total Bilirubin 1.4 mg/dL (0.2-1) H 05/04/18 07:00 AST 10 U/L (15-37) L 05/04/18 07:00 ALT 29 U/L (13-61) 05/04/18 07:00 Alkaline Phosphatase 125 U/L (45-117) H 05/04/18 07:00 Total Protein 5.3 g/dl (6.4-8.2) L 05/04/18 07:00 Albumin 2.6 g/dl (3.4-5.0) L 05/04/18 07:00 CARDIAC ENZYMES Troponin I < 0.02 ng/ml (0.00-0.05) 04/29/18 15:30 Current Medications Generic Name Dose Route Start Last Admin Trade Name Freq PRN Reason Stop Dose Admin Acetaminophen 1,000 mg 05/02/18 12:23 05/03/18 05:39 Ofirmev Injection - IVPB 1,000 mg Q6H PRN Administration PAIN LEVEL 7 - 10 Acetaminophen 650 mg 05/03/18 11:29 05/04/18 06:46 Tylenol - PO 650 mg Q6H PRN Administration FEVER Vancomycin HCl 1,500 mg/ 500 mls @ 250 mls/hr 05/03/18 10:00 05/04/18 14:33 Dextrose IVPB 250 mls/hr Q24H JAYELNE Administration Protocol Meropenem 1 gm/ Dextrose 100 mls @ 200 mls/hr 05/03/18 18:00 05/04/18 17:07 IVPB 200 mls/hr Q8H-IV JAYLENE Administration Metronidazole 500 mg in 100 mls @ 100 mls/hr 05/03/18 19:00 05/04/18 17:07 Flagyl 500mg Premixed Ivpb - IVPB 100 mls/hr Q6H-IV JAYLENE Administration Potassium Chloride 40 meq/ 1,020 mls @ 100 mls/hr 05/04/18 17:15 05/04/18 17: 22 Sodium Chloride IVPB Not Given Q10H JAYLENE Lorazepam 1 mg 05/02/18 12:23 Ativan Injection - IVPUSH Q3H PRN ANXIETY Non-Formulary Medication 100 mg 05/02/18 12:23 Posaconazole [Noxafil] PO ASDIR JAYLENE Tbo-Filgrastim 300 mcg 05/04/18 10:00 05/04/18 17:07 Granix - SQ 300 mcg DAILY JAYLENE Administration Valacyclovir HCl 1,000 mg 05/03/18 10:00 05/04/18 10:27 Valtrex - PO 1,000 mg DAILY JAYLENE Administration Current Medications Generic Name Dose Route Start Last Admin Trade Name Freq PRN Reason Stop Dose Admin Acetaminophen 1,000 mg 05/02/18 12:23 05/03/18 05:39 Ofirmev Injection - IVPB 1,000 mg Q6H PRN Administration PAIN LEVEL 7 - 10 Acetaminophen 650 mg 05/03/18 11:29 05/04/18 06:46 Tylenol - PO 650 mg Q6H PRN Administration FEVER Vancomycin HCl 1,500 mg/ 500 mls @ 250 mls/hr 05/03/18 10:00 05/04/18 14:33 Dextrose IVPB 250 mls/hr Q24H JAYLENE Administration Protocol Meropenem 1 gm/ Dextrose 100 mls @ 200 mls/hr 05/03/18 18:00 05/04/18 17:07 IVPB 200 mls/hr Q8H-IV JAYLENE Administration Metronidazole 500 mg in 100 mls @ 100 mls/hr 05/03/18 19:00 05/04/18 17:07 Flagyl 500mg Premixed Ivpb - IVPB 100 mls/hr Q6H-IV JAYLENE Administration Potassium Chloride 40 meq/ 1,020 mls @ 100 mls/hr 05/04/18 17:15 05/04/18 17: 22 Sodium Chloride IVPB Not Given Q10H JAYLENE Lorazepam 1 mg 05/02/18 12:23 Ativan Injection - IVPUSH Q3H PRN ANXIETY Non-Formulary Medication 100 mg 05/02/18 12:23 Posaconazole [Noxafil] PO ASDIR JAYLENE Tbo-Filgrastim 300 mcg 05/04/18 10:00 05/04/18 17:07 Granix - SQ 300 mcg DAILY JAYLENE Administration Valacyclovir HCl 1,000 mg 05/03/18 10:00 05/04/18 10:27 Valtrex - PO 1,000 mg DAILY JAYLENE Administration Home Medications Medication Instructions Recorded Eltrombopag Olamine [Promacta] 50 mg PO DAILY 04/29/18 Filgrastim [Neupogen] 300 mcg IJ ASDIR 04/29/18 Filgrastim-Sndz [Zarxio] 300 mcg IJ ASDIR 04/29/18 Levofloxacin [Levaquin] 500 mg PO ASDIR 04/29/18 Posaconazole [Noxafil] 100 mg PO ASDIR 04/29/18 Valacyclovir HCl [Valtrex -] 1,000 mg PO ASDIR 04/29/18 Microbiology 04/29/18 15:30 Blood - Peripheral Venous Blood Culture - Final NO GROWTH AFTER 5 DAYS INCUBATION 04/29/18 15:30 Blood - Peripheral Venous Blood Culture - Final NO GROWTH AFTER 5 DAYS INCUBATION 05/03/18 09:15 Blood - Peripheral Venous Blood Culture - Preliminary NO GROWTH OBTAINED AFTER 24 HOURS, INCUBATION TO CONTINUE FOR 4 DAYS. 05/03/18 09:00 Blood - Peripheral Venous Blood Culture - Preliminary NO GROWTH OBTAINED AFTER 24 HOURS, INCUBATION TO CONTINUE FOR 4 DAYS. 05/03/18 09:00 Urine - Urine Clean Catch Urine Culture - Final 04/29/18 15:25 Urine - Urine Clean Catch Urine Culture - Final NO GROWTH OBTAINED ASSESSMENT AND PLAN: Patient is a 52 y/o man with h/o B cell lymphoma, with recent admission to [facility] for AMS, SAH, polymicrobial bacteremia ( including MRSA ) and hematemesis. presented to ED. for having change of mental status, and was found to have aplastic crisis. # Posterior Bibasilar infiltrates on IV antibiotics # Interstitial infiltrate on IV antibiotic # Left upper lobe cavitary lesions # Acute left perianal abscess (2.3x1.7x0.7) # moderate to marked prostate enlargement #mild splenomegaly # Aplastic crisis: parvovirus B19 pending, neutropenic precaution and isolation and diet, s/p transfusion 5 packed of RBC, one unit of platelets, transfuse for Hb < 7 . cont vanc and meropenem , Dr Harrell; id on the case, vanco trough , so far the culture is negative, blood cx neg so far. continue neupogen daily. # AMS most likely due to sepsis : improved , more awake and cooperative now # Acute hypokalemia: KCL 40meq to NS at 100cc/hr x 2 liter, repeat K level in am. # Transaminitis: improved, will continue to trend Dispo: pending transfer to [facility] when bed is available DVT Px: SVDs , can't AC due to platelets of 17K-->12K
[2018-05-04 17:52] LABS: BASO % 0.2 % (0-2.0); EOS % 2.7 % (0-4.5); HEMATOCRIT 21.3 % (35.4-49); HEMOGLOBIN 7.3 GM/dL (11.7-16.9); LYMPH % 18.1 % (8-40); MCH 28.3 pg (25.7-33.7); MCHC 34.5 g/dl (32.0-35.9); MEAN CELL VOLUME 82.1 fl (80-96); MEAN PLT VOLUME 7.5 fl (7.5-11.1); MONO % 11.8 % (3.8-10.2); NEUT % 67.2 % (42.8-82.8); PLATELET COUNT 42 K/MM3 (134-434); RBC 2.59 M/mm3 (4.00-5.60); RDW 16.6 % (11.9-15.9)
[2018-05-04 18:11] LABS: ANION GAP 11 MMOL/L (8-16); BLOOD UREA NITROGEN 11 mg/dL (7-18); CALCIUM 7.3 mg/dL (8.5-10.1); CHLORIDE 107 mmol/L (98-107); CO2 23 mmol/L (21-32); CREATININE 0.8 mg/dL (0.55-1.3); GLUCOSE,RANDOM 118 mg/dL (74-106); POTASSIUM 3.9 mmol/L (3.5-5.1); SODIUM 141 mmol/L (136-145)
[2018-05-04 21:23] LABS: WHITE BLOOD COUNT 1.4 K/mm3 (4.0-10.0)
[2018-05-04 21:37] LABS: PLATELET ESTIMATE DECREASED
[2018-05-05] MEDS ORDERED: PT OWN MED DRAWER 7, Y5N ONE (01:15)
[2018-05-05] MEDS: MEROPENEM 1 GM in DEXTROSE 5%-WATER 100 ML IVPB SCH ×3 (01:32→17:13)
[2018-05-05] MEDS: POTASSIUM CHLORIDE 40 MEQ in SODIUM CHLORIDE 1,000 ML IVPB SCH ×2 (03:57→15:49)
[2018-05-05 07:18] LABS: BASO % 0.3 % (0-2.0); EOS % 5.3 % (0-4.5); HEMATOCRIT 22.3 % (35.4-49); HEMOGLOBIN 7.7 GM/dL (11.7-16.9); LYMPH % 22.5 % (8-40); MCH 27.9 pg (25.7-33.7); MCHC 34.7 g/dl (32.0-35.9); MEAN CELL VOLUME 80.4 fl (80-96); MEAN PLT VOLUME 7.6 fl (7.5-11.1); MONO % 10.2 % (3.8-10.2); NEUT % 61.7 % (42.8-82.8); RBC 2.78 M/mm3 (4.00-5.60); RDW 16.3 % (11.9-15.9)
[2018-05-05 07:41] LABS: PLATELET COUNT 33 K/MM3 (134-434); WHITE BLOOD COUNT 1.4 K/mm3 (4.0-10.0)
[2018-05-05 07:44] LABS: ALBUMIN 2.6 g/dl (3.4-5.0); ALK PHOS 120 U/L (45-117); ANION GAP 10 MMOL/L (8-16); BILIRUBIN,TOTAL 1.1 mg/dL (0.2-1); BLOOD UREA NITROGEN 11 mg/dL (7-18); CALCIUM 7.4 mg/dL (8.5-10.1); CHLORIDE 109 mmol/L (98-107); CO2 23 mmol/L (21-32); CREATININE 0.7 mg/dL (0.55-1.3); GLUCOSE,RANDOM 90 mg/dL (74-106); MAGNESIUM 1.9 mg/dL (1.8-2.4); PHOSPHOROUS 2.5 mg/dL (2.5-4.9); POTASSIUM 3.6 mmol/L (3.5-5.1); SGOT/AST 16 U/L (15-37); SGPT/ALT 24 U/L (13-61); SODIUM 142 mmol/L (136-145); TOT PROT 5.3 g/dl (6.4-8.2)
[2018-05-05] MEDS: TBO-FILGRASTIM 300 MCG/0.5 ML DISP.SYRINGE SQ SCH (09:29)
[2018-05-05] MEDS: valACYclovir HCL 500 MG TABLET (FP) PO SCH (09:30)
[2018-05-05 11:10] LABS: ANISOCYTOSIS 1+; MACROCYTOSIS 0; PLATELET ESTIMATE DECREASED; TEAR DROP CELLS 1+; TOXIC GRANULATION 1+
--- NOTE | 2018-05-05 11:36 | PN ---
Progress Note, Physician History of Present Illness: patient remaining afebrile spiked yesterday - Current Medication List Current Medications: Active Medications Acetaminophen (Ofirmev Injection -) 1,000 mg IVPB Q6H PRN PRN Reason: PAIN LEVEL 7 - 10 Last Admin: 05/03/18 05:39 Dose: 1,000 mg Acetaminophen (Tylenol -) 650 mg PO Q6H PRN PRN Reason: FEVER Last Admin: 05/04/18 17:48 Dose: 650 mg Vancomycin HCl 1,500 mg/ (Dextrose) 500 mls @ 250 mls/hr IVPB Q24H JAYLENE; Protocol Last Admin: 05/04/18 14:33 Dose: 250 mls/hr Meropenem 1 gm/ Dextrose 100 mls @ 200 mls/hr IVPB Q8H-IV JAYLENE Last Admin: 05/05/18 09:30 Dose: 200 mls/hr Metronidazole (Flagyl 500mg Premixed Ivpb -) 500 mg in 100 mls @ 100 mls/hr IVPB Q6H-IV JAYLENE Last Admin: 05/05/18 09:30 Dose: 100 mls/hr Potassium Chloride 40 meq/ (Sodium Chloride) 1,020 mls @ 100 mls/hr IVPB Q10H JAYLENE Last Admin: 05/05/18 03:57 Dose: Not Given Lorazepam (Ativan Injection -) 1 mg IVPUSH Q3H PRN PRN Reason: ANXIETY Non-Formulary Medication (Posaconazole [Noxafil]) 100 mg PO ASDIR [facility] Tbo-Filgrastim (Granix -) 300 mcg SQ DAILY [facility] Last Admin: 05/05/18 09:29 Dose: 300 mcg Valacyclovir HCl (Valtrex -) 1,000 mg PO DAILY [facility] Last Admin: 05/05/18 09:30 Dose: 1,000 mg - Objective Vital Signs: Vital Signs Temperature 98.0 F 05/05/18 09:28 Pulse Rate 99 H 05/05/18 09:28 Respiratory Rate 18 05/05/18 09:28 Blood Pressure 112/76 05/05/18 09:28 O2 Sat by Pulse Oximetry (%) 96 05/04/18 21:00 Constitutional: Yes: No Distress, Calm Cardiovascular: Yes: Regular Rate and Rhythm Respiratory: Yes: Regular, CTA Bilaterally Gastrointestinal: Yes: Normal Bowel Sounds, Soft Musculoskeletal: Yes: WNL Extremities: Yes: WNL Neurological: Yes: Alert, Oriented Psychiatric: Yes: Alert, Oriented Labs: CBC, BMP 05/05/18 06:30 05/05/18 06:30 INR, PTT INR 1.24 (0.83-1.09) H 05/04/18 06:30 Assessment/Plan 52 yo M w/ pmhx of 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 Problem List - Problem (1) Aplastic anemia (2) B-cell lymphoma 3 sepsis 4 fever plan continue abx continue monitoring for fevers nutrition transfusions as needed monitor wbc rest as per the team
[2018-05-05] MEDS: VANCOMYCIN HCL 1,500 MG in DEXTROSE 5%-WATER - 500 ML IVPB SCH (12:16)
--- NOTE | 2018-05-05 14:11 | PN ---
Physical Exam: SUBJECTIVE: Patient seen and examined at bedside. Denies chest pain or shortness of breath. OBJECTIVE: Vital Signs Period Temp Pulse Resp BP Sys/Borjas Pulse Ox Last 24 Hr 98.0 F-102.1 F 92-111 18-20 101-126/62-79 96-96 GENERAL: NAD Resting in bed HEAD: Atraumatic/Normocephalic EYES: EOMI Sclera Clear NECK: Trachea midline, full range of motion, supple. LUNGS: CTAB HEART: RRR nl s1s2 ABDOMEN: Soft NDNT EXTREMITIES: No CCE. Muscle wasting b/l lower extremities. Laboratory Results - last 24 hr 05/04/18 05/04/18 05/04/18 09:55 17:00 17:00 WBC 1.4 L* RBC 2.59 L Hgb 7.3 L Hct 21.3 L MCV 82.1 MCH 28.3 MCHC 34.5 RDW 16.6 H Plt Count 42 L D MPV 7.5 D Absolute Neuts (auto) 0.9 L Neutrophils % 67.2 Neutrophils % (Manual) 55.0 Band Neutrophils % 24.0 Lymphocytes % 18.1 D Lymphocytes % (Manual) 14.0 D Monocytes % 11.8 H Monocytes % (Manual) 3 L Eosinophils % 2.7 Eosinophils % (Manual) 4.0 Basophils % 0.2 Basophils % (Manual) 0.0 Myelocytes % (Man) Promyelocytes % (Man) Blast Cells % (Manual) Nucleated RBC % 0 Metamyelocytes Hypochromia Toxic Granulation Platelet Estimate Decreased Platelet Comment No clumping noted Polychromasia Poikilocytosis Anisocytosis Microcytosis Macrocytosis Tear Drop Cells Haptoglobin 234 H Sodium 141 Potassium 3.9 Chloride 107 Carbon Dioxide 23 Anion Gap 11 BUN 11 Creatinine 0.8 Creat Clearance w eGFR 101.51 Random Glucose 118 H Calcium 7.3 L Phosphorus Magnesium Total Bilirubin AST ALT Alkaline Phosphatase Total Protein Albumin 05/05/18 05/05/18 06:30 06:30 WBC 1.4 L* RBC 2.78 L Hgb 7.7 L Hct 22.3 L MCV 80.4 MCH 27.9 MCHC 34.7 RDW 16.3 H Plt Count 33 L* D MPV 7.6 Absolute Neuts (auto) 0.9 L Neutrophils % 61.7 Neutrophils % (Manual) 49.5 Band Neutrophils % 9.9 Lymphocytes % 22.5 D Lymphocytes % (Manual) 26.8 D Monocytes % 10.2 Monocytes % (Manual) 7 D Eosinophils % 5.3 H D Eosinophils % (Manual) 6.9 H Basophils % 0.3 Basophils % (Manual) 0.0 Myelocytes % (Man) 0 Promyelocytes % (Man) 0 Blast Cells % (Manual) 0 Nucleated RBC % 0 Metamyelocytes 0 D Hypochromia 0 Toxic Granulation 1+ Platelet Estimate Decreased Platelet Comment Polychromasia 0 Poikilocytosis 1+ Anisocytosis 1+ Microcytosis 1+ Macrocytosis 0 Tear Drop Cells 1+ Haptoglobin Sodium 142 Potassium 3.6 Chloride 109 H Carbon Dioxide 23 Anion Gap 10 BUN 11 Creatinine 0.7 Creat Clearance w eGFR 118.43 Random Glucose 90 Calcium 7.4 L Phosphorus 2.5 Magnesium 1.9 Total Bilirubin 1.1 H AST 16 ALT 24 Alkaline Phosphatase 120 H Total Protein 5.3 L Albumin 2.6 L Active Medications Generic Name Dose Route Start Last Admin Trade Name Freq PRN Reason Stop Dose Admin Acetaminophen 1,000 mg 05/02/18 12:23 05/03/18 05:39 Ofirmev Injection - IVPB 1,000 mg Q6H PRN Administration PAIN LEVEL 7 - 10 Acetaminophen 650 mg 05/03/18 11:29 05/04/18 17:48 Tylenol - PO 650 mg Q6H PRN Administration FEVER Vancomycin HCl 1,500 mg/ 500 mls @ 250 mls/hr 05/03/18 10:00 05/05/18 12:16 Dextrose IVPB 250 mls/hr Q24H JAYLENE Administration Protocol Meropenem 1 gm/ Dextrose 100 mls @ 200 mls/hr 05/03/18 18:00 05/05/18 09:30 IVPB 200 mls/hr Q8H-IV JAYLENE Administration Metronidazole 500 mg in 100 mls @ 100 mls/hr 05/03/18 19:00 05/05/18 09:30 Flagyl 500mg Premixed Ivpb - IVPB 100 mls/hr Q6H-IV JAYLENE Administration Potassium Chloride 40 meq/ 1,020 mls @ 100 mls/hr 05/04/18 17:15 05/05/18 03: 57 Sodium Chloride IVPB Not Given Q10H JAYLENE Non-Formulary Medication 100 mg 05/02/18 12:23 Posaconazole [Noxafil] PO ASDIR JAYLENE Tbo-Filgrastim 300 mcg 05/04/18 10:00 05/05/18 09:29 Granix - SQ 300 mcg DAILY JAYLENE Administration Valacyclovir HCl 1,000 mg 05/03/18 10:00 05/05/18 09:30 Valtrex - PO 1,000 mg DAILY JAYLENE Administration ASSESSMENT/PLAN: Unfortunate 52 y/o man with h/o B cell lymphoma, with recent admission to [facility] for AMS, SAH, polymicrobial bacteremia (including MRSA ) and hematemesis. Presented to [facility] as he was found with AMS by his niece. He was found to have aplastic crisis. #Aplastic crisis likely 2/2 chemotherapy -s/p 4U pRBC, 1U pl upon admission -H/H today 7.7/22.3; Abs neuts 0.9 -Goal Hgb >7, transfuse PRN. -Neutropenic precautions -Check parvovirus B19 -Dr Leonard on board -CTAP--> PNA and perirenal abscess extending to anus Granix 300 mcg SQ Daily -Quantiferon pending #Diffuse Large B Cell Lymphoma - hold chemotherapy agents -Per ID, Merrem, flagyl, and Vanco Day 3 -Blood and Urine Cultures negative FEN -No Fluids -Monitor Electrolytes -Soft Diet Dispo -Med-Surg Visit type - Emergency Visit Emergency Visit: Yes ED Registration Date: 04/29/18 Care time: The patient presented to the Emergency Department on the above date and was hospitalized for further evaluation of their emergent condition. - New Patient This patient is new to me today: No - Critical Care Critical Care patient: No - Discharge Referral Referred to [facility] Med P.C.: No
[2018-05-05 17:01] VITALS: BMI 23.2
--- NOTE | 2018-05-05 18:33 | PN ---
Teaching Attending Note Name of Resident: Rojelio Alonso ATTENDING PHYSICIAN STATEMENT I saw and evaluated the patient. I reviewed the resident's note and discussed the case with the resident. I agree with the resident's findings and plan as documented. SUBJECTIVE: patient is feeling better. OBJECTIVE: Vital Signs Temperature 99.5 F 05/05/18 14:30 Pulse Rate 91 H 05/05/18 14:30 Respiratory Rate 18 05/05/18 09:28 Blood Pressure 98/67 05/05/18 14:30 O2 Sat by Pulse Oximetry (%) 96 05/05/18 09:00 GENERAL: awake, alert, with no NAD, lying in bed HEAD: Atraumatic/Normocephalic EYES: EOMI, PERRLA NECK: Trachea midline, full range of motion, supple. LUNGS: decreased BS at basis otherwise clear HEART: tachycardic, nl s1s2 ABDOMEN: Soft, ND, NT EXTREMITIES: No CCE : [place] catheter CBCD WBC 1.4 K/mm3 (4.0-10.0) L* 05/05/18 06:30 RBC 2.78 M/mm3 (4.00-5.60) L 05/05/18 06:30 Hgb 7.7 GM/dL (11.7-16.9) L 05/05/18 06:30 Hct 22.3 % (35.4-49) L 05/05/18 06:30 MCV 80.4 fl (80-96) 05/05/18 06:30 MCHC 34.7 g/dl (32.0-35.9) 05/05/18 06:30 RDW 16.3 % (11.9-15.9) H 05/05/18 06:30 Plt Count 33 K/MM3 (134-434) L* D 05/05/18 06:30 MPV 7.6 fl (7.5-11.1) 05/05/18 06:30 CMP Sodium 142 mmol/L (136-145) 05/05/18 06:30 Potassium 3.6 mmol/L (3.5-5.1) 05/05/18 06:30 Chloride 109 mmol/L (98-107) H 05/05/18 06:30 Carbon Dioxide 23 mmol/L (21-32) 05/05/18 06:30 Anion Gap 10 MMOL/L (8-16) 05/05/18 06:30 BUN 11 mg/dL (7-18) 05/05/18 06:30 Creatinine 0.7 mg/dL (0.55-1.3) 05/05/18 06:30 Creat Clearance w eGFR 118.43 (>60) 05/05/18 06:30 Random Glucose 90 mg/dL (74-106) 05/05/18 06:30 Calcium 7.4 mg/dL (8.5-10.1) L 05/05/18 06:30 Total Bilirubin 1.1 mg/dL (0.2-1) H 05/05/18 06:30 AST 16 U/L (15-37) 05/05/18 06:30 ALT 24 U/L (13-61) 05/05/18 06:30 Alkaline Phosphatase 120 U/L (45-117) H 05/05/18 06:30 Total Protein 5.3 g/dl (6.4-8.2) L 05/05/18 06:30 Albumin 2.6 g/dl (3.4-5.0) L 05/05/18 06:30 CARDIAC ENZYMES Troponin I < 0.02 ng/ml (0.00-0.05) 04/29/18 15:30 Current Medications Generic Name Dose Route Start Last Admin Trade Name Aurelioq PRN Reason Stop Dose Admin Acetaminophen 1,000 mg 05/02/18 12:23 05/03/18 05:39 Ofirmev Injection - IVPB 1,000 mg Q6H PRN Administration PAIN LEVEL 7 - 10 Acetaminophen 650 mg 05/03/18 11:29 05/04/18 17:48 Tylenol - PO 650 mg Q6H PRN Administration FEVER Vancomycin HCl 1,500 mg/ 500 mls @ 250 mls/hr 05/03/18 10:00 05/05/18 12:16 Dextrose IVPB 250 mls/hr Q24H JAYLENE Administration Protocol Meropenem 1 gm/ Dextrose 100 mls @ 200 mls/hr 05/03/18 18:00 05/05/18 17:13 IVPB 200 mls/hr Q8H-IV JAYLENE Administration Metronidazole 500 mg in 100 mls @ 100 mls/hr 05/03/18 19:00 05/05/18 15:49 Flagyl 500mg Premixed Ivpb - IVPB 100 mls/hr Q6H-IV JAYLENE Administration Potassium Chloride 40 meq/ 1,020 mls @ 100 mls/hr 05/04/18 17:15 05/05/18 15: 49 Sodium Chloride IVPB 100 mls/hr Q10H JAYLENE Administration Non-Formulary Medication 100 mg 05/02/18 12:23 Posaconazole [Noxafil] PO ASDIR JAYLENE Tbo-Filgrastim 300 mcg 05/04/18 10:00 05/05/18 09:29 Granix - SQ 300 mcg DAILY JAYLENE Administration Valacyclovir HCl 1,000 mg 05/03/18 10:00 05/05/18 09:30 Valtrex - PO 1,000 mg DAILY JAYLENE Administration Home Medications Medication Instructions Recorded Eltrombopag Olamine [Promacta] 50 mg PO DAILY 04/29/18 Filgrastim [Neupogen] 300 mcg IJ ASDIR 04/29/18 Filgrastim-Sndz [Zarxio] 300 mcg IJ ASDIR 04/29/18 Levofloxacin [Levaquin] 500 mg PO ASDIR 04/29/18 Posaconazole [Noxafil] 100 mg PO ASDIR 04/29/18 Valacyclovir HCl [Valtrex -] 1,000 mg PO ASDIR 04/29/18 ASSESSMENT AND PLAN: Patient is a 52 y/o man with h/o B cell lymphoma, with recent admission to [facility] for AMS, SAH, polymicrobial bacteremia ( including MRSA ) and hematemesis. presented to ED. for having change of mental status, and was found to have aplastic crisis. # Posterior Bibasilar infiltrates on IV antibiotics continue # Interstitial infiltrate on IV antibiotic # Left upper lobe cavitary lesions ; quateferon ordered, will follow # Acute left perianal abscess (2.3x1.7x0.7) # moderate to marked prostate enlargement # mild splenomegaly # Aplastic crisis: parvovirus B19 pending, neutropenic precaution and isolation and diet, s/p transfusion 5 packed of RBC, one unit of platelets, transfuse for Hb < 7 . cont vanc and meropenem , Dr Harrell; id on the case, vanco trough , so far the culture is negative, blood cx neg so far. continue neupogen daily. # Thrombocytopenia : improving 17K-->12K--> 33K improving. # AMS most likely due to sepsis : improved , more awake and cooperative now # Acute hypokalemia: KCL 40meq to NS at 100cc/hr x 2 liter, repeat K level in am. improved # Transaminitis: improved, will continue to trend Patient is refusing tx to [facility]. DVT Px: SVDs , can't AC due to platelets of 17K-->12K
[2018-05-05] MEDS: ACETAMINOPHEN 325 MG TABLET (FP) PO PRN (22:55)
[2018-05-06] MEDS: POTASSIUM CHLORIDE 40 MEQ in SODIUM CHLORIDE 1,000 ML IVPB SCH ×3 (00:23→18:42)
[2018-05-06] MEDS ORDERED: PT OWN MED DRAWER 7, Y5N ONE ×4 (02:12→16:39)
[2018-05-06] MEDS: MEROPENEM 1 GM in DEXTROSE 5%-WATER 100 ML IVPB SCH ×3 (02:25→17:09)
[2018-05-06 07:09] LABS: BASO % 0.4 % (0-2.0); EOS % 5.6 % (0-4.5); HEMATOCRIT 20.6 % (35.4-49); HEMOGLOBIN 7.1 GM/dL (11.7-16.9); LYMPH % 32.1 % (8-40); MCH 27.7 pg (25.7-33.7); MCHC 34.2 g/dl (32.0-35.9); MEAN CELL VOLUME 80.9 fl (80-96); MEAN PLT VOLUME 7.6 fl (7.5-11.1); MONO % 13.6 % (3.8-10.2); NEUT % 48.3 % (42.8-82.8); RBC 2.55 M/mm3 (4.00-5.60); RDW 16.2 % (11.9-15.9)
[2018-05-06 07:27] LABS: ANION GAP 7 MMOL/L (8-16); BLOOD UREA NITROGEN 14 mg/dL (7-18); CHLORIDE 109 mmol/L (98-107); CO2 24 mmol/L (21-32); CREATININE 0.9 mg/dL (0.55-1.3); GLUCOSE,RANDOM 93 mg/dL (74-106); MAGNESIUM 1.5 mg/dL (1.8-2.4); PHOSPHOROUS 2.4 mg/dL (2.5-4.9); POTASSIUM 3.6 mmol/L (3.5-5.1); SODIUM 139 mmol/L (136-145)
[2018-05-06 08:04] LABS: WHITE BLOOD COUNT 1.4 K/mm3 (4.0-10.0)
[2018-05-06 08:05] LABS: PLATELET COUNT 21 K/MM3 (134-434)
--- NOTE | 2018-05-06 10:09 | PN ---
Physical Exam: SUBJECTIVE: Patient seen and examined at bedside. Denies any pain. Reports mild cough without shortness of breath and no sputum production or hemoptysis. OBJECTIVE: Vital Signs Period Temp Pulse Resp BP Sys/Borjas Pulse Ox Last 24 Hr 98.0 F-101.8 F 82-108 16-20 89-117/55-71 96 GENERAL: The patient is awake alert and oriented HEAD: Normal with no signs of trauma. EYES: Pupils equal, round and reactive to light ENT: poor dentition, otherwise normal oropharynx, no peticheae NECK: Trachea midline, full range of motion, supple, no masses palpated LUNGS: Breath sounds equal but coarse, no crackles noted bilaterally HEART: tachycardic without murmur ABDOMEN: Soft, nontender, nondistended, bowel sounds present, no masses palpated EXTREMITIES: 2+ pulses, warm, well-perfused, no edema. SKIN: Warm, dry, normal turgor, no rashes or lesions noted Laboratory Results - last 24 hr 05/05/18 05/06/18 05/06/18 06:30 05:30 05:30 WBC 1.4 L* RBC 2.55 L Hgb 7.1 L Hct 20.6 L MCV 80.9 MCH 27.7 MCHC 34.2 RDW 16.2 H Plt Count 21 L* D MPV 7.6 Absolute Neuts (auto) 0.7 L Neutrophils % 48.3 D Neutrophils % (Manual) 49.5 Band Neutrophils % 9.9 Lymphocytes % 32.1 D Lymphocytes % (Manual) 26.8 D Monocytes % 13.6 H Monocytes % (Manual) 7 D Eosinophils % 5.6 H Eosinophils % (Manual) 6.9 H Basophils % 0.4 Basophils % (Manual) 0.0 Myelocytes % (Man) 0 Promyelocytes % (Man) 0 Blast Cells % (Manual) 0 Nucleated RBC % 0 Metamyelocytes 0 D Hypochromia 0 Toxic Granulation 1+ Platelet Estimate Decreased Polychromasia 0 Poikilocytosis 1+ Anisocytosis 1+ Microcytosis 1+ Macrocytosis 0 Tear Drop Cells 1+ Sodium 139 Potassium 3.6 Chloride 109 H Carbon Dioxide 24 Anion Gap 7 L BUN 14 Creatinine 0.9 Creat Clearance w eGFR 88.61 Random Glucose 93 Calcium 7.0 L Phosphorus 2.4 L Magnesium 1.5 L Active Medications Generic Name Dose Route Start Last Admin Trade Name Freq PRN Reason Stop Dose Admin Acetaminophen 1,000 mg 05/02/18 12:23 05/03/18 05:39 Ofirmev Injection - IVPB 1,000 mg Q6H PRN Administration PAIN LEVEL 7 - 10 Acetaminophen 650 mg 05/03/18 11:29 05/05/18 22:55 Tylenol - PO 650 mg Q6H PRN Administration FEVER Vancomycin HCl 1,500 mg/ 500 mls @ 250 mls/hr 05/03/18 10:00 05/05/18 12:16 Dextrose IVPB 250 mls/hr Q24H JAYLENE Administration Protocol Meropenem 1 gm/ Dextrose 100 mls @ 200 mls/hr 05/03/18 18:00 05/06/18 02:25 IVPB 200 mls/hr Q8H-IV JAYLENE Administration Metronidazole 500 mg in 100 mls @ 100 mls/hr 05/03/18 19:00 05/06/18 08:38 Flagyl 500mg Premixed Ivpb - IVPB 100 mls/hr Q6H-IV JAYLENE Administration Potassium Chloride 40 meq/ 1,020 mls @ 100 mls/hr 05/04/18 17:15 05/06/18 08: 46 Sodium Chloride IVPB 100 mls/hr Q10H JAYLENE Administration Non-Formulary Medication 100 mg 05/02/18 12:23 Posaconazole [Noxafil] PO ASDIR JAYLENE Tbo-Filgrastim 300 mcg 05/04/18 10:00 05/05/18 09:29 Granix - SQ 300 mcg DAILY JAYLENE Administration Valacyclovir HCl 1,000 mg 05/03/18 10:00 05/05/18 09:30 Valtrex - PO 1,000 mg DAILY JAYLENE Administration Current Medications Acetaminophen (Ofirmev Injection -) 1,000 mg IVPB Q6H PRN PRN Reason: PAIN LEVEL 7 - 10 Last Admin: 05/03/18 05:39 Dose: 1,000 mg Acetaminophen (Tylenol -) 650 mg PO Q6H PRN PRN Reason: FEVER Last Admin: 05/05/18 22:55 Dose: 650 mg Vancomycin HCl 1,500 mg/ (Dextrose) 500 mls @ 250 mls/hr IVPB Q24H JAYLENE; Protocol Last Admin: 05/05/18 12:16 Dose: 250 mls/hr Meropenem 1 gm/ Dextrose 100 mls @ 200 mls/hr IVPB Q8H-IV JAYLENE Last Admin: 05/06/18 02:25 Dose: 200 mls/hr Metronidazole (Flagyl 500mg Premixed Ivpb -) 500 mg in 100 mls @ 100 mls/hr IVPB Q6H-IV JAYLENE Last Admin: 05/06/18 08:38 Dose: 100 mls/hr Potassium Chloride 40 meq/ (Sodium Chloride) 1,020 mls @ 100 mls/hr IVPB Q10H JAYLENE Last Admin: 05/06/18 08:46 Dose: 100 mls/hr Non-Formulary Medication (Posaconazole [Noxafil]) 100 mg PO ASDIR JAYLENE Tbo-Filgrastim (Granix -) 300 mcg SQ DAILY [facility] Last Admin: 05/05/18 09:29 Dose: 300 mcg Valacyclovir HCl (Valtrex -) 1,000 mg PO DAILY [facility] Last Admin: 05/05/18 09:30 Dose: 1,000 mg ASSESSMENT/PLAN: 52 year old male with a hx of 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 (most recently 02/15) with aplastic crisis presented for altered mental status, multiple falls Aplastic crisis: possibly secondary to bone marrow destruction from chemotherapy , absolute neutrophil still low and platelet count at 21 -s/p multiple transfusions -continue to transfuse to hgb goal of 7 -chest/abd pelvis CT shows PNA and perirenal abscess extending to anus and cavitary lesion in the NORA -transfuse platelets if <15 -continue to monitor H&H Neutropenic Sepsis: febrile overnight, afebrile today -continue meropenem, vancomycin, valacyclovir, flagyl -cultures negative -follow quantiferon and keep on airborne isolation -monitor vital signs Altered Mental Status: resolved head ct (-) for acute disease Continue to treat with abx 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 -chemo held due to low platelets/aplastic crisis -will need evaluation after acute symptoms resolve Hypokalemia replete potassium Lactic Acidosis: resolved FEN no standing fluids follow lights diet Prophylaxis -SCD prophylaxis Disposition -continue to monitor on med surg Visit type - Emergency Visit Emergency Visit: No - New Patient This patient is new to me today: No - Critical Care Critical Care patient: No
[2018-05-06] MEDS ORDERED: POTASSIUM CHLORIDE ORAL LIQUID 20 MEQ/15 ML PO ONE (10:13)
[2018-05-06] MEDS: TBO-FILGRASTIM 300 MCG/0.5 ML DISP.SYRINGE SQ SCH (10:27)
[2018-05-06] MEDS: VANCOMYCIN HCL 1,500 MG in DEXTROSE 5%-WATER - 500 ML IVPB SCH (10:28)
[2018-05-06] MEDS: valACYclovir HCL 500 MG TABLET (FP) PO SCH (10:29)
--- NOTE | 2018-05-06 12:43 | PN ---
Teaching Attending Note Name of Resident: Elton Melchor ATTENDING PHYSICIAN STATEMENT I saw and evaluated the patient. I reviewed the resident's note and discussed the case with the resident. I agree with the resident's findings and plan as documented. SUBJECTIVE: Patient is feeling better , no fever or chills. OBJECTIVE: Vital Signs Temperature 98.0 F 05/06/18 09:10 Pulse Rate 89 05/06/18 09:10 Respiratory Rate 17 05/06/18 09:10 Blood Pressure 103/69 05/06/18 09:10 O2 Sat by Pulse Oximetry (%) 96 05/05/18 21:00 GENERAL: awake, alert, with no NAD, lying in bed HEAD: Atraumatic/Normocephalic EYES: EOMI, PERRLA NECK: Trachea midline, full range of motion, supple. LUNGS: decreased BS at basis otherwise clear HEART: RRR, nl s1s2 ABDOMEN: Soft, ND, NT EXTREMITIES: No CCE : [place] catheter CBCD WBC 1.4 K/mm3 (4.0-10.0) L* 05/06/18 05:30 RBC 2.55 M/mm3 (4.00-5.60) L 05/06/18 05:30 Hgb 7.1 GM/dL (11.7-16.9) L 05/06/18 05:30 Hct 20.6 % (35.4-49) L 05/06/18 05:30 MCV 80.9 fl (80-96) 05/06/18 05:30 MCHC 34.2 g/dl (32.0-35.9) 05/06/18 05:30 RDW 16.2 % (11.9-15.9) H 05/06/18 05:30 Plt Count 21 K/MM3 (134-434) L* D 05/06/18 05:30 MPV 7.6 fl (7.5-11.1) 05/06/18 05:30 CMP Sodium 139 mmol/L (136-145) 05/06/18 05:30 Potassium 3.6 mmol/L (3.5-5.1) 05/06/18 05:30 Chloride 109 mmol/L (98-107) H 05/06/18 05:30 Carbon Dioxide 24 mmol/L (21-32) 05/06/18 05:30 Anion Gap 7 MMOL/L (8-16) L 05/06/18 05:30 BUN 14 mg/dL (7-18) 05/06/18 05:30 Creatinine 0.9 mg/dL (0.55-1.3) 05/06/18 05:30 Creat Clearance w eGFR 88.61 (>60) 05/06/18 05:30 Random Glucose 93 mg/dL (74-106) 05/06/18 05:30 Calcium 7.0 mg/dL (8.5-10.1) L 05/06/18 05:30 Total Bilirubin 1.1 mg/dL (0.2-1) H 05/05/18 06:30 AST 16 U/L (15-37) 05/05/18 06:30 ALT 24 U/L (13-61) 05/05/18 06:30 Alkaline Phosphatase 120 U/L (45-117) H 05/05/18 06:30 Total Protein 5.3 g/dl (6.4-8.2) L 05/05/18 06:30 Albumin 2.6 g/dl (3.4-5.0) L 05/05/18 06:30 CARDIAC ENZYMES Troponin I < 0.02 ng/ml (0.00-0.05) 04/29/18 15:30 Current Medications Generic Name Dose Route Start Last Admin Trade Name Freq PRN Reason Stop Dose Admin Acetaminophen 1,000 mg 05/02/18 12:23 05/03/18 05:39 Ofirmev Injection - IVPB 1,000 mg Q6H PRN Administration PAIN LEVEL 7 - 10 Acetaminophen 650 mg 05/03/18 11:29 05/05/18 22:55 Tylenol - PO 650 mg Q6H PRN Administration FEVER Vancomycin HCl 1,500 mg/ 500 mls @ 250 mls/hr 05/03/18 10:00 05/06/18 10:28 Dextrose IVPB 250 mls/hr Q24H JAYLENE Administration Protocol Meropenem 1 gm/ Dextrose 100 mls @ 200 mls/hr 05/03/18 18:00 05/06/18 10:29 IVPB 200 mls/hr Q8H-IV JAYLENE Administration Metronidazole 500 mg in 100 mls @ 100 mls/hr 05/03/18 19:00 05/06/18 08:38 Flagyl 500mg Premixed Ivpb - IVPB 100 mls/hr Q6H-IV JAYLENE Administration Potassium Chloride 40 meq/ 1,020 mls @ 100 mls/hr 05/04/18 17:15 05/06/18 08: 46 Sodium Chloride IVPB 100 mls/hr Q10H JAYLENE Administration Non-Formulary Medication 100 mg 05/02/18 12:23 Posaconazole [Noxafil] PO ASDIR JAYLENE Tbo-Filgrastim 300 mcg 05/04/18 10:00 05/06/18 10:27 Granix - SQ 300 mcg DAILY JAYLENE Administration Valacyclovir HCl 1,000 mg 05/03/18 10:00 05/06/18 10:29 Valtrex - PO 1,000 mg DAILY JAYLENE Administration Home Medications Medication Instructions Recorded Eltrombopag Olamine [Promacta] 50 mg PO DAILY 04/29/18 Filgrastim [Neupogen] 300 mcg IJ ASDIR 04/29/18 Filgrastim-Sndz [Zarxio] 300 mcg IJ ASDIR 04/29/18 Levofloxacin [Levaquin] 500 mg PO ASDIR 04/29/18 Posaconazole [Noxafil] 100 mg PO ASDIR 04/29/18 Valacyclovir HCl [Valtrex -] 1,000 mg PO ASDIR 04/29/18 ASSESSMENT AND PLAN: Patient is a 52 y/o man with h/o B cell lymphoma, with recent admission to [facility] for AMS, SAH, polymicrobial bacteremia ( including MRSA ) and hematemesis. presented to ED. for having change of mental status, and was found to have aplastic crisis. # Posterior Bibasilar infiltrates on IV antibiotics Meropenem, Vancomycin continue # Interstitial infiltrate on IV antibiotic # Left upper lobe cavitary lesions ; quateferon ordered, will follow , sputum AFB # Acute left perianal abscess (2.3x1.7x0.7) # moderate to marked prostate enlargement # mild splenomegaly # Aplastic crisis: parvovirus B19 pending, neutropenic precaution and isolation and diet, s/p transfusion 5 packed of RBC, one unit of platelets, transfuse for Hb < 7 . cont vanc and meropenem , Dr Harrell; id on the case, vanco trough , so far the culture is negative, blood cx neg so far. continue neupogen daily. # Thrombocytopenia : improving 17K-->12K--> 33K improving. # AMS most likely due to sepsis : improved , more awake and cooperative now # Acute hypokalemia: KCL 40meq to NS at 100cc/hr x 2 liter, repeat K level in am. improved # Transaminitis: improved, will continue to trend Patient is refusing tx to [facility]. DVT Px: SVDs , can't AC due to platelets of 17K-->12K-->21K
[2018-05-06 13:02] LABS: ANISOCYTOSIS 2+; MACROCYTOSIS 0; PLATELET ESTIMATE DECREASED
--- NOTE | 2018-05-06 18:39 | PN ---
Progress Note (short form) - Note Progress Note: Patient seen in follow up. No new complaints. Fever at 10pm last night, now resolved. Inpatient Meds reviewed. Current Medications Generic Name Dose Route Start Last Admin Trade Name Freq PRN Reason Stop Dose Admin Acetaminophen 650 mg 05/03/18 11:29 05/05/18 22:55 Tylenol - PO 650 mg Q6H PRN Administration FEVER Vancomycin HCl 1,500 mg/ 500 mls @ 250 mls/hr 05/03/18 10:00 05/06/18 10:28 Dextrose IVPB 250 mls/hr Q24H JAYLENE Administration Protocol Meropenem 1 gm/ Dextrose 100 mls @ 200 mls/hr 05/03/18 18:00 05/06/18 17:09 IVPB 200 mls/hr Q8H-IV JAYLENE Administration Metronidazole 500 mg in 100 mls @ 100 mls/hr 05/03/18 19:00 05/06/18 15:00 Flagyl 500mg Premixed Ivpb - IVPB 100 mls/hr Q6H-IV JAYLENE Administration Potassium Chloride 40 meq/ 1,020 mls @ 100 mls/hr 05/04/18 17:15 05/06/18 08: 46 Sodium Chloride IVPB 100 mls/hr Q10H JAYLENE Administration Non-Formulary Medication 100 mg 05/02/18 12:23 Posaconazole [Noxafil] PO ASDIR JAYLENE Tbo-Filgrastim 300 mcg 05/04/18 10:00 05/06/18 10:27 Granix - SQ 300 mcg DAILY JAYLENE Administration Valacyclovir HCl 1,000 mg 05/03/18 10:00 05/06/18 10:29 Valtrex - PO 1,000 mg DAILY JAYLENE Administration On Examination: Last Vital Signs Temp Pulse Resp BP Pulse Ox 98.8 F 91 H 18 101/67 98 05/06/18 15:02 05/06/18 15:02 05/06/18 15:02 05/06/18 15:02 05/06/18 09:00 General: In no acute distress, lying comfortably in bed. Extremities: No pallor or icterus. No pedal edema. No palpable lymphadenopathy. CVS: S1, S2, regular, no gallop or murmur. Chest: good air entry bilaterally, clear Abdomen: Non-distended, non-tender, no palpable organomegaly. Neuro: Alert, oriented, non-focal. Labs: CBC, BMP 05/06/18 05:30 05/06/18 05:30 Assessment. History of agressive DLBCL, last treated at [facility] with salvage regimen February 2018, complicated by pancytopenia and multimicrobial infection. Discharged March under palliative care. Did not follow up at [facility] - now at [place], admitted with ongoing pancytopenia and sepsis. Ongoing empiric multuiple antibiotics as per ID - considering addition of antifungal therapy if fever persists. Growth factor and transfusion support. Unclear status of lymphoproliferative neoplasm - pancytopenia secondary to aplastic marrow (following chemotherapy) versus active disease. Will try obtain more information from [facility] - repeat bone marrow biopsy may be informative.
--- NOTE | 2018-05-06 19:26 | PN ---
Progress Note, Physician History of Present Illness: Pt seen and examined, events/imaging and lab results reviewed. Febrile to 101.8F last night, has been afebrile since. Currently alert, without distress. No specific complaints. - Current Medication List Current Medications: Active Medications Acetaminophen (Tylenol -) 650 mg PO Q6H PRN PRN Reason: FEVER Last Admin: 05/05/18 22:55 Dose: 650 mg Vancomycin HCl 1,500 mg/ (Dextrose) 500 mls @ 250 mls/hr IVPB Q24H JAYLENE; Protocol Last Admin: 05/06/18 10:28 Dose: 250 mls/hr Meropenem 1 gm/ Dextrose 100 mls @ 200 mls/hr IVPB Q8H-IV JAYLENE Last Admin: 05/06/18 17:09 Dose: 200 mls/hr Metronidazole (Flagyl 500mg Premixed Ivpb -) 500 mg in 100 mls @ 100 mls/hr IVPB Q6H-IV JAYLENE Last Admin: 05/06/18 15:00 Dose: 100 mls/hr Potassium Chloride 40 meq/ (Sodium Chloride) 1,020 mls @ 100 mls/hr IVPB Q10H JAYLENE Last Admin: 05/06/18 18:42 Dose: Not Given Non-Formulary Medication (Posaconazole [Noxafil]) 100 mg PO ASDIR [facility] Tbo-Filgrastim (Granix -) 300 mcg SQ DAILY [facility] Last Admin: 05/06/18 10:27 Dose: 300 mcg Valacyclovir HCl (Valtrex -) 1,000 mg PO DAILY [facility] Last Admin: 05/06/18 10:29 Dose: 1,000 mg - Objective Vital Signs: Vital Signs Temperature 98.8 F 05/06/18 15:02 Pulse Rate 91 H 05/06/18 15:02 Respiratory Rate 18 05/06/18 15:02 Blood Pressure 101/67 05/06/18 15:02 O2 Sat by Pulse Oximetry (%) 98 05/06/18 09:00 Constitutional: Yes: No Distress, Calm Neck: Yes: Supple Cardiovascular: Yes: Regular Rate and Rhythm Respiratory: Yes: CTA Bilaterally Gastrointestinal: Yes: Normal Bowel Sounds, Soft Extremities: Yes: WNL Integumentary: Yes: WNL Neurological: Yes: Alert Labs: CBC, BMP 05/06/18 05:30 05/06/18 05:30 INR, PTT INR 1.24 (0.83-1.09) H 05/04/18 06:30 Microbiology 05/03/18 09:00 Blood - Peripheral Venous Blood Culture - Preliminary NO GROWTH OBTAINED AFTER 72 HOURS, INCUBATION TO CONTINUE FOR 2 DAYS. 05/03/18 09:15 Blood - Peripheral Venous Blood Culture - Preliminary NO GROWTH OBTAINED AFTER 72 HOURS, INCUBATION TO CONTINUE FOR 2 DAYS. 04/29/18 15:30 Blood - Peripheral Venous Blood Culture - Final NO GROWTH AFTER 5 DAYS INCUBATION 04/29/18 15:30 Blood - Peripheral Venous Blood Culture - Final NO GROWTH AFTER 5 DAYS INCUBATION 05/03/18 09:00 Urine - Urine Clean Catch Urine Culture - Final 04/29/18 15:25 Urine - Urine Clean Catch Urine Culture - Final NO GROWTH OBTAINED - ....Imaging X-ray: Report Reviewed Cat Scan: Report Reviewed Problem List - Problems (1) Altered mental status Code(s): R41.82 - ALTERED MENTAL STATUS, UNSPECIFIED (2) Aplastic anemia Code(s): D61.9 - APLASTIC ANEMIA, UNSPECIFIED (3) B-cell lymphoma Code(s): C85.10 - UNSPECIFIED B-CELL LYMPHOMA, UNSPECIFIED SITE Qualifiers: B-cell lymphoma type: diffuse large B-cell Lymphoma site: unspecified region Qualified Code(s): C83.30 - Diffuse large B-cell lymphoma, unspecified site (4) Dehydration Code(s): E86.0 - DEHYDRATION (5) Hyperbilirubinemia Code(s): E80.6 - OTHER DISORDERS OF BILIRUBIN METABOLISM (6) Neutropenic sepsis Code(s): A41.9 - SEPSIS, UNSPECIFIED ORGANISM; D70.9 - NEUTROPENIA, UNSPECIFIED Assessment/Plan Neutropenic fever PNA Aplastic crisis Perianal abscess B cell Lymphoma Lung cavitation Hx SAH -- Pt febrile last night, has been afebrile today -- continue current broad coverage and monitor temperatures -- F/u Parvovirus B-19 testing -- Quantiferon testing pending -- vitals currently appears stable, monitor closely
[2018-05-07] MEDS: MEROPENEM 1 GM in DEXTROSE 5%-WATER 100 ML IVPB SCH ×3 (01:16→17:58)
[2018-05-07] MEDS: POTASSIUM CHLORIDE 40 MEQ in SODIUM CHLORIDE 1,000 ML IVPB SCH ×4 (01:21→21:01)
--- NOTE | 2018-05-07 08:16 | PN ---
Physical Exam: SUBJECTIVE: Patient seen and examined at bedside. No fevers overnight. Denies pain or shortness of breath. OBJECTIVE: Vital Signs Period Temp Pulse Resp BP Sys/Borjas Pulse Ox Last 24 Hr 97.5 F-98.8 F 82-92 17-20 90-103/60-69 98-98 GENERAL: No acute distress HEAD: Atraumatic/Normocephalic EYES: EOMI Sclera Clear NECK: Trachea midline, full range of motion, supple. LUNGS: CTAB HEART: RRR nl s1s2 ABDOMEN: Soft NDNT EXTREMITIES: No CCE. Muscle wasting b/l lower extremities. Laboratory Results - last 24 hr 05/03/18 05/06/18 19:00 05:30 Neutrophils % (Manual) 42.0 L Band Neutrophils % 4.0 Lymphocytes % (Manual) 48.0 H D Monocytes % (Manual) 3 L Eosinophils % (Manual) 0.0 D Basophils % (Manual) 0.0 Myelocytes % (Man) 0 Promyelocytes % (Man) 0 Blast Cells % (Manual) 0 Metamyelocytes 0 Hypochromia 0 Platelet Estimate Decreased Polychromasia 0 Poikilocytosis 1+ Anisocytosis 2+ Microcytosis 1+ Macrocytosis 0 Blood Type A POSITIVE Antibody Screen Negative Crossmatch See Detail Active Medications Generic Name Dose Route Start Last Admin Trade Name Freq PRN Reason Stop Dose Admin Acetaminophen 650 mg 05/03/18 11:29 05/05/18 22:55 Tylenol - PO 650 mg Q6H PRN Administration FEVER Vancomycin HCl 1,500 mg/ 500 mls @ 250 mls/hr 05/03/18 10:00 05/06/18 10:28 Dextrose IVPB 250 mls/hr Q24H JAYLENE Administration Protocol Meropenem 1 gm/ Dextrose 100 mls @ 200 mls/hr 05/03/18 18:00 05/07/18 01:16 IVPB 200 mls/hr Q8H-IV JAYLENE Administration Metronidazole 500 mg in 100 mls @ 100 mls/hr 05/03/18 19:00 05/07/18 02:15 Flagyl 500mg Premixed Ivpb - IVPB 100 mls/hr Q6H-IV JAYLENE Administration Potassium Chloride 40 meq/ 1,020 mls @ 100 mls/hr 05/04/18 17:15 05/07/18 07: 40 Sodium Chloride IVPB Not Given Q10H [facility] Non-Formulary Medication 100 mg 05/02/18 12:23 Posaconazole [Noxafil] PO ASDIR JAYLENE Tbo-Filgrastim 300 mcg 05/04/18 10:00 05/06/18 10:27 Granix - SQ 300 mcg DAILY JAYLENE Administration Valacyclovir HCl 1,000 mg 05/03/18 10:00 05/06/18 10:29 Valtrex - PO 1,000 mg DAILY JAYLENE Administration ASSESSMENT/PLAN: Unfortunate 52 y/o man with h/o B cell lymphoma, with recent admission to [facility] for AMS, SAH, polymicrobial bacteremia (including MRSA ) and hematemesis. Presented to [facility] as he was found with AMS by his niece. He was found to have aplastic crisis. #Aplastic crisis likely 2/2 chemotherapy -s/p 4U pRBC, 1U pl upon admission -H/H today 7.3/21.6; Abs neuts 0.7 -Goal Hgb >7, transfuse PRN. -Neutropenic precautions -Check parvovirus B19 -Dr Leonard on board -CTAP--> PNA and perirenal abscess extending to anus Granix 300 mcg SQ Daily -Quantiferon pending #Diffuse Large B Cell Lymphoma - hold chemotherapy agents -Per ID, Merrem, flagyl, and Vanco Day 5 -Blood and Urine Cultures negative FEN -KCL 40meq to NS at 100cc/hr -Monitor Electrolytes -Soft Diet Dispo -Med-Surg Visit type - Emergency Visit Emergency Visit: Yes ED Registration Date: 04/29/18 Care time: The patient presented to the Emergency Department on the above date and was hospitalized for further evaluation of their emergent condition. - New Patient This patient is new to me today: No - Critical Care Critical Care patient: No - Discharge Referral Referred to [facility] Med P.C.: No
[2018-05-07 08:37] LABS: BASO % 0.5 % (0-2.0); EOS % 4.5 % (0-4.5); HEMATOCRIT 21.6 % (35.4-49); HEMOGLOBIN 7.3 GM/dL (11.7-16.9); LYMPH % 34.3 % (8-40); MCH 27.6 pg (25.7-33.7); MEAN CELL VOLUME 81.1 fl (80-96); MEAN PLT VOLUME 8.2 fl (7.5-11.1); MONO % 14.9 % (3.8-10.2); NEUT % 45.8 % (42.8-82.8); RBC 2.66 M/mm3 (4.00-5.60); RDW 15.9 % (11.9-15.9)
[2018-05-07 09:09] LABS: ALBUMIN 2.6 g/dl (3.4-5.0); ALK PHOS 108 U/L (45-117); ANION GAP 8 MMOL/L (8-16); BILIRUBIN,TOTAL 0.9 mg/dL (0.2-1); BLOOD UREA NITROGEN 13 mg/dL (7-18); CALCIUM 7.8 mg/dL (8.5-10.1); CHLORIDE 111 mmol/L (98-107); CO2 20 mmol/L (21-32); CREATININE 0.7 mg/dL (0.55-1.3); GLUCOSE,RANDOM 92 mg/dL (74-106); POTASSIUM 4.2 mmol/L (3.5-5.1); SGOT/AST 18 U/L (15-37); SGPT/ALT 22 U/L (13-61); SODIUM 139 mmol/L (136-145)
[2018-05-07 09:42] LABS: PLATELET COUNT 15 K/MM3 (134-434); WHITE BLOOD COUNT 1.6 K/mm3 (4.0-10.0)
[2018-05-07] MEDS ORDERED: PT OWN MED DRAWER 7, Y5N ONE ×2 (10:07→17:53)
[2018-05-07] MEDS: valACYclovir HCL 500 MG TABLET (FP) PO SCH (10:12)
[2018-05-07] MEDS: VANCOMYCIN HCL 1,500 MG in DEXTROSE 5%-WATER - 500 ML IVPB SCH (11:02)
[2018-05-07 11:46] LABS: ANISOCYTOSIS 1+; MACROCYTOSIS 0; PLATELET ESTIMATE DECREASED
--- NOTE | 2018-05-07 11:51 | PN ---
Progress Note (short form) - Note Progress Note: Patient seen in follow up. No new complaints. Inpatient Meds reviewed. Current Medications Acetaminophen (Tylenol -) 650 mg PO Q6H PRN PRN Reason: FEVER Last Admin: 05/05/18 22:55 Dose: 650 mg Vancomycin HCl 1,500 mg/ (Dextrose) 500 mls @ 250 mls/hr IVPB Q24H JAYLENE; Protocol Last Admin: 05/07/18 11:02 Dose: 250 mls/hr Meropenem 1 gm/ Dextrose 100 mls @ 200 mls/hr IVPB Q8H-IV JAYLENE Last Admin: 05/07/18 10:12 Dose: 200 mls/hr Metronidazole (Flagyl 500mg Premixed Ivpb -) 500 mg in 100 mls @ 100 mls/hr IVPB Q6H-IV JAYLENE Last Admin: 05/07/18 08:41 Dose: 100 mls/hr Potassium Chloride 40 meq/ (Sodium Chloride) 1,020 mls @ 100 mls/hr IVPB Q10H JAYLENE Last Admin: 05/07/18 07:40 Dose: Not Given Non-Formulary Medication (Posaconazole [Noxafil]) 100 mg PO ASDIR JAYLENE Tbo-Filgrastim (Granix -) 300 mcg SQ DAILY [facility] Last Admin: 05/06/18 10:27 Dose: 300 mcg Valacyclovir HCl (Valtrex -) 1,000 mg PO DAILY [facility] Last Admin: 05/07/18 10:12 Dose: 1,000 mg On Examination: Last Vital Signs Temp Pulse Resp BP Pulse Ox 97.5 F L 82 20 90/60 98 05/07/18 06:02 05/07/18 06:02 05/07/18 06:02 05/07/18 06:02 05/06/18 21:00 General: In no acute distress, lying comfortably in bed. Extremities: No pallor or icterus. No pedal edema. No palpable lymphadenopathy. CVS: S1, S2, regular, no gallop or murmur. Chest: good air entry bilaterally, clear Abdomen: Non-distended, non-tender, no palpable organomegaly. Neuro: Alert, oriented, non-focal. Labs: CBC, BMP 05/07/18 07:45 05/07/18 07:45 Assessment. History of agressive DLBCL, last treated at [facility] with salvage regimen February 2018, complicated by pancytopenia and multimicrobial infection. Discharged March under palliative care. Did not follow up at [facility] [place], admitted with ongoing pancytopenia and sepsis. Significantly improved since admission. Ongoing empiric multiple antibiotics, under ID guidance - considering addition of antifungal therapy if fever persists - afebrile since evening of 05/05. Growth factor and transfusion support for cytopenias. Unclear status of lymphoproliferative neoplasm - pancytopenia secondary to aplastic marrow (following chemotherapy) versus active disease. Will try obtain more information from [facility] - repeat bone marrow biopsy may be informative.
[2018-05-07] MEDS: TBO-FILGRASTIM 300 MCG/0.5 ML DISP.SYRINGE SQ SCH (12:56)
--- NOTE | 2018-05-07 14:55 | PN ---
Teaching Attending Note Name of Resident: Rojelio Alonso ATTENDING PHYSICIAN STATEMENT I saw and evaluated the patient. I reviewed the resident's note and discussed the case with the resident. I agree with the resident's findings and plan as documented. SUBJECTIVE: Patient is feeling better with no acute distress. OBJECTIVE: Vital Signs Temperature 97.5 F L 05/07/18 06:02 Pulse Rate 82 05/07/18 06:02 Respiratory Rate 20 05/07/18 06:02 Blood Pressure 90/60 05/07/18 06:02 O2 Sat by Pulse Oximetry (%) 98 05/06/18 21:00 GENERAL: awake, alert, with no NAD, lying in bed HEAD: Atraumatic/Normocephalic EYES: EOMI, PERRLA NECK: Trachea midline, full range of motion, supple. LUNGS: decreased BS at basis otherwise clear HEART: tachycardic, nl s1s2 ABDOMEN: Soft, ND, NT EXTREMITIES: No CCE : [place] catheter BCD WBC 1.6 K/mm3 (4.0-10.0) L* 05/07/18 07:45 RBC 2.66 M/mm3 (4.00-5.60) L 05/07/18 07:45 Hgb 7.3 GM/dL (11.7-16.9) L 05/07/18 07:45 Hct 21.6 % (35.4-49) L 05/07/18 07:45 MCV 81.1 fl (80-96) 05/07/18 07:45 MCHC 34.0 g/dl (32.0-35.9) 05/07/18 07:45 RDW 15.9 % (11.9-15.9) 05/07/18 07:45 Plt Count 15 K/MM3 (134-434) L* D 05/07/18 07:45 MPV 8.2 fl (7.5-11.1) 05/07/18 07:45 CMP Sodium 139 mmol/L (136-145) 05/07/18 07:45 Potassium 4.2 mmol/L (3.5-5.1) 05/07/18 07:45 Chloride 111 mmol/L (98-107) H 05/07/18 07:45 Carbon Dioxide 20 mmol/L (21-32) L 05/07/18 07:45 Anion Gap 8 MMOL/L (8-16) 05/07/18 07:45 BUN 13 mg/dL (7-18) 05/07/18 07:45 Creatinine 0.7 mg/dL (0.55-1.3) 05/07/18 07:45 Creat Clearance w eGFR 118.43 (>60) 05/07/18 07:45 Random Glucose 92 mg/dL (74-106) 05/07/18 07:45 Calcium 7.8 mg/dL (8.5-10.1) L 05/07/18 07:45 Total Bilirubin 0.9 mg/dL (0.2-1) 05/07/18 07:45 AST 18 U/L (15-37) 05/07/18 07:45 ALT 22 U/L (13-61) 05/07/18 07:45 Alkaline Phosphatase 108 U/L (45-117) 05/07/18 07:45 Total Protein 5.0 g/dl (6.4-8.2) L 05/07/18 07:45 Albumin 2.6 g/dl (3.4-5.0) L 05/07/18 07:45 CARDIAC ENZYMES Troponin I < 0.02 ng/ml (0.00-0.05) 04/29/18 15:30 Current Medications Generic Name Dose Route Start Last Admin Trade Name Freq PRN Reason Stop Dose Admin Acetaminophen 650 mg 05/03/18 11:29 05/05/18 22:55 Tylenol - PO 650 mg Q6H PRN Administration FEVER Vancomycin HCl 1,500 mg/ 500 mls @ 250 mls/hr 05/03/18 10:00 05/07/18 11:02 Dextrose IVPB 250 mls/hr Q24H JAYLENE Administration Protocol Meropenem 1 gm/ Dextrose 100 mls @ 200 mls/hr 05/03/18 18:00 05/07/18 10:12 IVPB 200 mls/hr Q8H-IV JAYLENE Administration Metronidazole 500 mg in 100 mls @ 100 mls/hr 05/03/18 19:00 05/07/18 14:12 Flagyl 500mg Premixed Ivpb - IVPB 100 mls/hr Q6H-IV JAYLENE Administration Potassium Chloride 40 meq/ 1,020 mls @ 100 mls/hr 05/04/18 17:15 05/07/18 14: 16 Sodium Chloride IVPB Not Given Q10H JAYLENE Non-Formulary Medication 100 mg 05/02/18 12:23 Posaconazole [Noxafil] PO ASDIR JAYLENE Tbo-Filgrastim 300 mcg 05/04/18 10:00 05/07/18 12:56 Granix - SQ 300 mcg DAILY JAYLENE Administration Valacyclovir HCl 1,000 mg 05/03/18 10:00 05/07/18 10:12 Valtrex - PO 1,000 mg DAILY JAYLENE Administration Home Medications Medication Instructions Recorded Eltrombopag Olamine [Promacta] 50 mg PO DAILY 04/29/18 Filgrastim [Neupogen] 300 mcg IJ ASDIR 04/29/18 Filgrastim-Sndz [Zarxio] 300 mcg IJ ASDIR 04/29/18 Levofloxacin [Levaquin] 500 mg PO ASDIR 04/29/18 Posaconazole [Noxafil] 100 mg PO ASDIR 04/29/18 Valacyclovir HCl [Valtrex -] 1,000 mg PO ASDIR 04/29/18 Laboratory Tests 05/02/18 05/02/18 05/05/18 09:35 15:00 07:00 Vancomycin Pre-Dose 14.5 L Parvovirus B19 IgG Ab Pending Parvovirus B19 IgM Ab Pending TB Test (QFT) Nil 0.10 TB Test (QFT) Mitogen >10.00 TB Test (QFT) Antigen 0.12 TB Test (QFT) Negative ASSESSMENT AND PLAN: Patient is a 52 y/o man with h/o B cell lymphoma, with recent admission to [facility] for AMS, SAH, polymicrobial bacteremia ( including MRSA ) and hematemesis. presented to ED. for having change of mental status, and was found to have aplastic crisis. # Posterior Bibasilar infiltrates on IV antibiotics continue # Interstitial infiltrate on IV antibiotic # Left upper lobe cavitary lesions ; quateferon is negative. afb is pending # Acute left perianal abscess (2.3x1.7x0.7) continue IV antibiotic # moderate to marked prostate enlargement # mild splenomegaly # Aplastic crisis: parvovirus B19 pending, neutropenic precaution and isolation and diet, s/p transfusion 5 packed of RBC, one unit of platelets, transfuse for Hb < 7 . cont vanc and meropenem , Dr Harrell; id on the case, vanco trough , so far the culture is negative, blood cx neg so far. continue neupogen daily. # Thrombocytopenia : improving 17K-->12K--> 33K-->s/p transfusion # s/p hypokalemia: repleted, improved # Transaminitis: improved Patient is refusing tx to [facility]. DVT Px: SVDs , can't AC due to platelets of 17K-->12K-->21K
--- NOTE | 2018-05-07 16:50 | PN ---
Progress Note, Physician History of Present Illness: Pt states he feels well and has no specific complaints. Has been afebrile for nearly 48 hrs. Cell counts remain low. No distress noted. - Current Medication List Current Medications: Active Medications Acetaminophen (Tylenol -) 650 mg PO Q6H PRN PRN Reason: FEVER Last Admin: 05/05/18 22:55 Dose: 650 mg Vancomycin HCl 1,500 mg/ (Dextrose) 500 mls @ 250 mls/hr IVPB Q24H JAYLENE; Protocol Last Admin: 05/07/18 11:02 Dose: 250 mls/hr Meropenem 1 gm/ Dextrose 100 mls @ 200 mls/hr IVPB Q8H-IV JAYLENE Last Admin: 05/07/18 10:12 Dose: 200 mls/hr Metronidazole (Flagyl 500mg Premixed Ivpb -) 500 mg in 100 mls @ 100 mls/hr IVPB Q6H-IV JAYLENE Last Admin: 05/07/18 14:12 Dose: 100 mls/hr Potassium Chloride 40 meq/ (Sodium Chloride) 1,020 mls @ 100 mls/hr IVPB Q10H JAYLENE Last Admin: 05/07/18 14:16 Dose: Not Given Non-Formulary Medication (Posaconazole [Noxafil]) 100 mg PO ASDIR [facility] Tbo-Filgrastim (Granix -) 300 mcg SQ DAILY [facility] Last Admin: 05/07/18 12:56 Dose: 300 mcg Valacyclovir HCl (Valtrex -) 1,000 mg PO DAILY [facility] Last Admin: 05/07/18 10:12 Dose: 1,000 mg - Objective Vital Signs: Vital Signs Temperature 97.8 F 05/07/18 15:00 Pulse Rate 76 05/07/18 15:00 Respiratory Rate 19 05/07/18 15:00 Blood Pressure 89/60 L 05/07/18 15:00 O2 Sat by Pulse Oximetry (%) 98 05/06/18 21:00 Constitutional: Yes: No Distress, Calm Cardiovascular: Yes: Regular Rate and Rhythm Respiratory: Yes: CTA Bilaterally Gastrointestinal: Yes: Normal Bowel Sounds, Soft Genitourinary: Yes: WNL Extremities: Yes: WNL Neurological: Yes: Alert Labs: CBC, BMP 05/07/18 07:45 05/07/18 07:45 INR, PTT INR 1.24 (0.83-1.09) H 05/04/18 06:30 Microbiology 05/03/18 09:15 Blood - Peripheral Venous Blood Culture - Preliminary NO GROWTH OBTAINED AFTER 96 HOURS, INCUBATION TO CONTINUE FOR 1 DAYS. 05/03/18 09:00 Blood - Peripheral Venous Blood Culture - Preliminary NO GROWTH OBTAINED AFTER 96 HOURS, INCUBATION TO CONTINUE FOR 1 DAYS. 04/29/18 15:30 Blood - Peripheral Venous Blood Culture - Final NO GROWTH AFTER 5 DAYS INCUBATION 04/29/18 15:30 Blood - Peripheral Venous Blood Culture - Final NO GROWTH AFTER 5 DAYS INCUBATION 05/03/18 09:00 Urine - Urine Clean Catch Urine Culture - Final 04/29/18 15:25 Urine - Urine Clean Catch Urine Culture - Final NO GROWTH OBTAINED Problem List - Problems (1) Altered mental status Code(s): R41.82 - ALTERED MENTAL STATUS, UNSPECIFIED (2) Aplastic anemia Code(s): D61.9 - APLASTIC ANEMIA, UNSPECIFIED (3) B-cell lymphoma Code(s): C85.10 - UNSPECIFIED B-CELL LYMPHOMA, UNSPECIFIED SITE Qualifiers: B-cell lymphoma type: diffuse large B-cell Lymphoma site: unspecified region Qualified Code(s): C83.30 - Diffuse large B-cell lymphoma, unspecified site (4) Dehydration Code(s): E86.0 - DEHYDRATION (5) Hyperbilirubinemia Code(s): E80.6 - OTHER DISORDERS OF BILIRUBIN METABOLISM (6) Neutropenic sepsis Code(s): A41.9 - SEPSIS, UNSPECIFIED ORGANISM; D70.9 - NEUTROPENIA, UNSPECIFIED Assessment/Plan Neutropenic fever PNA Lung cavitation Aplastic crisis Perianal abscess B cell Lymphoma Hx SAH -- Pt now afebrile -- continue current broad antimicrobial coverage -- Parvovirus B-19 testing pending -- Quantiferon testing pending -- maintain airborne precautions -- reassess for resolution of abscess -- Pt currently appears stable, monitor closely Heme/Onc f/u
[2018-05-08] MEDS: POTASSIUM CHLORIDE 40 MEQ in SODIUM CHLORIDE 1,000 ML IVPB SCH (01:50)
[2018-05-08] MEDS: MEROPENEM 1 GM in DEXTROSE 5%-WATER 100 ML IVPB SCH ×2 (01:53→11:07)
[2018-05-08] MEDS ORDERED: SODIUM CHLORIDE 500 ML IV STA (09:28)
[2018-05-08] MEDS ORDERED: PT OWN MED DRAWER 7, Y5N ONE ×2 (09:43→11:29)
[2018-05-08] MEDS: valACYclovir HCL 500 MG TABLET (FP) PO SCH (09:54)
[2018-05-08] MEDS: TBO-FILGRASTIM 300 MCG/0.5 ML DISP.SYRINGE SQ SCH (09:54)
[2018-05-08 11:00] LABS: BASO % 0.5 % (0-2.0); HEMATOCRIT 21.1 % (35.4-49); HEMOGLOBIN 7.1 GM/dL (11.7-16.9); MCH 28.2 pg (25.7-33.7); MCHC 33.9 g/dl (32.0-35.9); MEAN CELL VOLUME 83.3 fl (80-96); MEAN PLT VOLUME 8.3 fl (7.5-11.1); MONO % 11.2 % (3.8-10.2); NEUT % 43.3 % (42.8-82.8); PLATELET COUNT 12 K/MM3 (134-434); RBC 2.53 M/mm3 (4.00-5.60); RDW 15.8 % (11.9-15.9)
[2018-05-08 11:21] LABS: WHITE BLOOD COUNT 1.4 K/mm3 (4.0-10.0)
[2018-05-08 11:34] LABS: ANION GAP 7 MMOL/L (8-16); BLOOD UREA NITROGEN 14 mg/dL (7-18); CALCIUM 7.9 mg/dL (8.5-10.1); CHLORIDE 112 mmol/L (98-107); CO2 22 mmol/L (21-32); CREATININE 0.7 mg/dL (0.55-1.3); GLUCOSE,RANDOM 120 mg/dL (74-106); MAGNESIUM 1.2 mg/dL (1.8-2.4); PHOSPHOROUS 2.4 mg/dL (2.5-4.9); POTASSIUM 5.1 mmol/L (3.5-5.1); SODIUM 141 mmol/L (136-145)
[2018-05-08] MEDS: VANCOMYCIN HCL 1,500 MG in DEXTROSE 5%-WATER - 500 ML IVPB SCH (11:39)
--- NOTE | 2018-05-08 12:11 | PN ---
Physical Exam: SUBJECTIVE: Patient seen and examined at bedside. No fevers, overnight, no acute complaints. OBJECTIVE: Vital Signs Period Temp Pulse Resp BP Sys/Borjas Pulse Ox Last 24 Hr 97.7 F-98.5 F 76-89 18-19 83-97/52-65 98 GENERAL: The patient is awake alert and oriented HEAD: Normal with no signs of trauma. EYES: Pupils equal, round and reactive to light ENT: poor dentition, otherwise normal oropharynx, no peticheae NECK: Trachea midline, full range of motion, supple, no masses palpated LUNGS: Breath sounds equal but coarse, no crackles noted bilaterally HEART: tachycardic without murmur ABDOMEN: Soft, nontender, nondistended, bowel sounds present, no masses palpated EXTREMITIES: 2+ pulses, warm, well-perfused, no edema. SKIN: Warm, dry, normal turgor, no rashes or lesions noted Laboratory Results - last 24 hr 05/05/18 05/08/18 05/08/18 07:00 10:26 10:26 WBC 1.4 L* RBC 2.53 L Hgb 7.1 L Hct 21.1 L MCV 83.3 MCH 28.2 MCHC 33.9 RDW 15.8 Plt Count 12 L* MPV 8.3 Absolute Neuts (auto) 0.6 L Neutrophils % 43.3 Lymphocytes % 40.0 Monocytes % 11.2 H Eosinophils % 5.0 H Basophils % 0.5 Nucleated RBC % 0 Sodium 141 Potassium 5.1 Chloride 112 H Carbon Dioxide 22 Anion Gap 7 L BUN 14 Creatinine 0.7 Creat Clearance w eGFR 118.43 Random Glucose 120 H Calcium 7.9 L Phosphorus 2.4 L Magnesium 1.2 L TB Test (QFT) Nil 0.10 TB Test (QFT) Mitogen >10.00 TB Test (QFT) Antigen 0.12 TB Test (QFT) Negative TB Positive Criteria Active Medications Generic Name Dose Route Start Last Admin Trade Name Freq PRN Reason Stop Dose Admin Acetaminophen 650 mg 05/03/18 11:29 05/05/18 22:55 Tylenol - PO 650 mg Q6H PRN Administration FEVER Vancomycin HCl 1,500 mg/ 500 mls @ 250 mls/hr 05/03/18 10:00 05/08/18 11:39 Dextrose IVPB 250 mls/hr Q24H JAYLENE Administration Protocol Meropenem 1 gm/ Dextrose 100 mls @ 200 mls/hr 05/03/18 18:00 05/08/18 11:07 IVPB 200 mls/hr Q8H-IV JAYLENE Administration Metronidazole 500 mg in 100 mls @ 100 mls/hr 05/03/18 19:00 05/08/18 09:19 Flagyl 500mg Premixed Ivpb - IVPB 100 mls/hr Q6H-IV JAYLENE Administration Sodium Chloride 500 mls @ 500 mls/hr 05/08/18 09:28 05/08/18 10:04 Normal Saline - IV 05/08/18 10:27 500 mls/hr ASDIR STA Administration Non-Formulary Medication 100 mg 05/02/18 12:23 Posaconazole [Noxafil] PO ASDIR JAYLENE Tbo-Filgrastim 300 mcg 05/04/18 10:00 05/08/18 09:54 Granix - SQ 300 mcg DAILY JAYLENE Administration Valacyclovir HCl 1,000 mg 05/03/18 10:00 05/08/18 09:54 Valtrex - PO 1,000 mg DAILY JAYLENE Administration ASSESSMENT/PLAN: 52 year old male with a hx of 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 (most recently 02/15) with aplastic crisis presented for altered mental status, multiple falls Aplastic crisis: possibly secondary to bone marrow destruction from chemotherapy , platelets low today at 12 -s/p multiple transfusions, transfuse 1U platelets now -continue to transfuse to hgb goal of 7 -chest/abd pelvis CT shows PNA and perirenal abscess extending to anus and cavitary lesion in the NORA -transfuse platelets if <15 -continue to monitor H&H -maybe patient needs new marrow examination, consider palliative options Neutropenic Sepsis: febrile overnight, afebrile today -continue meropenem, vancomycin, valacyclovir, flagyl -cultures negative -quant negative, primary team sending AFBs -monitor vital signs Altered Mental Status: resolved head ct (-) for acute disease Continue to treat with abx 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 -chemo held due to low platelets/aplastic crisis -will need evaluation after acute symptoms resolve Hypokalemia replete potassium Lactic Acidosis: resolved FEN no standing fluids follow lights diet Prophylaxis -SCD prophylaxis Disposition -continue to monitor on med surg Visit type - Emergency Visit Emergency Visit: No - New Patient This patient is new to me today: No - Critical Care Critical Care patient: No
--- NOTE | 2018-05-08 12:50 | PN ---
Progress Note, Physician History of Present Illness: patient remaining afebrile no new issues - Current Medication List Current Medications: Active Medications Acetaminophen (Tylenol -) 650 mg PO Q6H PRN PRN Reason: FEVER Last Admin: 05/05/18 22:55 Dose: 650 mg Vancomycin HCl 1,500 mg/ (Dextrose) 500 mls @ 250 mls/hr IVPB Q24H JAYLENE; Protocol Last Admin: 05/08/18 11:39 Dose: 250 mls/hr Meropenem 1 gm/ Dextrose 100 mls @ 200 mls/hr IVPB Q8H-IV JAYLENE Last Admin: 05/08/18 11:07 Dose: 200 mls/hr Metronidazole (Flagyl 500mg Premixed Ivpb -) 500 mg in 100 mls @ 100 mls/hr IVPB Q6H-IV JAYLENE Last Admin: 05/08/18 09:19 Dose: 100 mls/hr Non-Formulary Medication (Posaconazole [Noxafil]) 100 mg PO ASDIR [facility] Tbo-Filgrastim (Granix -) 300 mcg SQ DAILY [facility] Last Admin: 05/08/18 09:54 Dose: 300 mcg Valacyclovir HCl (Valtrex -) 1,000 mg PO DAILY JAYLENE Last Admin: 05/08/18 09:54 Dose: 1,000 mg - Objective Vital Signs: Vital Signs Temperature 97.8 F 05/08/18 06:59 Pulse Rate 89 05/08/18 06:59 Respiratory Rate 18 05/08/18 06:59 Blood Pressure 83/52 L 05/08/18 06:59 O2 Sat by Pulse Oximetry (%) 98 05/07/18 21:00 Constitutional: Yes: No Distress, Calm Cardiovascular: Yes: Regular Rate and Rhythm Respiratory: Yes: Regular, CTA Bilaterally Gastrointestinal: Yes: Normal Bowel Sounds, Soft Musculoskeletal: Yes: WNL Extremities: Yes: WNL Psychiatric: Yes: Alert, Oriented Labs: CBC, BMP 05/08/18 10:26 05/08/18 10:26 INR, PTT INR 1.24 (0.83-1.09) H 05/04/18 06:30 Assessment/Plan 52 yo M w/ pmhx of 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 Problem List - Problem (1) Aplastic anemia (2) B-cell lymphoma 3 sepsis 4 fever plan continue emelyn and joshua will d/c emelyn tomorrow send 3 sputum samples to r/o tb
--- NOTE | 2018-05-08 12:55 | PN ---
Physical Exam: SUBJECTIVE: Patient seen and examined at bedside. No fever overnight. OBJECTIVE: Vital Signs Period Temp Pulse Resp BP Sys/Borjas Pulse Ox Last 24 Hr 97.7 F-98.5 F 76-89 18-19 83-97/52-65 98 GENERAL: NAD HEAD: Atraumatic/Normocephalic EYES: EOMI Sclera Clear NECK: Trachea midline, full range of motion, supple. LUNGS: CTAB HEART: RRR nl s1s2 ABDOMEN: Soft NDNT EXTREMITIES: No CCE. Muscle wasting b/l lower extremities. Laboratory Results - last 24 hr 05/05/18 05/08/18 05/08/18 07:00 10:26 10:26 WBC 1.4 L* RBC 2.53 L Hgb 7.1 L Hct 21.1 L MCV 83.3 MCH 28.2 MCHC 33.9 RDW 15.8 Plt Count 12 L* MPV 8.3 Absolute Neuts (auto) 0.6 L Neutrophils % 43.3 Lymphocytes % 40.0 Monocytes % 11.2 H Eosinophils % 5.0 H Basophils % 0.5 Nucleated RBC % 0 Sodium 141 Potassium 5.1 Chloride 112 H Carbon Dioxide 22 Anion Gap 7 L BUN 14 Creatinine 0.7 Creat Clearance w eGFR 118.43 Random Glucose 120 H Calcium 7.9 L Phosphorus 2.4 L Magnesium 1.2 L TB Test (QFT) Nil 0.10 TB Test (QFT) Mitogen >10.00 TB Test (QFT) Antigen 0.12 TB Test (QFT) Negative TB Positive Criteria Active Medications Generic Name Dose Route Start Last Admin Trade Name Freq PRN Reason Stop Dose Admin Acetaminophen 650 mg 05/03/18 11:29 05/05/18 22:55 Tylenol - PO 650 mg Q6H PRN Administration FEVER Vancomycin HCl 1,500 mg/ 500 mls @ 250 mls/hr 05/03/18 10:00 05/08/18 11:39 Dextrose IVPB 250 mls/hr Q24H JAYLENE Administration Protocol Meropenem 1 gm/ Dextrose 100 mls @ 200 mls/hr 05/03/18 18:00 05/08/18 11:07 IVPB 200 mls/hr Q8H-IV JAYLENE Administration Metronidazole 500 mg in 100 mls @ 100 mls/hr 05/03/18 19:00 05/08/18 09:19 Flagyl 500mg Premixed Ivpb - IVPB 100 mls/hr Q6H-IV JAYLENE Administration Non-Formulary Medication 100 mg 05/02/18 12:23 Posaconazole [Noxafil] PO ASDIR JAYLENE Tbo-Filgrastim 300 mcg 05/04/18 10:00 05/08/18 09:54 Granix - SQ 300 mcg DAILY JAYLENE Administration Valacyclovir HCl 1,000 mg 05/03/18 10:00 05/08/18 09:54 Valtrex - PO 1,000 mg DAILY JAYLENE Administration ASSESSMENT/PLAN: Unfortunate 52 y/o man with h/o B cell lymphoma, with recent admission to [facility] for AMS, SAH, polymicrobial bacteremia (including MRSA ) and hematemesis. Presented to [facility] as he was found with AMS by his niece. He was found to have aplastic crisis. #Aplastic crisis likely 2/2 chemotherapy -s/p 4U pRBC, 1U pl upon admission -H/H today 7.1/21.1; Abs neuts 0.6 (May 08, 2018) -Ordered 1 u platelets and repeat cbc . -Goal Hgb >7, transfuse PRN. -Neutropenic precautions -Check parvovirus B19 -Dr Leonard on board -CTAP--> PNA and perirenal abscess extending to anus Granix 300 mcg SQ Daily -Quantiferon negative #Diffuse Large B Cell Lymphoma - hold chemotherapy agents -Per ID, Merrem, flagyl, and Vanco Day 6 -Blood and Urine Cultures negative FEN -no standing fluids -Monitor Electrolytes -Soft Diet Dispo -Med-Surg Visit type - Emergency Visit Emergency Visit: Yes ED Registration Date: 04/29/18 Care time: The patient presented to the Emergency Department on the above date and was hospitalized for further evaluation of their emergent condition. - New Patient This patient is new to me today: No - Critical Care Critical Care patient: No - Discharge Referral Referred to [facility] Med P.C.: No
[2018-05-08 14:26] LABS: ANISOCYTOSIS 2+; MACROCYTOSIS 0; PLATELET ESTIMATE DECREASED; TEAR DROP CELLS 1+
[2018-05-08 15:34] LABS: HEMATOCRIT 19.8 % (35.4-49); HEMOGLOBIN 6.7 GM/dL (11.7-16.9); MCH 27.9 pg (25.7-33.7); MCHC 33.9 g/dl (32.0-35.9); MEAN CELL VOLUME 82.3 fl (80-96); MEAN PLT VOLUME 8.7 fl (7.5-11.1); PLATELET COUNT 10 K/MM3 (134-434); RDW 15.8 % (11.9-15.9)
[2018-05-08 15:43] LABS: WHITE BLOOD COUNT 1.6 K/mm3 (4.0-10.0)
--- NOTE | 2018-05-08 21:04 | PN ---
Teaching Attending Note Name of Resident: Rojelio Alonso ATTENDING PHYSICIAN STATEMENT I saw and evaluated the patient. I reviewed the resident's note and discussed the case with the resident. I agree with the resident's findings and plan as documented. SUBJECTIVE: Patient is feeling better but continues to drop his platelets. OBJECTIVE: Vital Signs Temperature 98.0 F 05/08/18 17:32 Pulse Rate 92 H 05/08/18 17:32 Respiratory Rate 18 05/08/18 17:32 Blood Pressure 98/57 L 05/08/18 17:32 O2 Sat by Pulse Oximetry (%) 98 05/08/18 09:00 GENERAL: awake, alert, with no NAD, lying in bed HEAD: Atraumatic/Normocephalic EYES: EOMI, PERRLA NECK: Trachea midline, full range of motion, supple. LUNGS: decreased BS at basis otherwise clear HEART: tachycardic, nl s1s2, ABDOMEN: Soft, ND, NT EXTREMITIES: No CCE : [place] catheter CBCD WBC 1.6 K/mm3 (4.0-10.0) L* 05/08/18 14:30 RBC 2.40 M/mm3 (4.00-5.60) L 05/08/18 14:30 Hgb 6.7 GM/dL (11.7-16.9) L* 05/08/18 14:30 Hct 19.8 % (35.4-49) L 05/08/18 14:30 MCV 82.3 fl (80-96) 05/08/18 14:30 MCHC 33.9 g/dl (32.0-35.9) 05/08/18 14:30 RDW 15.8 % (11.9-15.9) 05/08/18 14:30 Plt Count 10 K/MM3 (134-434) L* 05/08/18 14:30 MPV 8.7 fl (7.5-11.1) 05/08/18 14:30 CMP Sodium 141 mmol/L (136-145) 05/08/18 10:26 Potassium 5.1 mmol/L (3.5-5.1) 05/08/18 10:26 Chloride 112 mmol/L (98-107) H 05/08/18 10:26 Carbon Dioxide 22 mmol/L (21-32) 05/08/18 10:26 Anion Gap 7 MMOL/L (8-16) L 05/08/18 10:26 BUN 14 mg/dL (7-18) 05/08/18 10:26 Creatinine 0.7 mg/dL (0.55-1.3) 05/08/18 10:26 Creat Clearance w eGFR 118.43 (>60) 05/08/18 10:26 Random Glucose 120 mg/dL (74-106) H 05/08/18 10:26 Calcium 7.9 mg/dL (8.5-10.1) L 05/08/18 10:26 Total Bilirubin 0.9 mg/dL (0.2-1) 05/07/18 07:45 AST 18 U/L (15-37) 05/07/18 07:45 ALT 22 U/L (13-61) 05/07/18 07:45 Alkaline Phosphatase 108 U/L (45-117) 05/07/18 07:45 Total Protein 5.0 g/dl (6.4-8.2) L 05/07/18 07:45 Albumin 2.6 g/dl (3.4-5.0) L 05/07/18 07:45 CARDIAC ENZYMES Troponin I < 0.02 ng/ml (0.00-0.05) 04/29/18 15:30 Current Medications Generic Name Dose Route Start Last Admin Trade Name Freq PRN Reason Stop Dose Admin Acetaminophen 650 mg 05/03/18 11:29 05/05/18 22:55 Tylenol - PO 650 mg Q6H PRN Administration FEVER Vancomycin HCl 1,500 mg/ 500 mls @ 250 mls/hr 05/03/18 10:00 05/08/18 11:39 Dextrose IVPB 250 mls/hr Q24H JAYLENE Administration Protocol Meropenem 1 gm/ Dextrose 100 mls @ 200 mls/hr 05/03/18 18:00 05/08/18 11:07 IVPB 200 mls/hr Q8H-IV JAYLENE Administration Metronidazole 500 mg in 100 mls @ 100 mls/hr 05/03/18 19:00 05/08/18 16:45 Flagyl 500mg Premixed Ivpb - IVPB 100 mls/hr Q6H-IV JAYLENE Administration Non-Formulary Medication 100 mg 05/02/18 12:23 Posaconazole [Noxafil] PO ASDIR JAYLENE Tbo-Filgrastim 300 mcg 05/04/18 10:00 05/08/18 09:54 Granix - SQ 300 mcg DAILY JAYLENE Administration Valacyclovir HCl 1,000 mg 05/03/18 10:00 05/08/18 09:54 Valtrex - PO 1,000 mg DAILY JAYLENE Administration Home Medications Medication Instructions Recorded Eltrombopag Olamine [Promacta] 50 mg PO DAILY 04/29/18 Filgrastim [Neupogen] 300 mcg IJ ASDIR 04/29/18 Filgrastim-Sndz [Zarxio] 300 mcg IJ ASDIR 04/29/18 Levofloxacin [Levaquin] 500 mg PO ASDIR 04/29/18 Posaconazole [Noxafil] 100 mg PO ASDIR 04/29/18 Valacyclovir HCl [Valtrex -] 1,000 mg PO ASDIR 04/29/18 ASSESSMENT AND PLAN: Patient is a 52 y/o man with h/o B cell lymphoma, with recent admission to [facility] for AMS, SAH, polymicrobial bacteremia ( including MRSA ) and hematemesis. presented to ED. for having change of mental status, and was found to have aplastic crisis. # Pancytopenia: transfuse as needed basis on neupogen , hematology on the case. # Posterior Bibasilar infiltrates on IV antibiotics continue # Left upper lobe cavitary lesions ; quateferon is negative. afb is pending # Acute left perianal abscess (2.3x1.7x0.7) continue IV antibiotic # moderate to marked prostate enlargement # mild splenomegaly # Aplastic crisis: parvovirus B19 pending, neutropenic precaution and isolation and diet, s/p transfusion 5 packed of RBC, one unit of platelets, transfuse for Hb < 7 . cont vanc and meropenem , Dr Harrell; id on the case, vanco trough , so far the culture is negative, blood cx neg so far. continue neupogen daily. # Thrombocytopenia : improving 17K-->12K--> 33K-->10K s/p transfusion , dropped again will transfuse as needed. # s/p hypokalemia: repleted, improved # Transaminitis: improved DVT Px: SVDs , can't AC due to platelets of 17K-->12K-->21-->10K
--- NOTE | 2018-05-08 22:51 | PN ---
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 ct scans show cavitary lesion dano/rt. ul infiltrates/perirectal abscess on broadspectrum abx ? antifungal will consult pulmonary team r/o afb transfusion support overall poor prognosis with aplastic picture/poor performance status/ uncontrolled infection, limiting treatment options
[2018-05-09] MEDS: MEROPENEM 1 GM in DEXTROSE 5%-WATER 100 ML IVPB SCH ×5 (01:58→18:37)
[2018-05-09 07:06] LABS: BASO % 0.3 % (0-2.0); EOS % 4.4 % (0-4.5); HEMATOCRIT 19.7 % (35.4-49); LYMPH % 44.8 % (8-40); MCH 28.4 pg (25.7-33.7); MCHC 34.7 g/dl (32.0-35.9); MEAN CELL VOLUME 81.8 fl (80-96); MEAN PLT VOLUME 8.7 fl (7.5-11.1); MONO % 10.7 % (3.8-10.2); NEUT % 39.8 % (42.8-82.8); RBC 2.41 M/mm3 (4.00-5.60); RDW 15.6 % (11.9-15.9)
[2018-05-09 07:58] LABS: ANION GAP 7 MMOL/L (8-16); BLOOD UREA NITROGEN 16 mg/dL (7-18); CHLORIDE 113 mmol/L (98-107); CO2 21 mmol/L (21-32); CREATININE 0.6 mg/dL (0.55-1.3); GLUCOSE,RANDOM 96 mg/dL (74-106); MAGNESIUM 1.5 mg/dL (1.8-2.4); PHOSPHOROUS 2.5 mg/dL (2.5-4.9); POTASSIUM 4.1 mmol/L (3.5-5.1); SODIUM 141 mmol/L (136-145)
[2018-05-09 08:38] LABS: HEMOGLOBIN 6.8 GM/dL (11.7-16.9); PLATELET COUNT 31 K/MM3 (134-434); WHITE BLOOD COUNT 1.7 K/mm3 (4.0-10.0)
--- NOTE | 2018-05-09 08:44 | PN ---
Teaching Attending Note Name of Resident: Rojelio Alonso ATTENDING PHYSICIAN STATEMENT I saw and evaluated the patient. I reviewed the resident's note and discussed the case with the resident. I agree with the resident's findings and plan as documented. SUBJECTIVE: Patient is feeling better but patient received another unit of platelet. OBJECTIVE: Vital Signs Temperature 97.7 F 05/09/18 06:46 Pulse Rate 93 H 05/09/18 06:46 Respiratory Rate 20 05/09/18 06:46 Blood Pressure 106/53 L 05/09/18 06:46 O2 Sat by Pulse Oximetry (%) 98 05/08/18 21:00 GENERAL: awake, alert, with no NAD, lying in bed HEAD: Atraumatic/Normocephalic EYES: EOMI, PERRLA NECK: Trachea midline, full range of motion, supple. LUNGS: decreased BS at basis otherwise clear HEART: tachycardic, nl s1s2, ABDOMEN: Soft, ND, NT EXTREMITIES: No CCE : [place] catheter CBCD WBC 1.7 K/mm3 (4.0-10.0) L* 05/09/18 06:00 RBC 2.41 M/mm3 (4.00-5.60) L 05/09/18 06:00 Hgb 6.8 GM/dL (11.7-16.9) L* 05/09/18 06:00 Hct 19.7 % (35.4-49) L 05/09/18 06:00 MCV 81.8 fl (80-96) 05/09/18 06:00 MCHC 34.7 g/dl (32.0-35.9) 05/09/18 06:00 RDW 15.6 % (11.9-15.9) 05/09/18 06:00 Plt Count 31 K/MM3 (134-434) L* D 05/09/18 06:00 MPV 8.7 fl (7.5-11.1) 05/09/18 06:00 CMP Sodium 141 mmol/L (136-145) 05/09/18 06:00 Potassium 4.1 mmol/L (3.5-5.1) 05/09/18 06:00 Chloride 113 mmol/L (98-107) H 05/09/18 06:00 Carbon Dioxide 21 mmol/L (21-32) 05/09/18 06:00 Anion Gap 7 MMOL/L (8-16) L 05/09/18 06:00 BUN 16 mg/dL (7-18) 05/09/18 06:00 Creatinine 0.6 mg/dL (0.55-1.3) 05/09/18 06:00 Creat Clearance w eGFR 141.48 (>60) 05/09/18 06:00 Random Glucose 96 mg/dL (74-106) 05/09/18 06:00 Calcium 8.0 mg/dL (8.5-10.1) L 05/09/18 06:00 Total Bilirubin 0.9 mg/dL (0.2-1) 05/07/18 07:45 AST 18 U/L (15-37) 05/07/18 07:45 ALT 22 U/L (13-61) 05/07/18 07:45 Alkaline Phosphatase 108 U/L (45-117) 05/07/18 07:45 Total Protein 5.0 g/dl (6.4-8.2) L 05/07/18 07:45 Albumin 2.6 g/dl (3.4-5.0) L 05/07/18 07:45 CARDIAC ENZYMES Troponin I < 0.02 ng/ml (0.00-0.05) 04/29/18 15:30 Current Medications Generic Name Dose Route Start Last Admin Trade Name Freq PRN Reason Stop Dose Admin Acetaminophen 650 mg 05/03/18 11:29 05/05/18 22:55 Tylenol - PO 650 mg Q6H PRN Administration FEVER Vancomycin HCl 1,500 mg/ 500 mls @ 250 mls/hr 05/03/18 10:00 05/08/18 11:39 Dextrose IVPB 250 mls/hr Q24H JAYLENE Administration Protocol Meropenem 1 gm/ Dextrose 100 mls @ 200 mls/hr 05/03/18 18:00 05/09/18 01:58 IVPB 200 mls/hr Q8H-IV JAYLENE Administration Metronidazole 500 mg in 100 mls @ 100 mls/hr 05/03/18 19:00 05/09/18 02:46 Flagyl 500mg Premixed Ivpb - IVPB 100 mls/hr Q6H-IV JAYLENE Administration Non-Formulary Medication 100 mg 05/02/18 12:23 Posaconazole [Noxafil] PO ASDIR JAYLENE Tbo-Filgrastim 300 mcg 05/04/18 10:00 05/08/18 09:54 Granix - SQ 300 mcg DAILY JAYLENE Administration Valacyclovir HCl 1,000 mg 05/03/18 10:00 05/08/18 09:54 Valtrex - PO 1,000 mg DAILY JAYLENE Administration Home Medications Medication Instructions Recorded Eltrombopag Olamine [Promacta] 50 mg PO DAILY 04/29/18 Filgrastim [Neupogen] 300 mcg IJ ASDIR 04/29/18 Filgrastim-Sndz [Zarxio] 300 mcg IJ ASDIR 04/29/18 Levofloxacin [Levaquin] 500 mg PO ASDIR 04/29/18 Posaconazole [Noxafil] 100 mg PO ASDIR 04/29/18 Valacyclovir HCl [Valtrex -] 1,000 mg PO ASDIR 04/29/18 ASSESSMENT AND PLAN: Patient is a 52 y/o man with h/o B cell lymphoma, with recent admission to [facility] for AMS, SAH, polymicrobial bacteremia ( including MRSA ) and hematemesis. presented to ED. for having change of mental status, and was found to have aplastic crisis. # Pancytopenia:s/p plateletets transfusion as needed basis on neupogen as well. hematology on the case. As per loan secretary ,patient can be discharged back to [facility] once no further fever noted, will try to tranfer to [facility] again # Posterior Bibasilar infiltrates on IV antibiotics continue # Left upper lobe cavitary lesions ; quateferon is negative. afb is pending # Acute left perianal abscess (2.3x1.7x0.7) continue IV antibiotic # moderate to marked prostate enlargement # mild splenomegaly # Aplastic crisis: parvovirus B19 pending, neutropenic precaution and isolation and diet, s/p transfusion 5 packed of RBC, one unit of platelets, transfuse for Hb < 7 . cont vanc and meropenem , Dr Harrell; id on the case, vanco trough , so far the culture is negative, blood cx neg so far. continue neupogen daily. # Thrombocytopenia : improving 17K-->12K--> 33K-->10K--> 31k s/p transfusion , transfuse as needed. # s/p hypokalemia: repleted, improved # Transaminitis: improved DVT Px: SVDs , can't AC due to platelets of 17K-->12K-->21-->10K-->31k received 5 units of PRBC and 2 units of platelets and on Neupogen.
[2018-05-09] MEDS ORDERED: MAGNESIUM SULF 50% (8.12 MEQ/2 ML-1 GM VIAL) IVPB ONE (09:00)
[2018-05-09] MEDS ORDERED: MAGNESIUM OXIDE 400 MG TABLET (FP) PO ONE (09:41)
[2018-05-09 11:17] LABS: ANISOCYTOSIS 1+; MACROCYTOSIS 0; OVALOCYTE 1+; PLATELET ESTIMATE DECREASED
[2018-05-09] MEDS ORDERED: PT OWN MED DRAWER 7, Y5N ONE ×3 (11:58→19:40)
[2018-05-09] MEDS: valACYclovir HCL 500 MG TABLET (FP) PO SCH (12:04)
--- NOTE | 2018-05-09 12:12 | PN ---
Progress Note, Physician History of Present Illness: stable being transfused no fevers noted still cough - Current Medication List Current Medications: Active Medications Acetaminophen (Tylenol -) 650 mg PO Q6H PRN PRN Reason: FEVER Last Admin: 05/05/18 22:55 Dose: 650 mg Meropenem 1 gm/ Dextrose 100 mls @ 200 mls/hr IVPB Q8H-IV [facility] Last Admin: 05/09/18 12:06 Dose: Not Given Metronidazole (Flagyl 500mg Premixed Ivpb -) 500 mg in 100 mls @ 100 mls/hr IVPB Q6H-IV [facility] Last Admin: 05/09/18 09:43 Dose: 100 mls/hr Non-Formulary Medication (Posaconazole [Noxafil]) 100 mg PO ASDIR [facility] Tbo-Filgrastim (Granix -) 300 mcg SQ DAILY [facility] Last Admin: 05/08/18 09:54 Dose: 300 mcg Valacyclovir HCl (Valtrex -) 1,000 mg PO DAILY [facility] Last Admin: 05/09/18 12:04 Dose: 1,000 mg - Objective Vital Signs: Vital Signs Temperature 97.7 F 05/09/18 06:46 Pulse Rate 93 H 05/09/18 06:46 Respiratory Rate 20 05/09/18 06:46 Blood Pressure 106/53 L 05/09/18 06:46 O2 Sat by Pulse Oximetry (%) 98 05/08/18 21:00 Constitutional: Yes: No Distress, Calm Cardiovascular: Yes: Regular Rate and Rhythm Respiratory: Yes: Regular, On Nasal O2, Rhonchi Gastrointestinal: Yes: Normal Bowel Sounds, Soft Neurological: Yes: Alert, Oriented Labs: CBC, BMP 05/09/18 06:00 05/09/18 06:00 INR, PTT INR 1.24 (0.83-1.09) H 05/04/18 06:30 Assessment/Plan 52 yo M w/ pmhx of 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 Problem List - Problem (1) Aplastic anemia (2) B-cell lymphoma 3 sepsis 4 fever plan stopped vanco continue current mgmt transfusion as needed rest as per the team
--- NOTE | 2018-05-09 13:13 | PN ---
Physical Exam: SUBJECTIVE: Patient seen and examined at bedside. No fevers overnight. Resting comfortably. Denies shortness of breath. OBJECTIVE: Vital Signs Period Temp Pulse Resp BP Sys/Borjas Pulse Ox Last 24 Hr 97.6 F-98.1 F 88-94 17-20 88-106/49-57 98 GENERAL: NAD HEAD: Atraumatic/Normocephalic EYES: EOMI Sclera Clear NECK: Trachea midline, full range of motion, supple. LUNGS: CTAB Good inspiratory effort HEART: RRR nl s1s2 ABDOMEN: Soft NDNT EXTREMITIES: No CCE. Muscle wasting b/l lower extremities. Laboratory Results - last 24 hr 05/08/18 05/08/18 05/08/18 10:26 12:06 14:30 WBC 1.6 L* RBC 2.40 L Hgb 6.7 L* Hct 19.8 L MCV 82.3 MCH 27.9 MCHC 33.9 RDW 15.8 Plt Count 10 L* MPV 8.7 Absolute Neuts (auto) Neutrophils % Neutrophils % (Manual) 26.5 L D Band Neutrophils % 2.0 Lymphocytes % Lymphocytes % (Manual) 50.0 H D Monocytes % Monocytes % (Manual) 3 L Eosinophils % Eosinophils % (Manual) 8.2 H D Basophils % Basophils % (Manual) 0.0 Myelocytes % (Man) 0 Promyelocytes % (Man) 0 Blast Cells % (Manual) 0 Nucleated RBC % Metamyelocytes 0 Hypochromia 0 Platelet Estimate Decreased Polychromasia 0 Poikilocytosis 1+ Anisocytosis 2+ Microcytosis 1+ Macrocytosis 0 Tear Drop Cells 1+ Ovalocytes Forreston Cells 1+ Sodium Potassium Chloride Carbon Dioxide Anion Gap BUN Creatinine Creat Clearance w eGFR Random Glucose Calcium Phosphorus Magnesium Blood Type A POSITIVE Antibody Screen Negative Crossmatch See Detail 05/09/18 05/09/18 06:00 06:00 WBC 1.7 L* RBC 2.41 L Hgb 6.8 L* Hct 19.7 L MCV 81.8 MCH 28.4 MCHC 34.7 RDW 15.6 Plt Count 31 L* D MPV 8.7 Absolute Neuts (auto) 0.7 L Neutrophils % 39.8 L Neutrophils % (Manual) 40.6 L D Band Neutrophils % 7.9 Lymphocytes % 44.8 H Lymphocytes % (Manual) 37.6 D Monocytes % 10.7 H Monocytes % (Manual) 8 D Eosinophils % 4.4 Eosinophils % (Manual) 4.0 Basophils % 0.3 Basophils % (Manual) 0.0 Myelocytes % (Man) 0 Promyelocytes % (Man) 0 Blast Cells % (Manual) 0 Nucleated RBC % 0 Metamyelocytes 0 Hypochromia 0 Platelet Estimate Decreased Polychromasia 0 Poikilocytosis 1+ Anisocytosis 1+ Microcytosis 2+ Macrocytosis 0 Tear Drop Cells Ovalocytes 1+ Laura Cells Sodium 141 Potassium 4.1 Chloride 113 H Carbon Dioxide 21 Anion Gap 7 L BUN 16 Creatinine 0.6 Creat Clearance w eGFR 141.48 Random Glucose 96 Calcium 8.0 L Phosphorus 2.5 Magnesium 1.5 L Blood Type Antibody Screen Crossmatch Active Medications Generic Name Dose Route Start Last Admin Trade Name Freq PRN Reason Stop Dose Admin Acetaminophen 650 mg 05/03/18 11:29 05/05/18 22:55 Tylenol - PO 650 mg Q6H PRN Administration FEVER Meropenem 1 gm/ Dextrose 100 mls @ 200 mls/hr 05/03/18 18:00 05/09/18 12:06 IVPB Not Given Q8H-IV JAYLENE Metronidazole 500 mg in 100 mls @ 100 mls/hr 05/03/18 19:00 05/09/18 09:43 Flagyl 500mg Premixed Ivpb - IVPB 100 mls/hr Q6H-IV JAYLENE Administration Non-Formulary Medication 100 mg 05/02/18 12:23 Posaconazole [Noxafil] PO ASDIR JAYLENE Tbo-Filgrastim 300 mcg 05/04/18 10:00 05/08/18 09:54 Granix - SQ 300 mcg DAILY JAYLENE Administration Valacyclovir HCl 1,000 mg 05/03/18 10:00 05/09/18 12:04 Valtrex - PO 1,000 mg DAILY JAYLENE Administration ASSESSMENT/PLAN: Unfortunate 52 y/o man with h/o B cell lymphoma, with recent admission to [facility] for AMS, SAH, polymicrobial bacteremia (including MRSA ) and hematemesis. Presented to [facility] as he was found with AMS by his niece. He was found to have aplastic crisis. #Aplastic crisis likely 2/2 chemotherapy -s/p 5U pRBC, 1U pl upon admission -H/H today 6.8/19.7; Abs neuts 0.6 (May 09, 2018). 1 U PRBC given. -Goal Hgb >7, transfuse PRN. -Neutropenic precautions -Check parvovirus B19 -Dr Leonard/Jill on board -CTAP--> PNA and perirenal abscess extending to anus Granix 300 mcg SQ Daily -Quantiferon negative -Received 1 unit PRBC today #Diffuse Large B Cell Lymphoma - hold chemotherapy agents -Per ID, Merrem, flagyl,Day 7 -Blood and Urine Cultures negative -HOLD Vanco per ID- Dr Julio Cesar CAMPBELL -no standing fluids -Monitor Electrolytes -Soft Diet Dispo -Med-Surg Visit type - Emergency Visit Emergency Visit: Yes ED Registration Date: 04/29/18 Care time: The patient presented to the Emergency Department on the above date and was hospitalized for further evaluation of their emergent condition. - New Patient This patient is new to me today: No - Critical Care Critical Care patient: No - Discharge Referral Referred to [facility] Med P.C.: No
[2018-05-09] MEDS: VANCOMYCIN HCL 1,500 MG in DEXTROSE 5%-WATER - 500 ML IVPB SCH (14:41)
[2018-05-09] MEDS: TBO-FILGRASTIM 300 MCG/0.5 ML DISP.SYRINGE SQ SCH (14:45)
--- NOTE | 2018-05-09 20:55 | PN ---
Progress Note (short form) - Note Progress Note: Patient seen aqnd examined Difficult problem Aplastic bone marrow- pulmonary infiltrates, perirenal abscess draining into anal area with blood counts too low to facilitate biopsy ? Where do we go ? Continuing on antibiotic therapy.
[2018-05-09 22:34] LABS: BASO % 0.4 % (0-2.0); EOS % 4.3 % (0-4.5); HEMATOCRIT 21.1 % (35.4-49); HEMOGLOBIN 7.4 GM/dL (11.7-16.9); LYMPH % 44.5 % (8-40); MCH 28.1 pg (25.7-33.7); MEAN CELL VOLUME 80.5 fl (80-96); MEAN PLT VOLUME 8.7 fl (7.5-11.1); MONO % 9.8 % (3.8-10.2); RBC 2.62 M/mm3 (4.00-5.60); RDW 15.5 % (11.9-15.9)
[2018-05-09 22:38] LABS: PLATELET COUNT 25 K/MM3 (134-434); WHITE BLOOD COUNT 1.9 K/mm3 (4.0-10.0)
[2018-05-10] MEDS: MEROPENEM 1 GM in DEXTROSE 5%-WATER 100 ML IVPB SCH ×2 (01:07→11:16)
[2018-05-10 06:46] LABS: BASO % 0.4 % (0-2.0); EOS % 4.4 % (0-4.5); HEMOGLOBIN 7.7 GM/dL (11.7-16.9); MCHC 35.1 g/dl (32.0-35.9); MEAN CELL VOLUME 79.7 fl (80-96); MEAN PLT VOLUME 8.6 fl (7.5-11.1); NEUT % 41.2 % (42.8-82.8); RBC 2.76 M/mm3 (4.00-5.60); RDW 15.8 % (11.9-15.9)
[2018-05-10 06:55] LABS: PLATELET COUNT 23 K/MM3 (134-434); WHITE BLOOD COUNT 1.8 K/mm3 (4.0-10.0)
[2018-05-10 07:19] LABS: ANION GAP 4 MMOL/L (8-16); BLOOD UREA NITROGEN 16 mg/dL (7-18); CALCIUM 8.1 mg/dL (8.5-10.1); CHLORIDE 112 mmol/L (98-107); CO2 24 mmol/L (21-32); CREATININE 0.6 mg/dL (0.55-1.3); GLUCOSE,RANDOM 100 mg/dL (74-106); MAGNESIUM 1.6 mg/dL (1.8-2.4); PHOSPHOROUS 2.7 mg/dL (2.5-4.9); POTASSIUM 3.9 mmol/L (3.5-5.1); SODIUM 141 mmol/L (136-145)
[2018-05-10 10:02] LABS: ANISOCYTOSIS 1+; MACROCYTOSIS 0; PLATELET ESTIMATE DECREASED
--- NOTE | 2018-05-10 10:11 | PN ---
Physical Exam: SUBJECTIVE: Patient seen and examined at bedside. No fevers overnight. OBJECTIVE: Vital Signs Period Temp Pulse Resp BP Sys/Borjas Pulse Ox Last 24 Hr 97.7 F-98.2 F 88-97 18-20 91-97/62-66 98 GENERAL: No acute distress HEAD: Atraumatic/Normocephalic EYES: EOMI Sclera Clear NECK: Trachea midline, full range of motion, supple. LUNGS: Clear to auscultation b/l HEART: RRR nl s1s2 ABDOMEN: Soft NDNT EXTREMITIES: No CCE. Muscle wasting b/l lower extremities. Laboratory Results - last 24 hr 05/09/18 05/09/18 05/10/18 06:00 21:30 06:30 WBC 1.9 L* 1.8 L* RBC 2.62 L 2.76 L Hgb 7.4 L 7.7 L Hct 21.1 L 22.0 L MCV 80.5 79.7 L MCH 28.1 28.0 MCHC 35.0 35.1 RDW 15.5 15.8 Plt Count 25 L* 23 L* MPV 8.7 8.6 Absolute Neuts (auto) 0.8 L 0.7 L Total Counted 100 Neutrophils % 41.0 L 41.2 L Neutrophils % (Manual) 40.6 L D 58.0 D Band Neutrophils % 7.9 Lymphocytes % 44.5 H 43.0 H Lymphocytes % (Manual) 37.6 D 37.0 Monocytes % 9.8 11.0 H Monocytes % (Manual) 8 D 4 Eosinophils % 4.3 4.4 Eosinophils % (Manual) 4.0 1.0 Basophils % 0.4 0.4 Basophils % (Manual) 0.0 Myelocytes % (Man) 0 Promyelocytes % (Man) 0 Blast Cells % (Manual) 0 Nucleated RBC % 0 0 Metamyelocytes 0 Hypochromia 0 Platelet Estimate Decreased Polychromasia 0 Poikilocytosis 1+ Anisocytosis 1+ Microcytosis 2+ Macrocytosis 0 Ovalocytes 1+ Sodium Potassium Chloride Carbon Dioxide Anion Gap BUN Creatinine Creat Clearance w eGFR Random Glucose Calcium Phosphorus Magnesium 05/10/18 06:30 WBC RBC Hgb Hct MCV MCH MCHC RDW Plt Count MPV Absolute Neuts (auto) Total Counted Neutrophils % Neutrophils % (Manual) Band Neutrophils % Lymphocytes % Lymphocytes % (Manual) Monocytes % Monocytes % (Manual) Eosinophils % Eosinophils % (Manual) Basophils % Basophils % (Manual) Myelocytes % (Man) Promyelocytes % (Man) Blast Cells % (Manual) Nucleated RBC % Metamyelocytes Hypochromia Platelet Estimate Polychromasia Poikilocytosis Anisocytosis Microcytosis Macrocytosis Ovalocytes Sodium 141 Potassium 3.9 Chloride 112 H Carbon Dioxide 24 Anion Gap 4 L BUN 16 Creatinine 0.6 Creat Clearance w eGFR 141.48 Random Glucose 100 Calcium 8.1 L Phosphorus 2.7 Magnesium 1.6 L Active Medications Generic Name Dose Route Start Last Admin Trade Name Freq PRN Reason Stop Dose Admin Acetaminophen 650 mg 05/03/18 11:29 05/05/18 22:55 Tylenol - PO 650 mg Q6H PRN Administration FEVER Meropenem 1 gm/ Dextrose 100 mls @ 200 mls/hr 05/03/18 18:00 05/10/18 01:07 IVPB 200 mls/hr Q8H-IV JAYLENE Administration Non-Formulary Medication 100 mg 05/02/18 12:23 Posaconazole [Noxafil] PO ASDIR JAYLENE Tbo-Filgrastim 300 mcg 05/04/18 10:00 05/09/18 14:45 Granix - SQ 300 mcg DAILY JAYLENE Administration Valacyclovir HCl 1,000 mg 05/03/18 10:00 05/09/18 12:04 Valtrex - PO 1,000 mg DAILY JAYLENE Administration ASSESSMENT/PLAN: Unfortunate 52 y/o man with h/o B cell lymphoma, with recent admission to [facility] for AMS, SAH, polymicrobial bacteremia (including MRSA ) and hematemesis. Presented to [facility] as he was found with AMS by his niece. He was found to have aplastic crisis. #Aplastic crisis likely 2/2 chemotherapy -s/p 5U pRBC, 1U pl upon admission -H/H today 7.7/22.0; Abs neuts 0.6 (May 10, 2018). -Goal Hgb >7, transfuse PRN. -Neutropenic precautions -Check parvovirus B19 -Dr Leonard/Jill on board -CTAP--> PNA and perirenal abscess extending to anus Granix 300 mcg SQ Daily -Quantiferon negative -Received 1 U PRBC yesterday 05/09/18 #Diffuse Large B Cell Lymphoma - hold chemotherapy agents -Added augmentin due to the mary jo-rectal abscess -Blood and Urine Cultures negative FEN -no standing fluids -Monitor Electrolytes -Soft Diet Dispo -Med-Surg Visit type - Emergency Visit Emergency Visit: Yes ED Registration Date: 04/29/18 Care time: The patient presented to the Emergency Department on the above date and was hospitalized for further evaluation of their emergent condition. - New Patient This patient is new to me today: No - Critical Care Critical Care patient: No - Discharge Referral Referred to [facility] Med P.C.: No
--- NOTE | 2018-05-10 10:15 | PN ---
Progress Note, Physician History of Present Illness: remaining afebrile no new issues - Current Medication List Current Medications: Active Medications Acetaminophen (Tylenol -) 650 mg PO Q6H PRN PRN Reason: FEVER Last Admin: 05/05/18 22:55 Dose: 650 mg Meropenem 1 gm/ Dextrose 100 mls @ 200 mls/hr IVPB Q8H-IV JAYLENE Last Admin: 05/10/18 01:07 Dose: 200 mls/hr Non-Formulary Medication (Posaconazole [Noxafil]) 100 mg PO ASDIR [facility] Tbo-Filgrastim (Granix -) 300 mcg SQ DAILY [facility] Last Admin: 05/09/18 14:45 Dose: 300 mcg Valacyclovir HCl (Valtrex -) 1,000 mg PO DAILY [facility] Last Admin: 05/09/18 12:04 Dose: 1,000 mg - Objective Vital Signs: Vital Signs Temperature 97.7 F 05/10/18 06:27 Pulse Rate 94 H 05/10/18 06:27 Respiratory Rate 18 05/10/18 06:27 Blood Pressure 91/62 05/10/18 06:27 O2 Sat by Pulse Oximetry (%) 98 05/09/18 21:00 Constitutional: Yes: No Distress, Calm Cardiovascular: Yes: Regular Rate and Rhythm Respiratory: Yes: Regular, CTA Bilaterally Gastrointestinal: Yes: Normal Bowel Sounds, Soft Musculoskeletal: Yes: WNL Extremities: Yes: WNL Neurological: Yes: Alert, Oriented Psychiatric: Yes: Alert, Oriented Labs: CBC, BMP 05/10/18 06:30 05/10/18 06:30 INR, PTT INR 1.24 (0.83-1.09) H 05/04/18 06:30 Assessment/Plan 52 yo M w/ pmhx of 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 Problem List - Problem (1) Aplastic anemia (2) B-cell lymphoma 3 sepsis 4 fever plan will stop abx will watch without abx wbc is increasing platelets have dropped monitor platelets rest as per the team
[2018-05-10] MEDS ORDERED: PT OWN MED DRAWER 7, Y5N ONE (10:53)
[2018-05-10] MEDS: valACYclovir HCL 500 MG TABLET (FP) PO SCH (11:16)
[2018-05-10] MEDS: TBO-FILGRASTIM 300 MCG/0.5 ML DISP.SYRINGE SQ SCH (12:30)
--- NOTE | 2018-05-10 14:19 | PN ---
Teaching Attending Note Name of Resident: Rojelio Alonso ATTENDING PHYSICIAN STATEMENT I saw and evaluated the patient. I reviewed the resident's note and discussed the case with the resident. I agree with the resident's findings and plan as documented. SUBJECTIVE: No fever or chills. No pain. OBJECTIVE: NAD, awake, alert and cooperative HEENT:MMM, no facial droop CV: RRR, no MRG, no JVD Lungs: R lung base crackles, otherwise clear . Ext: no edema or erythema. Rectal: fluctuant area on L perianal area with no tenderness or discharge or skin changes Assessment/Plan: Unfortunate 52 y/o man with h/o B cell lymphoma, with recent admission to [facility] for AMS, SAH, polymicrobial bacteremia ( including MRSA ) and hematemesis. he presented yesterday as he was found with AMS by his niece. He was found to have aplastic crisis. 1- Aplastic crisis: cont to monitor labs and transfuse RBC, PLt as needed - parvovirus B19 is still pending - neutropenic precautions . 2- Sepsis; no more fever ( last on 05/05). received IV Abx for > 7 days . Cx neg to date - case d/w Dr. Harrell. will add augmentin due to the mary jo-rectal abscess - QTF neg. AFb pending - CT of chest /Abd/Pelvis reviewed 3- L mary jo-anal abscess: - Augmentin - Spoke to Dr. Chester in a consult . patient to be evaluated for drainage 4- Transaminitis : resolved Will discuss with patient and family transfer to [facility]. He has refused last week
--- NOTE | 2018-05-10 15:13 | CONSULT ---
- Consultation REQUESTING PROVIDER: Reagan FARR CONSULT REQUEST: We have been asked to surgically evaluate this patient for a possible perirectal/perianal abscess. PCP:Baldo Kirk HISTORY OF PRESENT ILLNESS: CTSP for evaluation and management of a possible perirectal/perianal abscess; patient has no c/o w/r/t/ this area but does possible allude to ? having had something done in that area before " at [facility]. PMHx: B lymphoma PSHx: none Home Medications Medication Instructions Recorded Eltrombopag Olamine [Promacta] 50 mg PO DAILY 04/29/18 Filgrastim [Neupogen] 300 mcg IJ ASDIR 04/29/18 Filgrastim-Sndz [Zarxio] 300 mcg IJ ASDIR 04/29/18 Levofloxacin [Levaquin] 500 mg PO ASDIR 04/29/18 Posaconazole [Noxafil] 100 mg PO ASDIR 04/29/18 Valacyclovir HCl [Valtrex -] 1,000 mg PO ASDIR 04/29/18 Allergies Allergy/AdvReac Type Severity Reaction Status Date / Time No Known Allergies Allergy Verified 04/29/18 15:04 PHYSICAL EXAM: GENERAL: Awake, alert, and fully oriented, in no acute distress. ABDOMEN: Soft, nontender, not distended, normoactive bowel sounds, no guarding, no rebound, no masses. No organomegaly. No hernias MUSCULOSKELETAL: Normal ROM at all joints. No bony deformities or tenderness. No CVA tenderness. UPPER EXTREMITIES: 2+ pulses, warm, well-perfused. No cyanosis. Cap refill <2 seconds. No peripheral edema. LOWER EXTREMITIES: 2+ pulses, warm, well-perfused. No calf tenderness. No peripheral edema. NEUROLOGICAL: Normal speech, gait not observed. PSYCH: Cooperative. Good eye contact. Appropriate mood and affect. SKIN: Warm, dry, normal turgor, no rashes or lesions noted. RECTAL: GST; no mass; no fluctuance; no ttp; no erythema; no scars; no active drainage; ? sebaceous cyst of the perianal skin; /w negative. Vital Signs Temperature 97.8 F 05/10/18 14:40 Pulse Rate 89 05/10/18 14:40 Respiratory Rate 18 05/10/18 14:40 Blood Pressure 91/62 05/10/18 14:40 O2 Sat by Pulse Oximetry (%) 98 05/09/18 21:00 Lab Results WBC 1.8 K/mm3 (4.0-10.0) L* 05/10/18 06:30 RBC 2.76 M/mm3 (4.00-5.60) L 05/10/18 06:30 Hgb 7.7 GM/dL (11.7-16.9) L 05/10/18 06:30 Hct 22.0 % (35.4-49) L 05/10/18 06:30 MCV 79.7 fl (80-96) L 05/10/18 06:30 MCHC 35.1 g/dl (32.0-35.9) 05/10/18 06:30 RDW 15.8 % (11.9-15.9) 05/10/18 06:30 Plt Count 23 K/MM3 (134-434) L* 05/10/18 06:30 Sodium 141 mmol/L (136-145) 05/10/18 06:30 Potassium 3.9 mmol/L (3.5-5.1) 05/10/18 06:30 Chloride 112 mmol/L (98-107) H 05/10/18 06:30 Carbon Dioxide 24 mmol/L (21-32) 05/10/18 06:30 Anion Gap 4 MMOL/L (8-16) L 05/10/18 06:30 BUN 16 mg/dL (7-18) 05/10/18 06:30 Creatinine 0.6 mg/dL (0.55-1.3) 05/10/18 06:30 Random Glucose 100 mg/dL (74-106) 05/10/18 06:30 Calcium 8.1 mg/dL (8.5-10.1) L 05/10/18 06:30 Blood Type A POSITIVE 05/08/18 12:06 Antibody Screen Negative 05/08/18 12:06 INR 1.24 (0.83-1.09) H 05/04/18 06:30 IMP:no evidence of an ano-rectal sepsis source PLAN: No indication for surgical intervention at this time. Greg Chester MD FACS
[2018-05-10] MEDS: AMOX TR/POT CLAV 875MG/125MG TABLETS (FP) PO SCH (18:21)
[2018-05-11 06:13] LABS: BASO % 0.4 % (0-2.0); EOS % 4.4 % (0-4.5); HEMATOCRIT 20.8 % (35.4-49); HEMOGLOBIN 7.3 GM/dL (11.7-16.9); LYMPH % 45.1 % (8-40); MEAN CELL VOLUME 79.9 fl (80-96); MEAN PLT VOLUME 8.6 fl (7.5-11.1); MONO % 10.8 % (3.8-10.2); NEUT % 39.3 % (42.8-82.8); RBC 2.61 M/mm3 (4.00-5.60); RDW 15.4 % (11.9-15.9)
[2018-05-11 06:30] LABS: WHITE BLOOD COUNT 1.7 K/mm3 (4.0-10.0)
[2018-05-11 06:31] LABS: PLATELET COUNT 15 K/MM3 (134-434)
[2018-05-11 06:40] LABS: ANION GAP 9 MMOL/L (8-16); BLOOD UREA NITROGEN 21 mg/dL (7-18); CHLORIDE 110 mmol/L (98-107); CO2 23 mmol/L (21-32); CREATININE 0.6 mg/dL (0.55-1.3); GLUCOSE,RANDOM 101 mg/dL (74-106); MAGNESIUM 1.2 mg/dL (1.8-2.4); PHOSPHOROUS 3.5 mg/dL (2.5-4.9); POTASSIUM 3.8 mmol/L (3.5-5.1); SODIUM 142 mmol/L (136-145)
[2018-05-11] MEDS ORDERED: LACTATED RINGERS SOLUTION 1000 ML INFUS.BAG IV ONE ×2 (07:51)
[2018-05-11] MEDS ORDERED: MAGNESIUM OXIDE 400 MG TABLET (FP) PO ONE (08:30)
[2018-05-11] MEDS: AMOX TR/POT CLAV 875MG/125MG TABLETS (FP) PO SCH ×2 (08:56→19:35)
--- NOTE | 2018-05-11 10:41 | PN ---
Progress Note (short form) - Note Progress Note: Appears overall better from the last time I evaluated him in the ICU. No CP or SOB. Minimal dry cough. No hemoptysis. Remains afebrile. CT: 05/03/18: bibasilar infiltrates Right > Left: non-fluid filled 0.7 cm NORA well delineated lesion: doubt true cavity Intake & Output 05/08/18 05/09/18 05/10/18 05/11/18 23:59 23:59 23:59 23:59 Intake Total 3240 2534 460 Output Total 1300 1800 1400 Balance 1940 734 -940 Last Vital Signs Temp Pulse Resp BP Pulse Ox 98.0 F 84 18 84/57 L 98 05/11/18 06:00 05/11/18 06:00 05/11/18 06:00 05/11/18 06:00 05/10/18 21:00 Active Medications Acetaminophen (Tylenol -) 650 mg PO Q6H PRN PRN Reason: FEVER Last Admin: 05/05/18 22:55 Dose: 650 mg Amoxicillin/Clavulanate Potassium (Augmentin - 875mg Tablet) 1 tab PO BID@0800, 1730 [facility] Last Admin: 05/11/18 08:56 Dose: 1 tab Tbo-Filgrastim (Granix -) 300 mcg SQ DAILY [facility] Last Admin: 05/10/18 12:30 Dose: 300 mcg Valacyclovir HCl (Valtrex -) 1,000 mg PO DAILY [facility] Last Admin: 05/10/18 11:16 Dose: 1,000 mg Constitutional: Yes: NAD Eyes: Yes: WNL, Conjunctiva Clear, EOM Intact HENT: Yes: WNL, Atraumatic, Normocephalic Neck: Yes: WNL, Supple, Trachea Midline Cardiovascular: Yes: WNL, Regular Rate and Rhythm, Tachycardia, S1, S2 Respiratory: Yes: scattered basilar rhonchi Gastrointestinal: Yes: WNL, Normal Bowel Sounds, Soft Renal/: Yes: WNL Breast(s): Yes: WNL Musculoskeletal: Yes: WNL Extremities: Yes: WNL Edema: No Peripheral Pulses WNL: Yes Integumentary: Yes: Jaundice Neurological: Yes: Confusion ...Motor Strength: WNL Psychiatric: Yes: confusion Labs: Laboratory Results - last 24 hr 05/10/18 05/11/1819 06:30 05:40 05:40 WBC 1.7 L* RBC 2.61 L Hgb 7.3 L Hct 20.8 L MCV 79.9 L MCH 28.0 MCHC 35.0 RDW 15.4 Plt Count 15 L* D MPV 8.6 Absolute Neuts (auto) 0.7 L Neutrophils % 39.3 L Neutrophils % (Manual) 29.6 L D Band Neutrophils % 6.1 Lymphocytes % 45.1 H Lymphocytes % (Manual) 51.0 H D Monocytes % 10.8 H Monocytes % (Manual) 6 Eosinophils % 4.4 Eosinophils % (Manual) 5.1 H D Basophils % 0.4 Basophils % (Manual) 0.0 Myelocytes % (Man) 1 D Promyelocytes % (Man) 0 Blast Cells % (Manual) 0 Nucleated RBC % 0 Metamyelocytes 1 D Hypochromia 0 Platelet Estimate Decreased Polychromasia 0 Poikilocytosis 0 Anisocytosis 1+ Microcytosis 1+ Macrocytosis 0 Sodium 142 Potassium 3.8 Chloride 110 H Carbon Dioxide 23 Anion Gap 9 BUN 21 H Creatinine 0.6 Creat Clearance w eGFR 141.48 Random Glucose 101 Calcium 8.0 L Phosphorus 3.5 Magnesium 1.2 L Problem List - Problems (1) Aplastic anemia Code(s): D61.9 - APLASTIC ANEMIA, UNSPECIFIED (2) B-cell lymphoma Code(s): C85.10 - UNSPECIFIED B-CELL LYMPHOMA, UNSPECIFIED SITE Qualifiers: B-cell lymphoma type: diffuse large B-cell Lymphoma site: unspecified region Qualified Code(s): C83.30 - Diffuse large B-cell lymphoma, unspecified site (3) Neutropenic sepsis Code(s): A41.9 - SEPSIS, UNSPECIFIED ORGANISM; D70.9 - NEUTROPENIA, UNSPECIFIED (4) Altered mental status Code(s): R41.82 - ALTERED MENTAL STATUS, UNSPECIFIED (5) Dehydration Code(s): E86.0 - DEHYDRATION (6) Hyperbilirubinemia Code(s): E80.6 - OTHER DISORDERS OF BILIRUBIN METABOLISM Assessment/Plan DLBCL on Chemo c/b AA (last chemo in February R-CHOP + itMTX; d/c'ed 2/2 thrombocytopenia) Montemayor-cytopneia AMS m/l multifactorial: neutropenic infection, Chemo, bone marrow suppression, AA crisis, paraneoplastic SAH Polymicrobial bacteremia Aplastic crisis Left mary jo-anal abscess No further workup of the NORA lesion is warranted at this time: Can follow imaging as an outpatient ABX per ID O2 as needed Noted efforts being made to transfer the patient to [facility] Dr Viera
[2018-05-11] MEDS ORDERED: PT OWN MED DRAWER 7, Y5N ONE (10:48)
[2018-05-11] MEDS: valACYclovir HCL 500 MG TABLET (FP) PO SCH (11:07)
[2018-05-11 11:40] LABS: ANISOCYTOSIS 1+; MACROCYTOSIS 0; OVALOCYTE 1+; PLATELET ESTIMATE DECREASED
[2018-05-11] MEDS: TBO-FILGRASTIM 300 MCG/0.5 ML DISP.SYRINGE SQ SCH (12:31)
--- NOTE | 2018-05-11 12:54 | PN ---
Physical Exam: SUBJECTIVE: Patient seen and examined at bedside. Nieces at bedside. OBJECTIVE: Vital Signs Period Temp Pulse Resp BP Sys/Borjas Pulse Ox Last 24 Hr 97.7 F-98.5 F 84-89 18-20 84-94/53-69 98 GENERAL: NAD Resting in bed comfortably HEAD: Temporal wasting. Atraumatic EYES: EOMI Sclera Clear NECK: Trachea midline, full range of motion, supple. LUNGS: Crackles at right lung base Good inspiratory effort. HEART: RRR nl s1s2 ABDOMEN: Soft NDNT EXTREMITIES: No CCE. Muscle wasting b/l lower extremities. Laboratory Results - last 24 hr 05/11/18 05/11/18 05:40 05:40 WBC 1.7 L* RBC 2.61 L Hgb 7.3 L Hct 20.8 L MCV 79.9 L MCH 28.0 MCHC 35.0 RDW 15.4 Plt Count 15 L* D MPV 8.6 Absolute Neuts (auto) 0.7 L Neutrophils % 39.3 L Neutrophils % (Manual) 26.2 L Band Neutrophils % 2.9 Lymphocytes % 45.1 H Lymphocytes % (Manual) 51.5 H Monocytes % 10.8 H Monocytes % (Manual) 5 Eosinophils % 4.4 Eosinophils % (Manual) 7.8 H Basophils % 0.4 Basophils % (Manual) 0.0 Myelocytes % (Man) 0 D Promyelocytes % (Man) 0 Blast Cells % (Manual) 0 Nucleated RBC % 0 Metamyelocytes 0 D Hypochromia 0 Platelet Estimate Decreased Polychromasia 0 Poikilocytosis 1+ Anisocytosis 1+ Microcytosis 1+ Macrocytosis 0 Ovalocytes 1+ Sodium 142 Potassium 3.8 Chloride 110 H Carbon Dioxide 23 Anion Gap 9 BUN 21 H Creatinine 0.6 Creat Clearance w eGFR 141.48 Random Glucose 101 Calcium 8.0 L Phosphorus 3.5 Magnesium 1.2 L Active Medications Generic Name Dose Route Start Last Admin Trade Name Freq PRN Reason Stop Dose Admin Acetaminophen 650 mg 05/03/18 11:29 05/05/18 22:55 Tylenol - PO 650 mg Q6H PRN Administration FEVER Amoxicillin/Clavulanate Potassium 1 tab 05/10/18 17:30 05/11/18 08:56 Augmentin - 875mg Tablet PO 1 tab BID@0800,1730 JAYLENE Administration Tbo-Filgrastim 300 mcg 05/04/18 10:00 05/11/18 12:31 Granix - SQ 300 mcg DAILY JAYLENE Administration Valacyclovir HCl 1,000 mg 05/03/18 10:00 05/11/18 11:07 Valtrex - PO 1,000 mg DAILY JAYLENE Administration ASSESSMENT/PLAN: Unfortunate 52 y/o man with h/o B cell lymphoma, with recent admission to [facility] for AMS, SAH, polymicrobial bacteremia (including MRSA ) and hematemesis. Presented to [facility] as he was found with AMS by his niece. He was found to have aplastic crisis. #Aplastic crisis likely 2/2 chemotherapy -s/p 6U pRBC, 1U pl upon admission -H/H today 7.3/20.8; Abs neuts 0.7 -Goal Hgb >7, transfuse PRN. -Neutropenic precautions - Parvovirus B19 pending -Dr Leonard/Jill on board -CTAP--> PNA and perirenal abscess extending to anus Granix 300 mcg SQ Daily -Quantiferon negative # NORA Cavitary lesion Pulm on board evaluated today---. No further workup of the NORA lesion is warranted at this time: Can follow imaging as an outpatient # Prerenal/Perirectal abscess -Evaluated by Surgery Dr Isabel Chester----> No indication for surgical intervention at this time. #Diffuse Large B Cell Lymphoma - hold chemotherapy agents -Added Augmentin due to the mary jo-rectal abscess -Blood and Urine Cultures negative #FEN -no standing fluids -Monitor Electrolytes -Soft Diet #Dispo -Contacted C this afternoon. Pt not accepted for transfer. Will schedule pt for outpatient visit with Dr Clyde Mcgraw/Onc at [facility] this Tuesday May 15, 2018 . Visit type - Emergency Visit Emergency Visit: Yes ED Registration Date: 04/29/18 Care time: The patient presented to the Emergency Department on the above date and was hospitalized for further evaluation of their emergent condition. - New Patient This patient is new to me today: No - Critical Care Critical Care patient: No - Discharge Referral Referred to [facility] Med P.C.: No
--- NOTE | 2018-05-11 15:22 | PN ---
Progress Note, Physician - Current Medication List Current Medications: Active Medications Acetaminophen (Tylenol -) 650 mg PO Q6H PRN PRN Reason: FEVER Last Admin: 05/05/18 22:55 Dose: 650 mg Amoxicillin/Clavulanate Potassium (Augmentin - 875mg Tablet) 1 tab PO BID@0800, 1730 [facility] Last Admin: 05/11/18 08:56 Dose: 1 tab Tbo-Filgrastim (Granix -) 300 mcg SQ DAILY [facility] Last Admin: 05/11/18 12:31 Dose: 300 mcg Valacyclovir HCl (Valtrex -) 1,000 mg PO DAILY [facility] Last Admin: 05/11/18 11:07 Dose: 1,000 mg - Objective Vital Signs: Vital Signs Temperature 98.2 F 05/11/18 15:00 Pulse Rate 100 H 05/11/18 15:00 Respiratory Rate 18 05/11/18 15:00 Blood Pressure 92/60 05/11/18 15:00 O2 Sat by Pulse Oximetry (%) 99 05/11/18 09:00 Labs: CBC, BMP 05/11/18 05:40 05/11/18 05:40 INR, PTT INR 1.24 (0.83-1.09) H 05/04/18 06:30
--- NOTE | 2018-05-11 16:42 | PN ---
Teaching Attending Note Name of Resident: Rojelio Alonso ATTENDING PHYSICIAN STATEMENT I saw and evaluated the patient. I reviewed the resident's note and discussed the case with the resident. I agree with the resident's findings and plan as documented. SUBJECTIVE: Feels okay - denies fever/chills/cough/sputum/hemoptysis/abdominal pain/diarrhea/dysuria/hematuria/hematochezia OBJECTIVE: Afebrile, Hemodynamically Stable. Last Vital Signs Temp Pulse Resp BP Pulse Ox 98.2 F 100 H 18 92/60 99 05/11/18 15:00 05/11/18 15:00 05/11/18 15:00 05/11/18 15:00 05/11/18 09:00 HEENT - Atrauamatic, Normocephalic Heart - S1, S2, RRR Lungs - R basal crackles. Abdomen - Soft, non-tender.Bowel Sounds normal. Extremities- no edema, no calf tenderness Laboratory Results - last 24 hr 05/11/18 05/11/18 05/11/18 05:40 05:40 12:45 WBC 1.7 L* RBC 2.61 L Hgb 7.3 L Hct 20.8 L MCV 79.9 L MCH 28.0 MCHC 35.0 RDW 15.4 Plt Count 15 L* D MPV 8.6 Absolute Neuts (auto) 0.7 L Neutrophils % 39.3 L Neutrophils % (Manual) 26.2 L Band Neutrophils % 2.9 Lymphocytes % 45.1 H Lymphocytes % (Manual) 51.5 H Monocytes % 10.8 H Monocytes % (Manual) 5 Eosinophils % 4.4 Eosinophils % (Manual) 7.8 H Basophils % 0.4 Basophils % (Manual) 0.0 Myelocytes % (Man) 0 D Promyelocytes % (Man) 0 Blast Cells % (Manual) 0 Nucleated RBC % 0 Metamyelocytes 0 D Hypochromia 0 Platelet Estimate Decreased Polychromasia 0 Poikilocytosis 1+ Anisocytosis 1+ Microcytosis 1+ Macrocytosis 0 Ovalocytes 1+ Sodium 142 Potassium 3.8 Chloride 110 H Carbon Dioxide 23 Anion Gap 9 BUN 21 H Creatinine 0.6 Creat Clearance w eGFR 141.48 Random Glucose 101 Calcium 8.0 L Phosphorus 3.5 Magnesium 1.2 L Blood Type A POSITIVE Antibody Screen Negative Crossmatch See Detail Current Medications Generic Name Dose Route Start Last Admin Trade Name Freq PRN Reason Stop Dose Admin Acetaminophen 650 mg 05/03/18 11:29 05/05/18 22:55 Tylenol - PO 650 mg Q6H PRN Administration FEVER Amoxicillin/Clavulanate Potassium 1 tab 05/10/18 17:30 05/11/18 08:56 Augmentin - 875mg Tablet PO 1 tab BID@0800,1730 JAYLENE Administration Tbo-Filgrastim 300 mcg 05/04/18 10:00 05/11/18 12:31 Granix - SQ 300 mcg DAILY JAYLENE Administration Valacyclovir HCl 1,000 mg 05/03/18 10:00 05/11/18 11:07 Valtrex - PO 1,000 mg DAILY JAYLENE Administration ASSESSMENT AND PLAN: 52 year old male with history of B Cell Lymphoma (s/p R-CHOP, IT-MTX, RICE), with recent admission to [facility] for AMS, polymicrobial bacteremia (including MRSA ) and hematemesis, now brought in by niece with confusion. 1. Pancytopenia/Aplasia sec to Lymphoma H/H 7.3/20.8, Plts 15, WBC 1.7 Granix daily Patient declines transfer to [facility] where he normally receives all of his cancer care. Attempt was made to transfer to [facility] who did not accept the patient for transfer but rather recommended discharge with outpatient follow up - appt with Dr. Tang given for Tuesday noon. Patient still receiving supportive transfusions of PRBCs (7 units) and Platelets (3 units) - confirmed with Blood Bank No further evidence of fever or sepsis. Neutropenic precautions. Further management as per Hem/Onc recommendations 2. Neutrpenic Sepsis sec to Pneumonia - Resolving CT C/A/P - bibasilar infiltrates/RUL Infiltrates/0.7cm NORA cavitary lesion - Quantiferon neg, Sputum AFB neg x 2. Received IV Abx - on Augmentin currently as per ID for possible mary jo-rectal abscess as well as Valtrex. Eval by Surgery - likely mary jo-rectal cyst, not abscess, no intervention required. BCx neg Currently Afebrile, Borderline BP, will monitor. 3. Acute Metabolic Encephalopathy - sec to sepsis - resolved. CT Brain negative Dispo - Palliative Care consulted for goals of care.
--- NOTE | 2018-05-11 20:34 | PN ---
Progress Note (short form) - Note Progress Note: Patient seen and examined denies any specific complaints AFVSS Cor: RSR, No murmurs, No gallops Lungs: Clear to P&A Abd: Soft, Normal bowel sounds, No organomegaly Ext:No significant edema Labs/eds reviewed a/p Hx of transformed lymphoma s/p chemotherapy with aplastic picture now febrile. ct scans show cavitary lesion dano/rt. ul infiltrates/perirectal abscess on broadspectrum abx ? antifungal will consult pulmonary team r/o afb transfusion support overall poor prognosis with aplastic picture/poor performance status/ uncontrolled infection, limiting treatment options. AFB x3 negative Patient to follow up at [facility]--primary team coordinating follow up Will transfuse prior to discharge will discuss with primary team
[2018-05-12 06:20] VITALS: PULSE 84; TEMP 98.6
[2018-05-12 07:10] LABS: HEMATOCRIT 24.4 % (35.4-49); HEMOGLOBIN 8.5 GM/dL (11.7-16.9); MCHC 34.6 g/dl (32.0-35.9); MEAN CELL VOLUME 80.8 fl (80-96); MEAN PLT VOLUME 7.2 fl (7.5-11.1); RBC 3.02 M/mm3 (4.00-5.60); RDW 15.8 % (11.9-15.9)
[2018-05-12 07:19] LABS: WHITE BLOOD COUNT 1.8 K/mm3 (4.0-10.0)
[2018-05-12 07:20] LABS: PLATELET COUNT 25 K/MM3 (134-434)
[2018-05-12 07:40] LABS: ANION GAP 6 MMOL/L (8-16); BLOOD UREA NITROGEN 21 mg/dL (7-18); CALCIUM 8.6 mg/dL (8.5-10.1); CHLORIDE 110 mmol/L (98-107); CO2 25 mmol/L (21-32); CREATININE 0.5 mg/dL (0.55-1.3); GLUCOSE,RANDOM 103 mg/dL (74-106); MAGNESIUM 1.5 mg/dL (1.8-2.4); PHOSPHOROUS 3.6 mg/dL (2.5-4.9); POTASSIUM 4.2 mmol/L (3.5-5.1); SODIUM 141 mmol/L (136-145)
[2018-05-12] MEDS: AMOX TR/POT CLAV 875MG/125MG TABLETS (FP) PO SCH (08:14)
[2018-05-12 08:45] VITALS: BP 94/65
--- NOTE | 2018-05-12 09:59 | PN ---
Physical Exam: SUBJECTIVE: Patient seen and examined at bedside. No fever overnight. Denies chest pain or shortness of breath. OBJECTIVE: Vital Signs Period Temp Pulse Resp BP Sys/Borjas Pulse Ox Last 24 Hr 98.0 F-98.6 F 84-100 18-18 92-101/60-72 99 GENERAL: No acute distress, resting in bed comfortably HEAD: Temporal wasting. Atraumatic EYES: EOMI Sclera Clear NECK: Trachea midline, full range of motion, supple. LUNGS: Right lung base crackles. Good inspiratory effort. HEART: RRR nl s1s2 ABDOMEN: Soft NDNT EXTREMITIES: No CCE. Muscle wasting b/l lower extremities. Laboratory Results - last 24 hr 05/08/18 05/11/18 05/11/18 12:06 05:40 12:45 WBC RBC Hgb Hct MCV MCH MCHC RDW Plt Count MPV Neutrophils % (Manual) 26.2 L Band Neutrophils % 2.9 Lymphocytes % (Manual) 51.5 H Monocytes % (Manual) 5 Eosinophils % (Manual) 7.8 H Basophils % (Manual) 0.0 Myelocytes % (Man) 0 D Promyelocytes % (Man) 0 Blast Cells % (Manual) 0 Metamyelocytes 0 D Hypochromia 0 Platelet Estimate Decreased Polychromasia 0 Poikilocytosis 1+ Anisocytosis 1+ Microcytosis 1+ Macrocytosis 0 Ovalocytes 1+ Sodium Potassium Chloride Carbon Dioxide Anion Gap BUN Creatinine Creat Clearance w eGFR Random Glucose Calcium Phosphorus Magnesium Blood Type A POSITIVE A POSITIVE Antibody Screen Negative Negative Crossmatch See Detail See Detail 05/12/18 05/12/18 06:00 06:00 WBC 1.8 L* RBC 3.02 L Hgb 8.5 L Hct 24.4 L D MCV 80.8 MCH 28.0 MCHC 34.6 RDW 15.8 Plt Count 25 L* D MPV 7.2 L D Neutrophils % (Manual) Band Neutrophils % Lymphocytes % (Manual) Monocytes % (Manual) Eosinophils % (Manual) Basophils % (Manual) Myelocytes % (Man) Promyelocytes % (Man) Blast Cells % (Manual) Metamyelocytes Hypochromia Platelet Estimate Polychromasia Poikilocytosis Anisocytosis Microcytosis Macrocytosis Ovalocytes Sodium 141 Potassium 4.2 Chloride 110 H Carbon Dioxide 25 Anion Gap 6 L BUN 21 H Creatinine 0.5 L Creat Clearance w eGFR 174.62 Random Glucose 103 Calcium 8.6 Phosphorus 3.6 Magnesium 1.5 L Blood Type Antibody Screen Crossmatch Active Medications Generic Name Dose Route Start Last Admin Trade Name Aurelioq PRN Reason Stop Dose Admin Acetaminophen 650 mg 05/03/18 11:29 05/05/18 22:55 Tylenol - PO 650 mg Q6H PRN Administration FEVER Amoxicillin/Clavulanate Potassium 1 tab 05/10/18 17:30 05/12/18 08:14 Augmentin - 875mg Tablet PO 1 tab BID@0800,1730 JAYLENE Administration Tbo-Filgrastim 300 mcg 05/04/18 10:00 05/11/18 12:31 Granix - SQ 300 mcg DAILY JAYLENE Administration Valacyclovir HCl 1,000 mg 05/03/18 10:00 05/11/18 11:07 Valtrex - PO 1,000 mg DAILY JAYLENE Administration ASSESSMENT/PLAN:
[2018-05-12] MEDS: valACYclovir HCL 500 MG TABLET (FP) PO SCH (10:59)
[2018-05-12] MEDS: TBO-FILGRASTIM 300 MCG/0.5 ML DISP.SYRINGE SQ SCH (10:59)
--- NOTE | 2018-05-12 13:55 | PN ---
Progress Note, Physician History of Present Illness: stable no new issues afebrile - Current Medication List Current Medications: Active Medications Acetaminophen (Tylenol -) 650 mg PO Q6H PRN PRN Reason: FEVER Last Admin: 05/05/18 22:55 Dose: 650 mg Amoxicillin/Clavulanate Potassium (Augmentin - 875mg Tablet) 1 tab PO BID@0800, 1730 [facility] Last Admin: 05/12/18 08:14 Dose: 1 tab Tbo-Filgrastim (Granix -) 300 mcg SQ DAILY [facility] Last Admin: 05/12/18 10:59 Dose: 300 mcg Valacyclovir HCl (Valtrex -) 1,000 mg PO DAILY [facility] Last Admin: 05/12/18 10:59 Dose: 1,000 mg - Objective Vital Signs: Vital Signs Temperature 98.6 F 05/12/18 06:00 Pulse Rate 84 05/12/18 08:45 Respiratory Rate 18 05/12/18 08:45 Blood Pressure 94/65 05/12/18 08:45 O2 Sat by Pulse Oximetry (%) 99 05/11/18 21:00 Constitutional: Yes: Calm Cardiovascular: Yes: Regular Rate and Rhythm Respiratory: Yes: Regular, CTA Bilaterally Gastrointestinal: Yes: Normal Bowel Sounds, Soft Genitourinary: Yes: WNL Musculoskeletal: Yes: WNL Neurological: Yes: Alert, Oriented Psychiatric: Yes: Alert, Oriented Labs: CBC, BMP 05/12/18 06:00 05/12/18 06:00 INR, PTT INR 1.24 (0.83-1.09) H 05/04/18 06:30 Assessment/Plan 52 yo M w/ pmhx of 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 Problem List - Problem (1) Aplastic anemia (2) B-cell lymphoma 3 sepsis 4 fever plan stable continue supportive care rest as per the team patient stable
--- NOTE | 2018-05-12 15:42 | PN ---
Progress Note (short form) - Note Progress Note: Patient seen and examined Discussed with house-staff Pancytopenia stable Afebrile No significant symptoms from mary jo-recta/perianal area On oral augmentin For appointment at [facility] on 05/15.
--- NOTE | 2018-05-12 16:20 | PN ---
Teaching Attending Note Name of Resident: Rojelio Alonso ATTENDING PHYSICIAN STATEMENT I saw and evaluated the patient. I reviewed the resident's note and discussed the case with the resident. I agree with the resident's findings and plan as documented. SUBJECTIVE: No fever or chills. no GARRETT . feel swell and wants to go home. walked with PT and cont to walk on his own . OBJECTIVE: NAD HEENT:MMM, no facial droop CV: RRR, no MRG, no JVD Lungs: CTAB Ext: no edema or erythema. gait is steady through out the hallway . Assessment/Plan: Unfortunate 52 y/o man with h/o B cell lymphoma, with recent admission to [facility] for AMS, SAH, polymicrobial bacteremia ( including MRSA ) and hematemesis. he presented as he was found with AMS by his niece. He was found to have aplastic crisis. 1- Aplastic crisis: stable count - parvovirus B19 is still pending - neutropenic precautions . mask when he gets visitors or goes out - at dc cont filgrastim and Promacta until he sees hem/onc in [facility]. apt made for him on Tuesday 2- sepsis from PNA and mary jo-anal abscess: resolved. cont augmentin x 5 more days. d/w ID by team AFB neg x 2 . third pening. cx pending dispo : Dc home. could not arrange for VNS due to insurance issues. steady gait. f/u with [facility], and sx.
--- NOTE | 2018-05-12 17:30 | DS ---
Physical Exam: SUBJECTIVE: Patient seen and examined at bedside. No fevers overnight. Denies chest pain, shortness of breath, or diarrhea. OBJECTIVE: Vital Signs Period Temp Pulse Resp BP Sys/Borjas Pulse Ox Last 24 Hr 98.0 F-98.6 F 84-92 18-18 94-101/65-72 98-99 PHYSICAL EXAM GENERAL: No acute distress noted. Resting in bed comfortably. HEAD: Temporal wasting. Atraumatic EYES: EOMI Sclera Clear NECK: Trachea midline, full range of motion, supple. LUNGS: Crackles at right lung base Good inspiratory effort. HEART: RRR nl s1s2 ABDOMEN: Soft NDNT EXTREMITIES: No CCE. Muscle wasting b/l lower extremities LABS Laboratory Results - last 24 hr 05/08/18 05/12/18 05/12/18 12:06 06:00 06:00 WBC 1.8 L* RBC 3.02 L Hgb 8.5 L Hct 24.4 L D MCV 80.8 MCH 28.0 MCHC 34.6 RDW 15.8 Plt Count 25 L* D MPV 7.2 L D Sodium 141 Potassium 4.2 Chloride 110 H Carbon Dioxide 25 Anion Gap 6 L BUN 21 H Creatinine 0.5 L Creat Clearance w eGFR 174.62 Random Glucose 103 Calcium 8.6 Phosphorus 3.6 Magnesium 1.5 L Blood Type A POSITIVE Antibody Screen Negative Crossmatch See Detail HOSPITAL COURSE: Date of Admission:04/29/18 Pt is a 52 y/o gentleman with a significant pmh of diffuse Large B cell lymphoma, with recent admission to [facility] for AMS, SAH, polymicrobial bacteremia (including MRSA) and hematemesis. Pt Presented to [facility] as he was found with AMS by his niece. Routine lab work in ED revealed aplastic anemia. Pt received 1 unit of platelets and PRBCs in ED. CT head was negative for acute bleed. Lactic acid was 9.4. Pt was admitted to the ICU. Heme and ID were consulted. Vanc and zosyn were started. Pt also placed on Valtrex. Neutropenic precautions were implemented. During stay, pt was noted to have neutropenic fevers spiking between 05/03/18-05/05/2018. Blood cultures were negative. ABx were eventually switched to Vanc and Merrem. CTAP was performed to assess for any possible causes of infection in pt. CTAP revealed PNA and perirenal abscess extending to anus. A 0.7 cm Left upper lobe cavitary lesion was also appreciated on imaging. Due to suspicion of possible TB, quantiferon was ordered. Quantiferon result was negative. Sputum was sent for AFB which was negative as well. Pt received a total of 7 PRBCs transfusions and 3 platelet transfusions during his hospital course. Pt was offered to be transferred to [facility] as that was the location of his primary oncology team. Pt was adamant about not returning to [facility] due to personal feelings. Subsequently, [facility] was contacted for possible transfer as our medical team was in need of a tertiary care center with a lymphoma team which may have been able to provide more options for the patient. [facility] did not accept pt for transfer. An appointment was then made for the patient with Dr Tang, Vacuum Bottle Assembler of Hematology at [facility] at his outpatient clinic for May 15, 2018. Pt was DC'ed on Augmentin for possible mary jo-rectal abscess. Date of Discharge: 05/12/18 Minutes to complete discharge: 35 Discharge Summary Reason For Visit: B-CELL LYMPHOMA, APLASTIC ANEMIA Condition: Improved - Instructions Diet, Activity, Other Instructions: You presented to the hospital due to altered mental status. You were also found to have very low blood counts and received blood transfusions. Please take the following antibiotics for 5 more days: Augmentin TWICE per day for 5 more days starting tomorrow, May 13, 2018. Please follow up with the cancer doctor, Dr Jorge Tang. An appointment has been made for you for this Tuesday May 15, 2018 at 12 PM at the following location : [address] [place] [address] [id number] [facility]. Your records from [facility] have been sent to Dr Tang's office. Please return to the hospital immediately if you begin to experience fevers, chills, diarrhea, extreme tiredness, chest pain, shortness of breath, or any other abnormal symptom. Please wear a mask when you are outside of your house or when visitors are over as you are more likely to get an infection. Referrals: Kyle Andrews MD [Staff Physician] - Greg Chester MD [Staff Physician] - 1 Week Gary Leonard MD [Staff Physician] - Disposition: HOME - Home Medications Comprehensive Discharge Medication List: Ambulatory Orders Lois Olamine [Promacta] 50 mg PO DAILY 04/29/18 Amox-Tr/K Cl [Augmentin 875-125mg Tablet -] 1 tab PO BID@0800,1730 #10 tablet Filgrastim [Neupogen] 300 mcg SQ DAILY 3 Days vial 05/12/18 Posaconazole [Noxafil] 100 mg PO DAILY #7 tab 05/12/18 Valacyclovir HCl [Valtrex -] 1,000 mg PO DAILY #7 tab 05/12/18 This patient is new to me today: No Emergency Visit: Yes ED Registration Date: 04/29/18 Care time: The patient presented to the Emergency Department on the above date and was hospitalized for further evaluation of their emergent condition. Critical Care patient: No - Discharge Referral Referred to [facility] Med P.C.: No
== END 2018-05-12 16:57 | disposition home or self-care (01) | DRG 691 ==
LOC: JER 14:37 → JICU 18:27 → J7W 05-02 12:28 → J8W 05-06 18:37
PROVIDERS: ADMIT Internal Medicine; ATTEND Internal Medicine
PROC: 30233N1 Transfusion of Nonautologous Red Blood Cells into Peripheral Vein, Percutaneous Approach (ICD-10-PCS; principal; 2018-04-29)
PROC: 30233R1 Transfusion of Nonautologous Platelets into Peripheral Vein, Percutaneous Approach (ICD-10-PCS; 2018-04-29)
DX: C83.30 Diffuse large B-cell lymphoma, unspecified site (principal); A41.02 Sepsis due to Methicillin resistant Staphylococcus aureus; D61.1 Drug-induced aplastic anemia; E87.2 Acidosis; J18.9 Pneumonia, unspecified organism; D61.818 Other pancytopenia; I95.9 Hypotension, unspecified; K61.0 Anal abscess; R17 Unspecified jaundice; E86.0 Dehydration; T45.1X5A Adverse effect of antineoplastic and immunosuppressive drugs, initial encounter; Y92.89 Other specified places as the place of occurrence of the external cause; D47.3 Essential (hemorrhagic) thrombocythemia; R29.6 Repeated falls; E87.6 Hypokalemia; R74.0 Nonspecific elevation of levels of transaminase and lactic acid dehydrogenase [LDH]; N40.0 Benign prostatic hyperplasia without lower urinary tract symptoms; R50.81 Fever presenting with conditions classified elsewhere; E80.6 Other disorders of bilirubin metabolism; R16.1 Splenomegaly, not elsewhere classified
CPT/HCPCS: 36415; 36430; 36511; 70450-TC; 71045-TC-FY; 71260-TC; 74177-TC; 76705-TC; 80048; 80053; 80061; 80076; 81003; 82140; 82803; 83010; 83605; 83615; 83721; 83735; 84100; 84484; 84550; 85025; 85027; 85610; 85730; 86480; 86747; 86850; 86900; 86901; 86922; 87040; 87086; 87116; 87206; 93005; 93010; 93970-TC; 97116-GP; 97161-GP; 99285-25; G0480; J0131; J1447; J7030; P9034; P9038; P9058

== ENCOUNTER 2018-05-28 18:53 | Emergency (ER) | payer OTHER ==
[2018-05-28 19:07] VITALS: BMI 23.2
--- NOTE | 2018-05-28 19:07 | PDOC ---
Attending Attestation - Resident Resident Name: Kandi Diaz - ED Attending Attestation I have performed the following: I have examined & evaluated the patient, The case was reviewed & discussed with the resident, I agree w/resident's findings & plan, Exceptions are as noted
--- NOTE | 2018-05-28 19:33 | PDOC ---
History of Present Illness - General Chief Complaint: Shortness of Breath Stated Complaint: Y Time Seen by Provider: 05/28/18 19:02 - History of Present Illness Initial Comments: 52yo with PMH of diffuse large B cell lymphoma s/p chemotherapy complicated by aplastic anemia (last chemo in February R-CHOP, itMTX; discontinued as patient platelets were reportedly extremely low) who presents for dyspnea on exertion. Patient reports that he ran out of his medication on Tuesday05/24/18 and since that time as been feeling symptoms of dyspnea on exertion which worsened in the past two days, prompting a visit to the ED. He is not able to name what the medicines are or who prescribed them. He states that his prescription did not have refills and the pharmacist said he would need to contact his doctor in order to get more medicine. Patient's niece has attempted to do so without success. Denies fevers, but endorses feeling "warm." No chest pain. 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 Past History - Past Medical History Allergies/Adverse Reactions: Allergies Allergy/AdvReac Type Severity Reaction Status Date / Time No Known Allergies Allergy Verified 04/29/18 15:04 Home Medications: Ambulatory Orders Eltrombopag Olamine [Promacta] 50 mg PO DAILY 04/29/18 Amox-Tr/K Cl [Augmentin 875-125mg Tablet -] 1 tab PO BID@0800,1730 #10 tablet Filgrastim [Neupogen] 300 mcg SQ DAILY 3 Days vial 05/12/18 Posaconazole [Noxafil] 100 mg PO DAILY #7 tab 05/12/18 Valacyclovir HCl [Valtrex -] 1,000 mg PO DAILY #7 tab 05/12/18 Anemia: Yes Cancer: Yes (B-cell lymphoma) COPD: No - Suicide/Smoking/Psychosocial Hx Smoking History: Unknown if ever smoked Hx Alcohol Use: No Drug/Substance Use Hx: No Review of Systems - Review of Systems Comments:: Constitutional: no fever, "feeling hot" HEENT: no throat pain, no dysphagia Cardiovascular: no chest pain, no palpitations Respiratory: no cough, +shortness of breath Gastrointestinal: no abdominal pain, no nausea Genitourinary: no dysuria, no frequency Musculoskeletal: no myalgia, no arthralgia Skin: no rash, no itching Neurologic: +headache, no weakness *Physical Exam - Vital Signs Last Vital Signs Temp Pulse Resp BP Pulse Ox 97.7 F 119 H 22 H 93/50 L 99 05/28/18 19:05 05/28/18 19:05 05/28/18 19:05 05/28/18 19:05 05/28/18 19:05 - Physical Exam Comments: General: Awake, alert, and fully oriented, in no acute distress Head: No signs of trauma Eyes: EOMI, sclera icteric ENT: Moist mucus membranes Neck: Normal ROM, supple Lungs: Lungs clear, decreased breath sounds at the bases Cardio: Regular rhythm, S1 and S2 present Abdomen: Soft, nontender Extremities: Normal range of motion, Distal pulses present, No calf tenderness SKIN: Yellowish tinge Neurologic: Cranial nerves II through XII grossly intact. Normal speech ED Treatment Course - LABORATORY CBC & Chemistry Diagram: 05/28/18 20:18 05/28/18 20:18 - RADIOLOGY Radiology Studies Ordered: Category Date Time Status CHEST X-RAY PORTABLE* [RAD] Stat Radiology 05/28/18 19:29 Ordered Medical Decision Making - Medical Decision Making 52yo with PMH of diffuse large B cell lymphoma s/p chemotherapy complicated by aplastic anemia (last chemo in February R-CHOP, itMTX; discontinued as patient platelets were reportedly extremely low) who presents for dypnea on exertion. DDX including but not limited to neutropenia, anemia, pancytopenia, ACS, PE, PNA 650mg tylenol for headache Triage VS significant for tachycardia, hypotension, and tachypnea Repeat BP is 118/71 Septic workup initiated Likely admission for dyspnea on exertion Per chart review: "Patient had been recently admitted to [facility] 01/31/18-02/11/2018 for SOB w/ hematemesis, multiple falls, and AMS and was found to be in aplastic crisis with SAH, distributive shock, and lactic acidosis. Was treated in NSICU for IV ABX and blood products. R-ICE started 02/08/18. Patient discharged with dx of paraneoplastic vs. disease infiltration for outpatient f/u." Admission at [facility] 04/29/18-05/12/18: "Pt is a 52 y/o gentleman with a significant pmh of diffuse Large B cell lymphoma, with recent admission to [facility] for AMS, SAH, polymicrobial bacteremia (including MRSA) and hematemesis. Pt Presented to [facility] as he was found with AMS by his niece. Routine lab work in ED revealed aplastic anemia. Pt received 1 unit of platelets and PRBCs in ED. CT head was negative for acute bleed. Lactic acid was 9.4. Pt was admitted to the ICU. Heme and ID were consulted. Vanc and zosyn were started. Pt also placed on Valtrex. Neutropenic precautions were implemented. During stay, pt was noted to have neutropenic fevers spiking between 05/03/18-05/05/2018. Blood cultures were negative. ABx were eventually switched to Vanc and Merrem. CTAP was performed to assess for any possible causes of infection in pt. CTAP revealed PNA and perirenal abscess extending to anus. A 0.7 cm Left upper lobe cavitary lesion was also appreciated on imaging. Due to suspicion of possible TB, quantiferon was ordered. Quantiferon result was negative. Sputum was sent for AFB which was negative as well. Pt received a total of 7 PRBCs transfusions and 3 platelet transfusions during his hospital course. Pt was offered to be transferred to [facility] as that was the location of his primary oncology team. Pt was adamant about not returning to [facility] due to personal feelings. Subsequently, [facility] was contacted for possible transfer as our medical team was in need of a tertiary care center with a lymphoma team which may have been able to provide more options for the patient. [facility] did not accept pt for transfer. An appointment was then made for the patient with Dr Tang, Keyboard Teacher of Hematology at [facility] at his outpatient clinic for May 15, 2018. Pt was NY'ed on Augmentin for possible mary jo-rectal abscess." 05/28/18 19:54 CXR without acute pathology, my impression Upon asking patient, he did follow up with Dr. Jorge Tang, hem-onc specialist, at [facility] after being discharged from this hospital earlier this month. 05/28/18 20:56 CBC WBC 1.4 K/mm3 (4.0-10.0) L* 05/28/18 20:18 RBC 0.80 M/mm3 (4.00-5.60) L 05/28/18 20:18 Hgb 2.4 GM/dL (11.7-16.9) L* 05/28/18 20:18 Hct 6.5 % (35.4-49) L 05/28/18 20:18 MCV 81.5 fl (80-96) 05/28/18 20:18 MCH 29.5 pg (25.7-33.7) 05/28/18 20:18 MCHC 36.1 g/dl (32.0-35.9) H 05/28/18 20:18 RDW 14.2 % (11.9-15.9) D 05/28/18 20:18 Plt Count 3 K/MM3 (134-434) L* D 05/28/18 20:18 MPV 10.2 fl (7.5-11.1) D 05/28/18 20:18 Absolute Neuts (auto) 0.4 K/mm3 (1.5-8.0) L 05/28/18 20:18 Neutrophils % 28.1 % (42.8-82.8) L D 05/28/18 20:18 Neutrophils % (Manual) 28.0 % (42.8-82.8) L 05/28/18 20:18 Lymphocytes % 55.7 % (8-40) H D 05/28/18 20:18 Lymphocytes % (Manual) 57.0 % (8-40) H 05/28/18 20:18 Monocytes % 14.9 % (3.8-10.2) H 05/28/18 20:18 Monocytes % (Manual) 15 % (3.8-10.2) H D 05/28/18 20:18 Eosinophils % 1.1 % (0-4.5) 05/28/18 20:18 Basophils % 0.2 % (0-2.0) 05/28/18 20:18 Nucleated RBC % 0 % (0-0) 05/28/18 20:18 Hypochromia 3+ 05/28/18 20:18 Platelet Estimate Decreased 05/28/18 20:18 Anisocytosis 2+ 05/28/18 20:18 Microcytosis 1+ 05/28/18 20:18 Macrocytosis 1+ 05/28/18 20:18 Critical value from lab: hgb 2.4, WBC 1.4, Plt 3 CMP Sodium 141 mmol/L (136-145) 05/28/18 20:18 Potassium 4.7 mmol/L (3.5-5.1) 05/28/18 20:18 Chloride 108 mmol/L (98-107) H 05/28/18 20:18 Carbon Dioxide 16 mmol/L (21-32) L 05/28/18 20:18 Anion Gap 17 MMOL/L (8-16) H 05/28/18 20:18 BUN 23 mg/dL (7-18) H 05/28/18 20:18 Creatinine 1.3 mg/dL (0.55-1.3) 05/28/18 20:18 Creat Clearance w eGFR 57.97 (>60) 05/28/18 20:18 Random Glucose 109 mg/dL (74-106) H 05/28/18 20:18 Lactic Acid 9.1 mmol/L (0.4-2.0) H* 05/28/18 20:00 Calcium 8.9 mg/dL (8.5-10.1) 05/28/18 20:18 Total Bilirubin 1.4 mg/dL (0.2-1) H 05/28/18 20:18 AST 55 U/L (15-37) H 05/28/18 20:18 ALT 84 U/L (13-61) H 05/28/18 20:18 Alkaline Phosphatase 134 U/L (45-117) H 05/28/18 20:18 Creatine Kinase 53 U/L (26-308) 05/28/18 20:18 Troponin I < 0.02 ng/ml (0.00-0.05) 05/28/18 20:18 B-Natriuretic Peptide 4339.3 pg/ml (5-125) H 05/28/18 20:18 Total Protein 6.4 g/dl (6.4-8.2) 05/28/18 20:18 Albumin 3.9 g/dl (3.4-5.0) 05/28/18 20:18 Anion Gap present likely due to lactic acidosis Tpn <0.02 Lactate 9.1 500cc fluids ordered for elevated lactate BNP is 4339.3, gentle fluid bolus to avoid overload Paged hem/onc 05/28/18 21:[address] Shea who recommended transfer, resuscitation with 2 units of single-donor platelets and 2 units PRBCs. Vanc/Zosyn. 05/28/18 21:37 Patient amenable to transfer. Consent signed. pattern weaver is contacting the transfer center 05/28/18 21:[address] Fields at [facility] who accepted patient for transfer 05/28/18 22:07 2 units of PRBCs, 1 unit platelets ready 05/28/18 22:27 EKG: rate 114, QTc 468, Sinus tachycardia, low voltage QRS, 05/28/18 22:47 Patient left the department with EMS 05/28/18 23:32 *DC/Admit/Observation/Transfer Diagnosis at time of Disposition: Aplastic anemia B-cell lymphoma Qualifiers: B-cell lymphoma type: diffuse large B-cell Lymphoma site: unspecified region Qualified Code(s): C83.30 - Diffuse large B-cell lymphoma, unspecified site - Discharge Dispostion Disposition: TRANSFER ACUTE CARE/OTHER HOSP Condition at time of disposition: Guarded - Referrals - Patient Instructions - Post Discharge Activity
[2018-05-28] MEDS ORDERED: ACETAMINOPHEN 325 MG TABLET (FP) PO ONE (19:34)
[2018-05-28 20:33] LABS: BASO % 0.2 % (0-2.0); EOS % 1.1 % (0-4.5); HEMATOCRIT 6.5 % (35.4-49); LYMPH % 55.7 % (8-40); MCH 29.5 pg (25.7-33.7); MCHC 36.1 g/dl (32.0-35.9); MEAN CELL VOLUME 81.5 fl (80-96); MEAN PLT VOLUME 10.2 fl (7.5-11.1); MONO % 14.9 % (3.8-10.2); NEUT % 28.1 % (42.8-82.8); RDW 14.2 % (11.9-15.9)
[2018-05-28 21:04] LABS: ALBUMIN 3.9 g/dl (3.4-5.0); ALK PHOS 134 U/L (45-117); ANION GAP 17 MMOL/L (8-16); BILIRUBIN,TOTAL 1.4 mg/dL (0.2-1); BLOOD UREA NITROGEN 23 mg/dL (7-18); CALCIUM 8.9 mg/dL (8.5-10.1); CHLORIDE 108 mmol/L (98-107); CO2 16 mmol/L (21-32); CREATININE 1.3 mg/dL (0.55-1.3); GLUCOSE,RANDOM 109 mg/dL (74-106); N-TERMINAL BNP 4339.3 pg/ml (5-125); POTASSIUM 4.7 mmol/L (3.5-5.1); SGOT/AST 55 U/L (15-37); SGPT/ALT 84 U/L (13-61); SODIUM 141 mmol/L (136-145); TOT PROT 6.4 g/dl (6.4-8.2)
[2018-05-28 21:06] LABS: HEMOGLOBIN 2.4 GM/dL (11.7-16.9); PLATELET COUNT 3 K/MM3 (134-434); WHITE BLOOD COUNT 1.4 K/mm3 (4.0-10.0)
[2018-05-28 21:27] LABS: INR 1.22 (0.83-1.09); PROTHROMBIN TIME (PATIENT) 14.4 SEC (9.7-13.0)
[2018-05-28 21:30] LABS: ACTIVATED PTT 28.9 SECONDS (25.2-36.5)
[2018-05-28] MEDS ORDERED: PIPERACILLIN/TAZOB 4.5 GM 4.5 GM in DEXTROSE 5%-WATER 100 ML IVPB ONE (21:35)
[2018-05-28] MEDS ORDERED: VANCOMYCIN 1,000 MG in DEXTROSE 5%-WATER - 250 ML IVPB ONE (21:35)
[2018-05-28 21:49] LABS: ANISOCYTOSIS 2+; MACROCYTOSIS 1+
[2018-05-28 21:50] LABS: PLATELET ESTIMATE DECREASED
[2018-05-28] MEDS ORDERED: SODIUM CHLORIDE 500 ML IV STA (21:52)
[2018-05-28] MEDS ORDERED: PIPERACILLIN/TAZOB 4.5 GM 4.5 GM/100 ML BAG IVPB ONE (22:08)
[2018-05-28] MEDS ORDERED: VANCOMYCIN 1 GRAM (PRE-DOCKED) 1,000 MG/250 ML BAG IVPB ONE (22:10)
[2018-05-28] MEDS ORDERED: ACETAMINOPHEN 325 MG TABLET (FP) ONE (22:12)
[2018-05-28] MEDS ORDERED: ACETAMINOPHEN 650 MG/20.3 ML ORAL SOLUTION (CUPS) ONE (22:12)
--- NOTE | 2018-05-29 02:11 | PDOC ---
Documentation entered by Eric Farrar SCRIBE, acting as scribe for Rina Post MD. Rina Post MD: This documentation has been prepared by the Leni shafer Nirvannie, SCRIBE, under my direction and personally reviewed by me in its entirety. I confirm that the documentation accurately reflects all work, treatment, procedures, and medical decision making performed by me. Attending Attestation - Resident Resident Name: Kandi Diaz - ED Attending Attestation I have performed the following: I have examined & evaluated the patient, The case was reviewed & discussed with the resident, I agree w/resident's findings & plan - HPI HPI: 05/28/18 20:24 The patient is a 52 year old male, with a significant past medical history of B cell lymphoma s/p chemotherapy complicated by aplastic anemia, and recent neutropenic fever, who presents to the emergency department with, 5 days of dyspnea upon exertion after finishing his course of antibiotics. Patient was recently discharged from [facility] 05/12. Allergies: NKDA - Physicial Exam PE: 05/28/18 22:11 Ill appearing 52 yo male p/w increased resp rate and c/o shortness of breath head ncat eyes icteric sclera neck supple lungs cta b/l cvs tachycardia abd flat ,nontender skin warm and dry neuro alert,Khmer speaking . and niece at bedside 05/28/18 22:31 05/28/18 22:34 - Critical Care Time Total Critical Care Time: 120 Critical Care Statement: The care of this patient involved high complexity decision making to prevent further life threatening deterioration of the patient 's condition and/or to evaluate & treat vital organ system(s) failure or risk of failure. - Medical Decision Making 05/28/18 19:51 Patient with a history of B-cell lymphoma and aplastic anemia, presents with for 5 days of increasing exertional dyspnea. Patient was discharged on April 11 from this hospital for treatment of the wound -pt has been seen by Dr Jorge Tang at [facility] earlier this month. This pt is not currently receiving any chemotherapy Call placed to [facility] for new transfer, awaiting call back from Dr. Tang (heme/onc). 05/28/18 22:08 Case discussed w [facility] for transfer and accepted by DR RODRIGUEZ ,hematology IMP diffuse large B cell lymphoma,pancytopenia, acidotic plan platelet transfusion, transfusoin of pRBCs 05/28/18 22:35 She was admitted April 29 2018 for altered mental status REVIEW OF OLD CHART : work up for TB negative in April of this year. There was a 0.7 cm left upper lobe cavitary lesion and therefore suspicious for possible TB. QUANTIFERON was ordered and it was found to be negative. Sputum was sent for AFB, which was negative as well. During his last hospitalization he received a total of 7 packed RBCs transfusions and 3 platelet transfusions during the hospital course. - 05/28/18 23:07 05/28/18 23:17 [facility] transfer team is here
[2018-05-29 07:42] VITALS: BP 103/65; PULSE 112; TEMP 97.9
--- NOTE | 2018-05-29 09:52 | EKG ---
Test Reason : Blood Pressure : / mmHG Vent. Rate : 114 BPM Atrial Rate : 114 BPM P-R Int : 170 ms QRS Dur : 086 ms QT Int : 340 ms P-R-T Axes : 075 [id number] 008 degrees QTc Int : 468 ms SINUS TACHYCARDIA LOW VOLTAGE QRS NONSPECIFIC ST AND T WAVE ABNORMALITY ABNORMAL ECG WHEN COMPARED WITH ECG OF 29-APR-2018 17:34, NO SIGNIFICANT CHANGE WAS FOUND Confirmed by SHREYA INGRAM MD ([id number]) on 05/29/2018 9:52:04 AM Referred By: Confirmed By:SHREYA INGRAM MD
== END 2018-05-28 23:28 | disposition short-term general hospital (02) ==
LOC: JER 18:53
PROC: 3E0337Z Introduction of Electrolytic and Water Balance Substance into Peripheral Vein, Percutaneous Approach (ICD-10-PCS; principal; 2018-05-28)
PROC: 3E03329 Introduction of Other Anti-infective into Peripheral Vein, Percutaneous Approach (ICD-10-PCS; 2018-05-28)
PROC: 3E03329 Introduction of Other Anti-infective into Peripheral Vein, Percutaneous Approach (ICD-10-PCS; 2018-05-28)
PROC: 30233R1 Transfusion of Nonautologous Platelets into Peripheral Vein, Percutaneous Approach (ICD-10-PCS; 2018-05-28)
DX: D61.9 Aplastic anemia, unspecified (principal); C83.30 Diffuse large B-cell lymphoma, unspecified site
CPT/HCPCS: 36415; 71045-TC-FY; 80053; 82550; 83605; 83880; 84484; 85025; 85610; 85730; 86922; 87040; 93005; 93010; 96361; 96365; 96366; 96367; 99284-25